=== PATIENT | female | born 1930 | race Caucasian/White ===

== ENCOUNTER → 2017-01-07 | Outpatient (CLI) | payer MEDICARE, BC | LOC: MW.CHNEURO 08:00 | PROVIDERS: ATTEND Psychiatry & Neurology Neuromuscular Medicine | DX: R25.9 Unspecified abnormal involuntary movements (principal); R42 Dizziness and giddiness | CPT/HCPCS: 99214 ==

== ENCOUNTER 2018-12-12 22:04 | Observation (INO) | payer MEDICARE, BC ==
--- NOTE | 2018-12-12 23:48 | CR ---
Pain AP pelvis left hip views. Comparison hip x-rays 03/12/2016. Findings: Right hip arthroplasty in satisfactory position. Moderate degenerative change of the left hip. No acute fracture seen. Nonspecific rounded calcifications in the pelvis. Degenerative changes SI joints. IMPRESSION: 1. No acute fracture or dislocation. Dictated by Marta Llanes MD @ Dec 12 2018 11:43PM Signed by Dr. Marta Llanes @ Dec 12 2018 11:48PM
--- NOTE | 2018-12-13 00:18 | EDM.PDOC ---
ED HPI GENERAL MEDICAL PROBLEM - General Chief Complaint: Lower Extremity Injury/Pain Stated Complaint: HIP PAIN Time Seen by Provider: 12/13/18 00:16 Source of Information: Reports: Patient - History of Present Illness INITIAL COMMENTS - FREE TEXT/NARRATIVE: HISTORY AND PHYSICAL: History of present illness: []Patient presents with left hip pain, she pivoted today at home in her kitchen and heard a pop and has been unable to ambulate since she generally lives independently and uses walker whenever is unable to ambulate at current even with assistance No other symptoms no fever nausea vomiting chills sweats no chest pain shortness breath headache dizziness palpitation no bowel or urine symptoms Review of systems: As per history of present illness and below otherwise all systems reviewed and negative. Past medical history: As per history of present illness and as reviewed below otherwise noncontributory. Surgical history: As per history of present illness and as reviewed below otherwise noncontributory. Social history: No reported history of drug or alcohol abuse. Family history: As per history of present illness and as reviewed below otherwise noncontributory. Physical exam: HEENT: Atraumatic, normocephalic, pupils reactive, negative for conjunctival pallor or scleral icterus, mucous membranes moist, throat clear, neck supple, nontender, trachea midline. Lungs: Clear to auscultation, breath sounds equal bilaterally, chest nontender. Heart: S1S2, regular, negative for clicks, rubs, or JVD. Abdomen: Soft, nondistended, nontender. Negative for masses or hepatosplenomegaly. Negative for costovertebral tenderness. Pelvis: Stable nontender. Genitourinary: Deferred. Rectal: Deferred. Extremities: Atraumatic, negative for cords or calf pain. Neurovascular unremarkable. Neuro: Awake, alert, oriented. Cranial nerves II through XII unremarkable. Cerebellum unremarkable. Motor and sensory unremarkable throughout. Exam nonfocal. Diagnostics: Left hip plain films Therapeutics Assistance with ADLs patient admitted observation Consider CT of hip Impression: [ left hip pain ] Definitive disposition and diagnosis as appropriate pending reevaluation and review of above. - Related Data Allergies Allergy/AdvReac Type Severity Reaction Status Date / Time YANY Inhibitors Allergy Airway Verified 04/19/16 15:37 Tightness erythromycin base Allergy Airway Verified 04/19/16 15:37 [From Staticin] Tightness ethyl alcohol [From Staticin] Allergy Airway Verified 04/19/16 15:37 Tightness hydrochlorothiazide Allergy Airway Verified 04/19/16 15:37 Tightness latex Allergy Rash Verified 03/12/16 13:23 perfume Allergy Airway Verified 04/19/16 15:37 Tightness acrylic Allergy Airway Uncoded 07/06/14 14:43 Tightness cleaning chemicals Allergy Difficulty Uncoded 12/12/18 22:12 Breathing metal Allergy Airway Uncoded 07/06/14 14:43 Tightness polyester Allergy Airway Uncoded 07/06/14 14:43 Tightness Home Meds: Home Meds Levothyroxine [Synthroid] 50 mcg PO DAILY 02/22/14 [History] Carbidopa/Levodopa [Carbidopa-Levodopa 25-100 Tab] 25 - 100 tab PO TID 04/19/16 [History] Mouthwash-Om 1 dose PO ASDIRECTED PRN 04/19/16 [History] Multivitamin [Daily Multiple Vitamin] 1 tab PO DAILY 04/19/16 [History] Omeprazole 20 mg PO BID 04/19/16 [History] Ubidecarenone [Co Q-10] 1 cap PO DAILY 04/19/16 [History] predniSONE [Prednisone] 5 mg PO BID 04/19/16 [History] Acetaminophen [Tylenol] 650 mg PO ASDIRECTED PRN 12/12/18 [History] Albuterol Sulfate [Proair Respiclick] 2 puff INH Q6H PRN 12/12/18 [History] Albuterol [Proventil Neb Soln] 2.5 mg INH QIDRT 12/12/18 [History] Better Woman 1 tab PO DAILY 12/12/18 [History] Brimonidine [Alphagan 0.2% Ophth Soln] 1 drop EYEBOTH BID 12/12/18 [History] Budesonide/Formoterol [Symbicort 160-4.5 MCG] 2 puff INH BID 12/12/18 [History] Carboxymethylcellulose Sodium [Refresh Tears] 1 drop EYEBOTH DAILY 12/12/18 [ History] Fish Oil/[place]-3 Fatty Acids [Fish Oil 1,000 MG] 1,000 mg PO BID 12/12/18 [ History] Mineral Oil/Petrolatum,White [Refresh P.M.] 1 applic EYEBOTH BEDTIME 12/12/18 [ History] Timolol Maleate [Timoptic 0.5% Ophth Soln] 1 drop EYEBOTH BID 12/12/18 [History] amLODIPine [Norvasc] 5 mg PO DAILY 12/12/18 [History] Past Medical History HEENT History: Reports: Allergic Rhinitis, Cataract, Hard of Hearing, Impaired Vision, Other (See Below) Other HEENT History: wears glasses Cardiovascular History: Reports: Hypertension Respiratory History: Reports: Asthma Gastrointestinal History: Reports: GERD Genitourinary History: Reports: 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: Musculoskeletal History: Reports: Arthritis, Osteoarthritis, RA, Other (See Below) Other Musculoskeletal History: bursitis Neurological History: Reports: Vertigo Other Neuro History: essential tremors Psychiatric History: Reports: Anxiety Endocrine/Metabolic History: Reports: Hypothyroidism Hematologic History: Reports: None Oncologic (Cancer) History: Reports: None Dermatologic History: Reports: Other (See Below) 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 - Past Surgical History Head Surgeries/Procedures: Reports: None HEENT Surgical History: Reports: Cataract Surgery, Tonsillectomy Cardiovascular Surgical History: Reports: None Respiratory Surgical History: Reports: None GI Surgical History: Reports: Appendectomy Female Surgical History: Reports: Kidney stone extraction Endocrine Surgical History: Reports: None Neurological Surgical History: Reports: None Musculoskeletal Surgical History: Reports: Hip Replacement, Other (See Below) Other Musculoskeletal Surgeries/Procedures:: right hip Oncologic Surgical History: Reports: None Social & Family History - Family History Family Medical History: Noncontributory - Tobacco Use Smoking Status *Q: Never Smoker Second Hand Smoke Exposure: No - Caffeine Use Caffeine Use: Reports: Coffee - Recreational Drug Use Recreational Drug Use: No Review of Systems - Review of Systems Review Of Systems: See Below ED EXAM, GENERAL - Physical Exam Exam: See Below Course - Vital Signs Last Recorded V/S: Last Vital Signs Temp 97 F 12/12/18 22:07 Pulse 74 12/12/18 22:46 Resp 18 12/12/18 22:46 BP 183/84 H 12/12/18 22:46 Pulse Ox 95 12/12/18 22:46 Departure - Departure Time of Disposition: 00:17 Disposition: Refer to Observation Condition: Good Clinical Impression: Injury of left hip - Discharge Information Referrals: PCP,None [Primary Care Provider] -
[2018-12-13] MEDS ORDERED: Sodium Chloride 0.9% 10 ML Syringe FLUSH PRN (01:26)
[2018-12-13] MEDS ORDERED: Sodium Chloride 0.9% 2.5 ML Syringe FLUSH PRN (01:26)
[2018-12-13] MEDS ORDERED: Acetaminophen 325 MG Tab PO PRN (01:27)
[2018-12-13] MEDS ORDERED: oxyCODONE 5 MG Tab PO PRN (01:28)
[2018-12-13] MEDS: Albuterol/Ipratropium 3.0-0.5 MG/3 ML Neb Soln NEB SCH ×5 (02:36→20:13)
[2018-12-13] MEDS: Budesonide/Formoterol 160-4.5 MCG/Puff 6 GM Inhaler INH SCH ×3 (02:38→20:43)
--- NOTE | 2018-12-13 06:43 | PCM.HP ---
H&P History of Present Illness - General Date of Service: 12/13/18 Admit Problem/Dx: Admission Diagnosis/Problem Admission Diagnosis/Problem Injury Source of Information: Patient, Old Records History Limitations: Reports: No Limitations - History of Present Illness Initial Comments - Free Text/Narative: The patient is an 88-year-old lady who presented to the emergency department out of concern for left hip pain. She was standing, turned felt and heard a loud pop in her left hip and had been unable to ambulate. The patient normally uses a walker and in the emergency department she was unable to ambulate. The patient was then admitted to observation, pain control and physical therapy evaluation. The patient lives by herself. The patient also has a history of hypertension, Parkinson's disorder and hypothyroidism for which she takes medication. The patient has said that her pain is somewhat improved. Onset of Symptoms: Reports: Sudden Duration of Symptoms: Reports: Hour(s):, Improving Location: Reports: Lower Extremity, Left. Denies: Radiates to Quality: Reports: Sharp, Stabbing Severity: Moderate Improves with: Reports: Rest Worsens with: Reports: Movement Context: Reports: Trauma Associated Symptoms: Reports: No Other Symptoms - Related Data Allergies/Adverse Reactions: Allergies Allergy/AdvReac Type Severity Reaction Status Date / Time YANY Inhibitors Allergy Airway Verified 12/13/18 04:32 Tightness erythromycin base Allergy Airway Verified 12/13/18 04:32 [From Staticin] Tightness ethyl alcohol [From Staticin] Allergy Airway Verified 12/13/18 04:32 Tightness hydrochlorothiazide Allergy Airway Verified 12/13/18 04:32 Tightness latex Allergy Rash Verified 12/13/18 04:32 perfume Allergy Airway Verified 12/13/18 04:32 Tightness acrylic Allergy Airway Uncoded 12/13/18 04:32 Tightness cleaning chemicals Allergy Difficulty Uncoded 12/13/18 04:32 Breathing metal Allergy Airway Uncoded 12/13/18 04:32 Tightness polyester Allergy Airway Uncoded 12/13/18 04:32 Tightness Home Medications: Home Meds Levothyroxine [Synthroid] 50 mcg PO DAILY 02/22/14 [History] Carbidopa/Levodopa [Carbidopa-Levodopa 25-100 Tab] 25 - 100 tab PO TID 04/19/16 [History] Mouthwash-Om 1 dose PO ASDIRECTED PRN 04/19/16 [History] Multivitamin [Daily Multiple Vitamin] 1 tab PO DAILY 04/19/16 [History] Omeprazole 20 mg PO BID 04/19/16 [History] Ubidecarenone [Co Q-10] 1 cap PO DAILY 04/19/16 [History] predniSONE [Prednisone] 5 mg PO BID 04/19/16 [History] Acetaminophen [Tylenol] 650 mg PO ASDIRECTED PRN 12/12/18 [History] Albuterol Sulfate [Proair Respiclick] 2 puff INH Q6H PRN 12/12/18 [History] Albuterol [Proventil Neb Soln] 2.5 mg INH QIDRT 12/12/18 [History] Better Woman 1 tab PO DAILY 12/12/18 [History] Brimonidine [Alphagan 0.2% Ophth Soln] 1 drop EYEBOTH BID 12/12/18 [History] Budesonide/Formoterol [Symbicort 160-4.5 MCG] 2 puff INH BID 12/12/18 [History] Carboxymethylcellulose Sodium [Refresh Tears] 1 drop EYEBOTH DAILY 12/12/18 [ History] Fish Oil/[place]-3 Fatty Acids [Fish Oil 1,000 MG] 1,000 mg PO BID 12/12/18 [ History] Mineral Oil/Petrolatum,White [Refresh P.M.] 1 applic EYEBOTH BEDTIME 12/12/18 [ History] Timolol Maleate [Timoptic 0.5% Ophth Soln] 1 drop EYEBOTH BID 12/12/18 [History] amLODIPine [Norvasc] 5 mg PO DAILY 12/12/18 [History] Past Medical History HEENT History: Reports: Allergic Rhinitis, Cataract, Hard of Hearing, Impaired Vision, Other (See Below) Other HEENT History: wears glasses, hearing aids and dentures-partial top and bottom Cardiovascular History: Reports: Hypertension Respiratory History: Reports: Asthma Gastrointestinal History: Reports: GERD Genitourinary History: Reports: None [employer] History: Reports: Musculoskeletal History: Reports: Arthritis, Osteoarthritis, RA, Other (See Below) Other Musculoskeletal History: bursitis Neurological History: Reports: Vertigo Other Neuro History: essential tremors Psychiatric History: Reports: Anxiety Endocrine/Metabolic History: Reports: Hypothyroidism Hematologic History: Reports: None Oncologic (Cancer) History: Reports: None Dermatologic History: Reports: Other (See Below) 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 - Past Surgical History Head Surgeries/Procedures: Reports: None HEENT Surgical History: Reports: Cataract Surgery, Tonsillectomy Cardiovascular Surgical History: Reports: None Respiratory Surgical History: Reports: None GI Surgical History: Reports: Appendectomy Female Surgical History: Reports: Kidney stone extraction Endocrine Surgical History: Reports: None Neurological Surgical History: Reports: None Musculoskeletal Surgical History: Reports: Hip Replacement, Other (See Below) Other Musculoskeletal Surgeries/Procedures:: right hip Oncologic Surgical History: Reports: None Social & Family History - Family History Family Medical History: Noncontributory - Tobacco Use Smoking Status *Q: Never Smoker Second Hand Smoke Exposure: No - Caffeine Use Caffeine Use: Reports: Coffee - Recreational Drug Use Recreational Drug Use: No - Living Situation & Occupation Living situation: Reports: Occupation: Retired H&P Review of Systems - Review of Systems: Review Of Systems: See Below General: Reports: No Symptoms HEENT: Reports: No Symptoms Pulmonary: Reports: No Symptoms Cardiovascular: Reports: No Symptoms Gastrointestinal: Reports: No Symptoms Genitourinary: Reports: No Symptoms Musculoskeletal: Reports: Leg Pain Skin: Reports: No Symptoms Psychiatric: Reports: No Symptoms Neurological: Reports: No Symptoms Hematologic/Lymphatic: Reports: No Symptoms Immunologic: Reports: No Symptoms Exam - Exam Exam: See Below - Vital Signs Vital Signs: Last Vital Signs Temp 36.3 C 12/13/18 04:00 Pulse 60 12/13/18 04:00 Resp 16 12/13/18 04:00 BP 130/67 12/13/18 04:00 Pulse Ox 95 12/13/18 04:00 Weight: 65 kg - Exam Quality Assessment: No: Supplemental Oxygen General: Alert, Oriented, 4 HEENT: Conjunctiva Clear, EACs Clear, EOMI, Hearing Intact, Mucosa Moist & [place] , Pupils Equal, PERRLA Neck: Supple, Trachea Midline, 2 Lungs: Clear to Auscultation, Normal Respiratory Effort Cardiovascular: Regular Rate, Regular Rhythm GI/Abdominal Exam: Normal Bowel Sounds, Soft, Non-Tender, No Distention (Female) Exam: Deferred Rectal (Female) Exam: Deferred Back Exam: Normal Inspection, Full Range of Motion, NT Extremities: Normal Inspection, Normal Range of Motion, Non-Tender (To palpation in inguinal area on left, no pain on internal/external rotation of hip.), No Pedal Edema. No: Joint Swelling Skin: Warm, Dry, Intact Neurological: Cranial Nerves Intact Neuro Extensive - Mental Status: Alert, Oriented x3 Psychiatric: Alert, Normal Affect, Normal Mood - Patient Data Result Diagrams: 12/13/18 10:41 12/13/18 10:41 - Problem List (1) Strain of left hip SNOMED Code(s): 117612400 ICD Code: S76.012A - STRAIN OF MUSCLE, FASCIA AND TENDON OF LEFT HIP, INIT ENCNTR Status: Acute Priority: High Current Visit: Yes Qualifiers: Encounter type: initial encounter Qualified Code(s): S76.012A - Strain of muscle, fascia and tendon of left hip, initial encounter (2) COPD (chronic obstructive pulmonary disease) SNOMED Code(s): 61553447 ICD Code: J44.9 - CHRONIC OBSTRUCTIVE PULMONARY DISEASE, UNSPECIFIED Status : Chronic Current Visit: Yes Qualifiers: COPD type: unspecified COPD Qualified Code(s): J44.9 - Chronic obstructive pulmonary disease, unspecified (3) Parkinsons disease SNOMED Code(s): 60654112 ICD Code: G20 - PARKINSON'S DISEASE Status: Chronic Priority: Medium Current Visit: Yes (4) Chronic renal insufficiency, stage III (moderate) SNOMED Code(s): 742725785 ICD Code: N18.3 - CHRONIC KIDNEY DISEASE, STAGE 3 (MODERATE) Status: Chronic Priority: Medium Current Visit: Yes Problem List Initiated/Reviewed/Updated: Yes Orders Last 24hrs: Active Orders 24 hr Category Date Time Status Admission Status [Patient Status] [ADT] Stat ADT 12/13/18 00:18 Active RT Aerosol Therapy [RC] ASDIRECTED Care 12/13/18 01:32 Active RT Post Treatment Assessment [RC] Click to Edit Care 12/13/18 01:30 Active RT Pre-Treatment Assessment [RC] Click to Edit Care 12/13/18 01:30 Active Consult to Occupational Therapy [OT Evaluation and Cons 12/13/18 01:27 Active Treatment] [CONS] Routine Consult to Physical Therapy [PT Evaluation and Cons 12/13/18 01:26 Active Treatment] [CONS] Routine Regular Diet [DIET] Diet 12/13/18 Breakfast Active Acetaminophen [Tylenol] Med 12/13/18 01:27 Active 650 mg PO Q6H PRN Albuterol/Ipratropium [DuoNeb 3.0-0.5 MG/3 ML] Med 12/13/18 01:30 Active 3 ml NEB QIDRT Budesonide/Formoterol [Symbicort 160-4.5 MCG] Med 12/13/18 01:28 Active 2 gm INH BID Sodium Chloride 0.9% [Saline Flush] Med 12/13/18 01:26 Active 10 ml FLUSH ASDIRECTED PRN Sodium Chloride 0.9% [Saline Flush] Med 12/13/18 01:26 Active 2.5 ml FLUSH ASDIRECTED PRN oxyCODONE Med 12/13/18 01:28 Active 5 mg PO Q4H PRN Saline Lock Insert [OM.PC] Routine Oth 12/13/18 01:26 Ordered Medication Orders Acetaminophen (Tylenol) 650 mg PO Q6H PRN PRN Reason: Pain (mild 1-3) Albuterol/Ipratropium (Duoneb 3.0-0.5 Mg/3 Ml) 3 ml NEB QIDRT [facility] Last Admin: 12/13/18 06:12 Dose: 3 ml Admin: 12/13/18 02:36 Dose: 3 ml Budesonide/Formoterol Fumarate (Symbicort 160-4.5 Mcg) 2 gm INH BID [facility] Last Admin: 12/13/18 02:38 Dose: 2 puff Oxycodone HCl (Oxycodone) 5 mg PO Q4H PRN PRN Reason: Pain (moderate 4-6) Sodium Chloride (Saline Flush) 10 ml FLUSH ASDIRECTED PRN PRN Reason: Keep Vein Open Sodium Chloride (Saline Flush) 2.5 ml FLUSH ASDIRECTED PRN PRN Reason: Keep Vein Open Assessment/Plan Comment:: The patient is an 88-year-old lady who had presented primarily out of concern of not being able to ambulate after feeling of a "pop" in her left hip. The patient says that her pain has improved. X-rays obtained to the emergency department had not shown any signs of fracture. The pain is also not present on internal and external rotation of her hip therefore occult fracture is less likely. The patient likely has a simple strain of her hip and physical therapy has been ordered for her. The patient will also be anticoagulated for DVT prophylaxis. The patient also has COPD which is otherwise stable at this point. She has been recommended to follow-up with her primary care physician. The patient should be appropriate for discharge tomorrow after evaluation by physical therapy.
[2018-12-13] MEDS ORDERED: Non-Formulary Medication 1 Each (Albuterol Sulfate [Proair Respiclick] 2 PUFF) INH PRN (06:49)
[2018-12-13] MEDS: Timolol Maleate 0.5% Ophth Soln 15 ML Bottle EYEBOTH SCH ×2 (08:46→20:42)
[2018-12-13] MEDS: Carboxymethylcellulose Sodium 0.5% Ophth Soln 0.4 ML UD Box of 30 EYEBOTH SCH (08:47)
[2018-12-13] MEDS ORDERED: Albuterol 8 GM Inhaler INH PRN (08:49)
[2018-12-13] MEDS: predniSONE 5 MG Tab PO SCH ×2 (08:49→20:40)
[2018-12-13] MEDS ORDERED: Levothyroxine 50 MCG Tab PO SCH (09:00)
[2018-12-13] MEDS ORDERED: Omeprazole 20 MG Cap.CR PO SCH (09:00)
[2018-12-13] MEDS ORDERED: amLODIPine 5 MG Tab PO SCH ×2 (09:00→21:00)
[2018-12-13] MEDS ORDERED: Brimonidine 0.2% Ophth Soln 5 ML Bottle EYEBOTH SCH (09:00)
[2018-12-13] MEDS ORDERED: Budesonide/Formoterol 160-4.5 MCG/Puff 6 GM Inhaler INH SCH (09:00)
[2018-12-13] MEDS: Carbidopa/Levodopa 25-100 MG Tab PO SCH ×3 (10:08→20:40)
[2018-12-13] MEDS ORDERED: Albuterol 0.083% 2.5 MG/3 ML Neb Soln INH SCH (11:00)
[2018-12-13] MEDS ORDERED: Albuterol 0.5% 2.5 MG/0.5 ML Neb Soln INH SCH (11:00)
[2018-12-13] MEDS: Heparin Sodium 5,000 Units/ML Vial SUBCUT SCH ×3 (11:05→23:36)
[2018-12-13] MEDS: Omeprazole 20 MG Cap.CR PO SCH (16:24)
[2018-12-13] MEDS: Brimonidine 0.2% Ophth Soln 5 ML Bottle EYEBOTH SCH (20:40)
[2018-12-13] MEDS ORDERED: Mineral Oil/Petrolatum Ophth Oint 3.5 GM Tube EYEBOTH SCH (21:00)
[2018-12-14] MEDS: Albuterol/Ipratropium 3.0-0.5 MG/3 ML Neb Soln NEB SCH ×2 (05:44→10:39)
[2018-12-14] MEDS: Omeprazole 20 MG Cap.CR PO SCH (06:36)
[2018-12-14] MEDS ORDERED: Levothyroxine 50 MCG Tab PO SCH (07:30)
[2018-12-14] MEDS: Heparin Sodium 5,000 Units/ML Vial SUBCUT SCH (09:33)
[2018-12-14] MEDS: Brimonidine 0.2% Ophth Soln 5 ML Bottle EYEBOTH SCH (09:34)
[2018-12-14] MEDS: Carbidopa/Levodopa 25-100 MG Tab PO SCH (09:34)
[2018-12-14] MEDS: Carboxymethylcellulose Sodium 0.5% Ophth Soln 0.4 ML UD Box of 30 EYEBOTH SCH (09:34)
[2018-12-14] MEDS: predniSONE 5 MG Tab PO SCH (09:34)
[2018-12-14] MEDS: Timolol Maleate 0.5% Ophth Soln 15 ML Bottle EYEBOTH SCH (09:35)
[2018-12-14 09:41] VITALS: BP 146/70
--- NOTE | 2018-12-14 09:58 | PCM.DCSUM1 ---
Discharge Summary - Hospital Course HPI Initial Comments: The patient was in her house, turned and felt a pop in her left hip. Brief History: Pain left hip, no trauma Diagnosis: Stroke: No - Discharge Data Discharge Date: 12/14/18 Discharge Disposition: Home, Self-Care 01 Condition: Fair - Discharge Diagnosis/Problem(s) (1) Strain of left hip SNOMED Code(s): 580812936 ICD Code: S76.012A - STRAIN OF MUSCLE, FASCIA AND TENDON OF LEFT HIP, INIT ENCNTR Status: Acute Priority: High Qualifiers: Encounter type: initial encounter Qualified Code(s): S76.012A - Strain of muscle, fascia and tendon of left hip, initial encounter (2) COPD (chronic obstructive pulmonary disease) SNOMED Code(s): 25358078 ICD Code: J44.9 - CHRONIC OBSTRUCTIVE PULMONARY DISEASE, UNSPECIFIED Status : Chronic Priority: Medium Qualifiers: COPD type: unspecified COPD Qualified Code(s): J44.9 - Chronic obstructive pulmonary disease, unspecified (3) Parkinsons disease SNOMED Code(s): 86466974 ICD Code: G20 - PARKINSON'S DISEASE Status: Chronic Priority: Medium (4) Chronic renal insufficiency, stage III (moderate) SNOMED Code(s): 669752882 ICD Code: N18.3 - CHRONIC KIDNEY DISEASE, STAGE 3 (MODERATE) Status: Chronic Priority: Medium - Patient Summary/Data Consults: Consultations 12/13/18 01:26 Consult to Physical Therapy [PT Evaluation and Treatment] [CONS] Routine 12/13/18 01:27 Consult to Occupational Therapy [OT Evaluation and Treatment] [CONS] Routine Hospital Course: The patient is an 88-year-old lady who presented to the emergency department out of concern for left hip pain. She was standing, turned felt and heard a loud pop in her left hip and had been unable to ambulate. The patient also had x -rays taken in the emergency department which did not show signs of fracture. The patient normally uses a walker and in the emergency department she was unable to ambulate. This was likely representing a strain which was causing the patient to have uncomfortable ambulation. The patient was then admitted to observation, pain control and physical therapy evaluation. Upon physical examination the pain did not return with internal or external rotation of her left hip therefore occult fracture was less likely and CT scan was not performed. The patient had continued to improve through the short course of hospitalization. The patient also had been ambulating with her walker and she had requested a collapsible frontwheel walker for her home. This is been ordered from [employer]. The patient has been tolerating her diet. She was relatively pain free. The patient has been tolerating her diet. She has been recommended to continue with her diet as tolerated. The patient is also to have activity as tolerated. She has been discharged from acute hospitalization with recommendations listed above. - Patient Instructions Diet: Heart Healthy Diet Activity: As Tolerated Notify Provider of: Fever, Increased Pain - Discharge Plan *PRESCRIPTION DRUG MONITORING PROGRAM REVIEWED*: No *COPY OF PRESCRIPTION DRUG MONITORING REPORT IN PATIENT LISBETH: No Home Medications: Home Meds Levothyroxine [Synthroid] 50 mcg PO DAILY 02/22/14 [History] Carbidopa/Levodopa [Carbidopa-Levodopa 25-100 Tab] 25 - 100 tab PO TID 04/19/16 [History] Mouthwash-Om 1 dose PO ASDIRECTED PRN 04/19/16 [History] Multivitamin [Daily Multiple Vitamin] 1 tab PO DAILY 04/19/16 [History] Omeprazole 20 mg PO BID 04/19/16 [History] Ubidecarenone [Co Q-10] 1 cap PO DAILY 04/19/16 [History] predniSONE [Prednisone] 5 mg PO BID 04/19/16 [History] Acetaminophen [Tylenol] 650 mg PO ASDIRECTED PRN 12/12/18 [History] Albuterol Sulfate [Proair Respiclick] 2 puff INH Q6H PRN 12/12/18 [History] Albuterol [Proventil] 2.5 mg INH Q4HRRT 12/12/18 [History] Better Woman 1 tab PO DAILY 12/12/18 [History] Brimonidine [Alphagan 0.2% Ophth Soln] 1 drop EYEBOTH BID 12/12/18 [History] Budesonide/Formoterol [Symbicort 160-4.5 MCG] 2 puff INH BID 12/12/18 [History] Carboxymethylcellulose Sodium [Refresh Tears] 1 drop EYEBOTH DAILY 12/12/18 [ History] Fish Oil/Webber-3 Fatty Acids [Fish Oil 1,000 MG] 1,000 mg PO BID 12/12/18 [ History] Mineral Oil/Petrolatum,White [Refresh P.M.] 1 applic EYEBOTH BEDTIME 12/12/18 [ History] Timolol Maleate [Timoptic 0.5% Ophth Soln] 1 drop EYEBOTH BID 12/12/18 [History] amLODIPine [Norvasc] 5 mg PO DAILY 12/12/18 [History] Oxygen Therapy Mode: Room Air Patient Handouts: Hip Pain Referrals: Adam Ash MD [Physician] - (Please call the clinic on Saturday for follow up appointment after 1 week.) - Discharge Summary/Plan Comment DC Time >30 min.: Yes - General Info Date of Service: 12/14/18 Admission Dx/Problem (Free Text: Admission Diagnosis/Problem Admission Diagnosis/Problem Injury, left hip with pain, no fracture Subjective Update: Better today. She feels like she can go home. Functional Status: Reports: Pain Controlled - Review of Systems General: Reports: No Symptoms HEENT: Reports: No Symptoms Pulmonary: Reports: No Symptoms Cardiovascular: Reports: No Symptoms Gastrointestinal: Reports: No Symptoms Genitourinary: Reports: No Symptoms Musculoskeletal: Reports: Leg Pain Skin: Reports: No Symptoms Neurological: Reports: No Symptoms Psychiatric: Reports: No Symptoms - Patient Data Vitals - Most Recent: Last Vital Signs Temp 36.2 C 12/14/18 08:00 Pulse 70 12/14/18 08:00 Resp 18 12/14/18 08:00 BP 146/70 H 12/14/18 08:00 Pulse Ox 94 L 12/14/18 08:00 Weight - Most Recent: 65 kg I&O - Last 24 hours: Intake & Output 12/13/18 12/14/18 12/14/18 22:59 06:59 14:59 Intake Total 1220 536 Output Total 500 350 Balance 720 186 Lab Results - Last 24 hrs: Laboratory Results - last 24 hr 12/13/18 12/13/18 Range/Units 10:41 10:41 WBC 6.88 (4.0-11.0) K/uL RBC 4.16 L (4.30-5.90) M/uL Hgb 13.7 (12.0-16.0) g/dL Hct 43.2 (36.0-46.0) % MCV 103.8 H (80.0-98.0) fL MCH 32.9 H (27.0-32.0) pg MCHC 31.7 (31.0-37.0) g/dL RDW Std Deviation 52.9 (28.0-62.0) fl RDW Coeff of Sánchez 14 (11.0-15.0) % Plt Count 149 L (150-400) K/uL MPV 9.30 (7.40-12.00) fL Neut % (Auto) 63.9 (48.0-80.0) % Lymph % (Auto) 26.3 (16.0-40.0) % Beauregard % (Auto) 8.7 (0.0-15.0) % Eos % (Auto) 1.0 (0.0-7.0) % Baso % (Auto) 0.1 (0.0-1.5) % Neut # (Auto) 4.4 (1.4-5.7) K/uL Lymph # (Auto) 1.8 (0.6-2.4) K/uL Beauregard # (Auto) 0.6 (0.0-0.8) K/uL Eos # (Auto) 0.1 (0.0-0.7) K/uL Baso # (Auto) 0.0 (0.0-0.1) K/uL Nucleated RBC % 0.0 /100WBC Nucleated RBCs # 0 K/uL Sodium 141 (136-145) mmol/L Potassium 4.1 (3.5-5.1) mmol/L Chloride 105 (98-107) mmol/L Carbon Dioxide 30.4 (21.0-32.0) mmol/L BUN 24 H (7.0-18.0) mg/dL Creatinine 1.1 H (0.6-1.0) mg/dL Est Cr Clr Drug Dosing 26.37 mL/min Estimated GFR (MDRD) 47.1 ml/min Glucose 160 H (74-106) mg/dL Calcium 9.6 (8.5-10.1) mg/dL Med Orders - Current: Current Medications Acetaminophen (Tylenol) 650 mg PO Q6H PRN PRN Reason: Pain (mild 1-3) Albuterol (Ventolin Hfa) 2 gm INH Q6H PRN PRN Reason: Wheezing Albuterol/Ipratropium (Duoneb 3.0-0.5 Mg/3 Ml) 3 ml NEB QIDRT [facility] Last Admin: 12/14/18 05:44 Dose: 3 ml Amlodipine Besylate (Norvasc) 5 mg PO BEDTIME [facility] Last Admin: 12/13/18 20:40 Dose: 5 mg Artificial Tears (Refresh Plus 0.5%) 0 each EYEBOTH DAILY [facility] Last Admin: 12/14/18 09:34 Dose: 1 drop Brimonidine Tartrate (Alphagan 0.2% Ophth Soln) 5 ml EYEBOTH BID [facility] Last Admin: 12/14/18 09:34 Dose: 1 drop Budesonide/Formoterol Fumarate (Symbicort 160-4.5 Mcg) 2 gm INH BID [facility] Last Admin: 12/13/18 20:43 Dose: 2 puff Carbidopa/Levodopa (Sinemet 25-100 Mg) 1 tab PO TID@0800,1400,2100 [facility] Last Admin: 12/14/18 09:34 Dose: 1 tab Heparin Sodium (Porcine) (Heparin Sodium) 5,000 units SUBCUT Q8H [facility] Last Admin: 12/14/18 09:33 Dose: 5,000 units Levothyroxine Sodium (Synthroid) 50 mcg PO ACBREAKFAST [facility] Last Admin: 12/14/18 06:36 Dose: 50 mcg Mineral Oil/White Petrolatum (Lacri-Lube S.O.P Oint) 1 gm EYEBOTH BEDTIME [facility] Last Admin: 12/13/18 20:40 Dose: Not Given Omeprazole (Omeprazole) 20 mg PO BIDAC [facility] Last Admin: 12/14/18 06:36 Dose: 20 mg Oxycodone HCl (Oxycodone) 5 mg PO Q4H PRN PRN Reason: Pain (moderate 4-6) Prednisone (Prednisone) 5 mg PO BID [facility] Last Admin: 12/14/18 09:34 Dose: 5 mg Sodium Chloride (Saline Flush) 10 ml FLUSH ASDIRECTED PRN PRN Reason: Keep Vein Open Sodium Chloride (Saline Flush) 2.5 ml FLUSH ASDIRECTED PRN PRN Reason: Keep Vein Open Timolol Maleate (Timoptic 0.5% Ophth Soln) 0 ml EYEBOTH BID [facility] Last Admin: 12/14/18 09:35 Dose: 1 drop Discontinued Medications Albuterol (Proventil) 2.5 mg INH QIDRT [facility] Albuterol (Proventil Neb Soln) 2.5 mg INH QIDRT [facility] Amlodipine Besylate (Norvasc) 5 mg PO DAILY [facility] Last Admin: 12/13/18 08:49 Dose: Not Given Brimonidine Tartrate (Alphagan 0.2% Ophth Soln) 0 ml EYEBOTH BID [facility] Budesonide/Formoterol Fumarate (Symbicort 160-4.5 Mcg) 0 gm INH BID [facility] Last Admin: 12/13/18 08:44 Dose: Not Given Levothyroxine Sodium (Synthroid) 50 mcg PO DAILY [facility] Last Admin: 12/13/18 08:42 Dose: 50 mcg Non-Formulary Medication (Albuterol Sulfate [Proair Respiclick]) 2 puff INH Q6H PRN PRN Reason: Wheezing Omeprazole (Omeprazole) 20 mg PO BID [facility] Last Admin: 12/13/18 08:42 Dose: 20 mg - Exam Quality Assessment: Denies: Supplemental Oxygen General: Reports: Alert, Oriented, Cooperative, No Acute Distress HEENT: Reports: Pupils Equal, Pupils Reactive Neck: Reports: Supple, Trachea Midline Lungs: Reports: Clear to Auscultation, Normal Respiratory Effort Cardiovascular: Reports: Regular Rate, Regular Rhythm GI/Abdominal Exam: Normal Bowel Sounds, Soft, Non-Tender, No Distention (Female) Exam: Deferred Rectal (Female) Exam: Deferred Back Exam: Reports: Normal Inspection (Kyphosis, age-appropriate) Extremities: Normal Inspection (Age appropriate) Skin: Reports: Warm, Dry, Intact Neurological: Reports: No New Focal Deficit Psy/Mental Status: Reports: Alert, Normal Affect, Normal Mood
[2018-12-14] MEDS: Budesonide/Formoterol 160-4.5 MCG/Puff 6 GM Inhaler INH SCH (10:54)
== END 2018-12-14 12:00 | disposition home or self-care (01) ==
LOC: MW.ED 22:04 → MW.MS 12-13 00:18
PROVIDERS: ADMIT Internal Medicine; ATTEND Internal Medicine
DX: S76.012A Strain of muscle, fascia and tendon of left hip, initial encounter (principal); G20 Parkinson's disease; I12.9 Hypertensive chronic kidney disease with stage 1 through stage 4 chronic kidney disease, or unspecified chronic kidney disease; N18.3 Chronic kidney disease, stage 3 (moderate); E03.9 Hypothyroidism, unspecified; J44.9 Chronic obstructive pulmonary disease, unspecified; Z79.51 Long term (current) use of inhaled steroids; Z88.1 Allergy status to other antibiotic agents; Z88.3 Allergy status to other anti-infective agents; Z88.8 Allergy status to other drugs, medicaments and biological substances; Z91.040 Latex allergy status; Z91.048 Other nonmedicinal substance allergy status
CPT/HCPCS: 36415; 73502; 80048; 85025; 94640; 96372; 97161; 99284; A9270; G0378; J1644; J7512; J7620-GY

== ENCOUNTER 2020-08-21 09:49 | Inpatient (IN) | payer MEDICARE, BC ==
[2020-08-21] MEDS ORDERED: cefTRIAXone 1 GM in Sodium Chloride 0.9% 100 ML IV ONE (10:06)
[2020-08-21] MEDS ORDERED: VANCOMYCIN IV ONE ×3 (10:06→10:30)
[2020-08-21] MEDS ORDERED: Sodium Chloride 0.9% 1,000 ML IV ONE (10:06)
[2020-08-21] MEDS ORDERED: DEXTROSE 5% IV ONE ×2 (10:06)
[2020-08-21] MEDS ORDERED: WATER IV ONE ×2 (10:06)
[2020-08-21] MEDS ORDERED: Sodium Chloride 0.9% 10 ML Syringe FLUSH PRN (10:06)
[2020-08-21] MEDS ORDERED: Sodium Chloride 0.9% 2.5 ML Syringe FLUSH PRN (10:06)
[2020-08-21] MEDS ORDERED: cefTRIAXone 1 GM in Premix Bag 1 BAG IV ONE (10:30)
[2020-08-21] MEDS ORDERED: WATER FOR INJ IV ONE (10:30)
[2020-08-21 10:32] LABS: CARBON DIOXIDE,CO2 29.9 mmol/L (21.0-32.0); POTASSIUM,K 4.1 mmol/L (3.5-5.1)
[2020-08-21] MEDS ORDERED: Morphine 2 MG/ML SYRINGE IVPUSH ONE ×2 (10:34→11:00)
[2020-08-21] MEDS ORDERED: Morphine 2 MG/ML SYRINGE ONE (10:35)
--- NOTE | 2020-08-21 10:48 | CR ---
Indication: Possible sepsis Technique: AP portable view of the chest. Comparison: February 23, 2014. Findings: The heart is normal in size. The lungs are clear. No infiltrate, pleural effusion, or pneumothorax is identified. Impression: No acute cardiopulmonary process Dictated by Anabel Bravo MD @ Aug 21 2020 10:45AM Signed by Dr. Anabel Bravo @ Aug 21 2020 10:46AM
[2020-08-21] MEDS ORDERED: Ketorolac 15 MG/ML SDV IVPUSH STA (11:24)
--- NOTE | 2020-08-21 12:38 | US ---
INDICATION: Right lower extremity greater than left lower extremity swelling COMPARISON: none TECHNIQUE: A compression venous ultrasound exam was performed of both lower extremities using sal[place] scale imaging, color Doppler and spectral Doppler analysis. FINDINGS: Sonographic imaging of the lower extremities demonstrates normal compressibility and color Doppler venous blood flow within the common femoral, deep femoral, and proximal greater saphenous veins. Within the thighs the femoral veins are patent and compressible. At a lower level the popliteal and posterior tibial veins also show normal compressibility and color Doppler venous blood flow. Within the posterior tibial vein on the right, probable chronic thrombus identified peripherally. IMPRESSION: Normal venous ultrasound exam. No evidence of deep vein thrombosis within either the left lower extremity. 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 Anabel Bravo @ Aug 21 2020 12:37PM
[2020-08-21] MEDS ORDERED: Ketorolac 15 MG/ML SDV IM ONE (14:16)
--- NOTE | 2020-08-21 15:28 | EDM.PDOC ---
ED HPI GENERAL MEDICAL PROBLEM - General Chief Complaint: Upper Extremity Injury/Pain Stated Complaint: EMS ARRIVAL Time Seen by Provider: 08/21/20 10:05 - History of Present Illness INITIAL COMMENTS - FREE TEXT/NARRATIVE: CHIEF COMPLAINT(S): Right hand and arm swelling HISTORY OF PRESENT ILLNESS: This is a 89-year-old woman with a past medical history of rheumatoid arthritis, hypertension and hypothyroidism who comes to the emergency department with a chief complaint of right hand arm and swelling. Per the patient and daughter who I spoke with over the phone the patient was walking from a whirlpool to her room where she hit the back of her hand and caused a cut. The patient states that since that time they did clean it and put some bandages on it however her hand and arm started to swell and get red. She denies any fevers, chills, chest pain or shortness of breath. She states there is significant amount of pain in her hand and her arm. She describes it as achy pain rated 10. She denies any numbness or tingling but states that she does have pain when she moves her fingers. She states that she has been taking Tylenol which has not relieved the pain. She denies any other medication use. She denies any other pain or symptoms. REVIEW OF SYSTEMS: Constitutional: Denies fever, chills. Eyes: Denies eye pain Ears, Nose, Mouth, & Throat: Denies earache Cardiovascular: Denies chest pain Respiratory: Denies shortness of breath Gastrointestinal: Denies Nausea, vomiting, diarrhea, hematochezia. Genitourinary: Denies hematuria MSK: Positive for right hand and arm swelling, redness, and pain Neurological: Denies blurred vision numbness, tingling, weakness Psychiatric: Denies depression PAST MEDICAL HISTORY: As per history of present illness and as reviewed below otherwise noncontributory. SURGICAL HISTORY: As per history of present illness and as reviewed below otherwise noncontributory. LMP: Menopausal SOCIAL HISTORY: As per history of present illness and as reviewed below otherwise noncontributory. FAMILY HISTORY: As per history of present illness and as reviewed below otherwise noncontributory. EXAMINATION OF ORGAN SYSTEMS/BODY AREAS: Constitutional: Blood pressure was 171/97, heart rate 115, respiratory rate 16 with an oxygen saturation of 100% on room air. Temperature 37.1 General: Elderly woman who appears to be in a moderate amount of pain. Psychiatric: Appropriate mood and affect. Eyes: No scleral icterus or conjunctival erythema ENMT: Moist mucous membranes. No pharyngeal erythema Cardiovascular: Tachycardic but regular no gallops, murmurs, or rubs. Bilateral upper extremity pulses symmetric and intact. There is nonpitting edema of the right lower extremity which is asymmetric to the left. Distal pulses are palpable. Capillary refill is less than 2 seconds in distal extremities Respiratory: Lungs clear to auscultation bilaterally. No wheezes, rales, or rhonchi. Gastrointestinal: Soft, non-tender, non-distended. Normoactive bowel sounds Genitourinary: No suprapubic tenderness Musculoskeletal: Normal range of motion. Skin: There is swelling to the patient's right hand up to her elbow with some erythema which is warm to the touch and a repaired superficial laceration on the posterior aspect of the right hand without any purulent drainage. There is serous drainage coming from it. The patient has full range of motion of her fingers and there is no crepitus felt. There is also some right lower extremity erythema however this is not warm and nontender. Neurological: Alert, GCS 15 MEDICAL DECISION MAKING AND COURSE IN THE ED WITH INTERPRETATION/REVIEW OF DIAGNOSTIC STUDIES: This is a 89-year-old woman with a past medical history of rheumatoid arthritis, hypothyroidism, and hypertension who comes to the emergency department with what appears to be right hand and arm cellulitis with possible cellulitis of the right lower extremity versus asymmetric swelling secondary to DVT. At this time given her tachycardia we did start the patient on ceftriaxone and vancomycin for skin infection. We provided the patient with a 30 cc/kg bolus and obtain a septic work-up. We also obtain bilateral lower extremity venous duplex to evaluate. We will provide the patient with 2 mg of IV morphine for pain relief. Twelve-lead EKG interpreted by myself. Sinus tachycardia at a rate of 109 beats per minute. Left axis. [place] interval is 142 ms. QRS duration is [address] segments are normal without elevations or depressions. There are Q waves in leads III and aVF. Hypertrophy not noted. No changes demonstrated from prior EKG dated 04/23/2016. 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 There is also a leukocytosis of 13.39 with neutrophilic predominance. Coags are within normal limits. Lactic acid is normal. CMP is unremarkable except for mild hypoalbuminemia at 2.9. Coronavirus is negative. Urinalysis was a clean catch and was negative for leukocyte esterase, negative for nitrites, and negative for blood. Interpretation: negative. The radiological images were viewed by myself along with reading the report from the radiologist. Chest x-ray does not reveal any acute cardiopulmonary process. Bilateral venous duplex does not reveal any evidence of acute DVT. There is suggestion of chronic posterior tibial vein thrombosis on the right. After labs and imaging I did discuss admission with the patient. She was amenable to this plan. [place] [phone]. She is also aware of the plan. I contacted Dr. Brooks who accepted the patient. The patient will be admitted to observation telemetry. DISPOSITION: Patient was admitted to observation telemetry in stable condition CONDITION: Fair PROCEDURES: None FINAL IMPRESSION(S)/DIAGNOSES: 1. Acute right upper extremity cellulitis 2. Chronic right posterior tibial vein thrombosis Marcel Hodge M.D. Right arm and leg Pain Score (Numeric/FACES): 8 - Related Data Allergies Allergy/AdvReac Type Severity Reaction Status Date / Time YANY Inhibitors Allergy Airway Verified 08/21/20 10:02 Tightness erythromycin base Allergy Airway Verified 08/21/20 10:02 [From Staticin] Tightness ethyl alcohol [From Staticin] Allergy Airway Verified 08/21/20 10:02 Tightness hydrochlorothiazide Allergy Airway Verified 08/21/20 10:02 Tightness latex Allergy Rash Verified 08/21/20 10:02 perfume Allergy Airway Verified 08/21/20 10:02 Tightness acrylic Allergy Airway Uncoded 08/21/20 10:02 Tightness cleaning chemicals Allergy Difficulty Uncoded 08/21/20 10:02 Breathing metal Allergy Airway Uncoded 08/21/20 10:02 Tightness polyester Allergy Airway Uncoded 08/21/20 10:02 Tightness Home Meds: Home Meds Levothyroxine [Synthroid] 50 mcg PO DAILY 02/22/14 [History] Carbidopa/Levodopa [Carbidopa-Levodopa 25-100 Tab] 25 - 100 tab PO TID 04/19/16 [History] Mouthwash-Om 1 dose PO ASDIRECTED PRN 04/19/16 [History] Multivitamin [Daily Multiple Vitamin] 1 tab PO DAILY 04/19/16 [History] Omeprazole 20 mg PO BID 04/19/16 [History] Ubidecarenone [Co Q-10] 1 cap PO DAILY 04/19/16 [History] predniSONE [Prednisone] 5 mg PO BID 04/19/16 [History] Acetaminophen [Tylenol] 650 mg PO ASDIRECTED PRN 12/12/18 [History] Albuterol Sulfate [Proair Respiclick] 2 puff INH Q6H PRN 12/12/18 [History] Albuterol [Proventil] 2.5 mg INH Q4HRRT 12/12/18 [History] Better Woman 1 tab PO DAILY 12/12/18 [History] Brimonidine [Alphagan 0.2% Ophth Soln] 1 drop EYEBOTH BID 12/12/18 [History] Budesonide/Formoterol [Symbicort 160-4.5 MCG] 2 puff INH BID 12/12/18 [History] Carboxymethylcellulose Sodium [Refresh Tears] 1 drop EYEBOTH DAILY 12/12/18 [History] Fish Oil/[place]-3 Fatty Acids [Fish Oil 1,000 MG] 1,000 mg PO BID 12/12/18 [History] Mineral Oil/Petrolatum,White [Refresh P.M.] 1 applic EYEBOTH BEDTIME 12/12/18 [History] amLODIPine [Norvasc] 5 mg PO DAILY 12/12/18 [History] timoloL maleate [Timoptic 0.5% Ophth Soln] 1 drop EYEBOTH BID 12/12/18 [History] Past Medical History HEENT History: Reports: Allergic Rhinitis, Cataract, Glaucoma, Hard of Hearing, Impaired Vision, Other (See Below) Other HEENT History: wears glasses, hearing aids and dentures-partial top and bottom Cardiovascular History: Reports: Hypertension Respiratory History: Reports: Asthma Gastrointestinal History: Reports: GERD Genitourinary History: Reports: None [employer]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: Musculoskeletal History: Reports: Arthritis, Osteoarthritis, RA, Other (See Below) Other Musculoskeletal History: bursitis Neurological History: Reports: Vertigo Other Neuro History: essential tremors Psychiatric History: Reports: Anxiety Endocrine/Metabolic History: Reports: Hypothyroidism Hematologic History: Reports: None Immunologic History: Reports: None Oncologic (Cancer) History: Reports: None Dermatologic History: Reports: Other (See Below) 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 - Infectious Disease History Infectious Disease History: Reports: None - Past Surgical History Head Surgeries/Procedures: Reports: None HEENT Surgical History: Reports: Cataract Surgery, Tonsillectomy Cardiovascular Surgical History: Reports: None Respiratory Surgical History: Reports: None GI Surgical History: Reports: Appendectomy Female Surgical History: Reports: Kidney stone extraction Endocrine Surgical History: Reports: None Neurological Surgical History: Reports: None Musculoskeletal Surgical History: Reports: Hip Replacement, Other (See Below) Other Musculoskeletal Surgeries/Procedures:: right hip Oncologic Surgical History: Reports: None Dermatological Surgical History: Reports: None Social & Family History - Family History Family Medical History: No Pertinent Family History - Caffeine Use Caffeine Use: Reports: Coffee - Recreational Drug Use Recreational Drug Use: No - Living Situation & Occupation Living situation: Reports: Occupation: Retired Review of Systems - Review of Systems Review Of Systems: See Below ED EXAM, GENERAL - Physical Exam Exam: See Below Course - Vital Signs Last Recorded V/S: Last Vital Signs Temp 37.1 C 08/21/20 15:10 Pulse 86 08/21/20 15:10 Resp 16 08/21/20 15:10 BP 138/84 08/21/20 15:10 Pulse Ox 97 08/21/20 15:10 - Orders/Labs/Meds Orders: Active Orders 24 hr Category Date Time Status CULTURE BLOOD [BC] Stat Lab 08/21/20 09:55 Received CULTURE BLOOD [BC] Stat Lab 08/21/20 10:24 Results Sodium Chloride 0.9% [Saline Flush] Med 08/21/20 10:06 Active 10 ml FLUSH ASDIRECTED PRN Sodium Chloride 0.9% [Saline Flush] Med 08/21/20 10:06 Active 2.5 ml FLUSH ASDIRECTED PRN Blood Culture x2 Reflex Set [OM.PC] Stat Oth 08/21/20 10:06 Ordered Saline Lock Insert [OM.PC] Stat Oth 08/21/20 10:06 Ordered Severe Sepsis Onset Time [OM.PC] Stat Oth 08/21/20 10:06 Ordered Medication Orders Sodium Chloride (Saline Flush) 10 ml FLUSH ASDIRECTED PRN PRN Reason: Keep Vein Open Last Admin: 08/21/20 10:27 Dose: 10 ml Documented by: ISELA Sodium Chloride (Saline Flush) 2.5 ml FLUSH ASDIRECTED PRN PRN Reason: Keep Vein Open Last Admin: 08/21/20 10:26 Dose: 2.5 ml Documented by: ISELA Labs: Laboratory Tests 08/21/20 08/21/20 08/21/20 Range/Units 09:55 09:55 09:55 WBC 13.39 H (4.0-11.0) K/uL RBC 4.27 L (4.30-5.90) M/uL Hgb 14.0 (12.0-16.0) g/dL Hct 44.1 (36.0-46.0) % MCV 103.3 H (80.0-98.0) fL MCH 32.8 H (27.0-32.0) pg MCHC 31.7 (31.0-37.0) g/dL RDW Std Deviation 56.7 (28.0-62.0) fl RDW Coeff of Sánchez 15 (11.0-15.0) % Plt Count 166 (150-400) K/uL MPV 9.50 (7.40-12.00) fL Neut % (Auto) 82.1 H (48.0-80.0) % Lymph % (Auto) 9.1 L (16.0-40.0) % Cook % (Auto) 8.6 (0.0-15.0) % Eos % (Auto) 0.1 (0.0-7.0) % Baso % (Auto) 0.1 (0.0-1.5) % Neut # (Auto) 11.0 H (1.4-5.7) K/uL Lymph # (Auto) 1.2 (0.6-2.4) K/uL Cook # (Auto) 1.2 H (0.0-0.8) K/uL Eos # (Auto) 0.0 (0.0-0.7) K/uL Baso # (Auto) 0.0 (0.0-0.1) K/uL Nucleated RBC % 0.0 /100WBC Nucleated RBCs # 0 K/uL INR 1.02 Lactate 1.0 (0.20-2.00) mmol/L Sodium (136-145) mmol/L Potassium (3.5-5.1) mmol/L Chloride (98-107) mmol/L Carbon Dioxide (21.0-32.0) mmol/L BUN (7.0-18.0) mg/dL Creatinine (0.6-1.0) mg/dL Est Cr Clr Drug Dosing mL/min Estimated GFR (MDRD) ml/min Glucose (74-106) mg/dL Calcium (8.5-10.1) mg/dL Total Bilirubin (0.2-1.0) mg/dL AST (15-37) IU/L ALT (14-63) IU/L Alkaline Phosphatase (46-116) U/L Total Protein (6.4-8.2) g/dL Albumin (3.4-5.0) g/dL Globulin (2.6-4.0) g/dL Albumin/Globulin Ratio (0.9-1.6) Urine Color Urine Appearance Urine pH (5.0-8.0) Ur Specific Lovell (1.001-1.035) Urine Protein (NEGATIVE) mg/dL Urine Glucose (UA) (NEGATIVE) mg/dL Urine Ketones (NEGATIVE) mg/dL Urine Occult Blood (NEGATIVE) Urine Nitrite (NEGATIVE) Urine Bilirubin (NEGATIVE) Urine Urobilinogen (<2.0) EU/dL Ur Leukocyte Esterase (NEGATIVE) Urine RBC (0-2/HPF) Urine WBC (0-5/HPF) Ur Epithelial Cells (NONE-FEW) Urine Bacteria (NEGATIVE) SARS-CoV-2 RNA (PEACE) (NEGATIVE) 08/21/20 08/21/20 08/21/20 Range/Units 09:55 10:52 11:10 WBC (4.0-11.0) K/uL RBC (4.30-5.90) M/uL Hgb (12.0-16.0) g/dL Hct (36.0-46.0) % MCV (80.0-98.0) fL MCH (27.0-32.0) pg MCHC (31.0-37.0) g/dL RDW Std Deviation (28.0-62.0) fl RDW Coeff of Sánchez (11.0-15.0) % Plt Count (150-400) K/uL MPV (7.40-12.00) fL Neut % (Auto) (48.0-80.0) % Lymph % (Auto) (16.0-40.0) % Cook % (Auto) (0.0-15.0) % Eos % (Auto) (0.0-7.0) % Baso % (Auto) (0.0-1.5) % Neut # (Auto) (1.4-5.7) K/uL Lymph # (Auto) (0.6-2.4) K/uL Cook # (Auto) (0.0-0.8) K/uL Eos # (Auto) (0.0-0.7) K/uL Baso # (Auto) (0.0-0.1) K/uL Nucleated RBC % /100WBC Nucleated RBCs # K/uL INR Lactate (0.20-2.00) mmol/L Sodium 136 (136-145) mmol/L Potassium 4.1 (3.5-5.1) mmol/L Chloride 102 (98-107) mmol/L Carbon Dioxide 29.9 (21.0-32.0) mmol/L BUN 26 H (7.0-18.0) mg/dL Creatinine 0.9 (0.6-1.0) mg/dL Est Cr Clr Drug Dosing 31.04 mL/min Estimated GFR (MDRD) 59.1 ml/min Glucose 114 H (74-106) mg/dL Calcium 10.0 (8.5-10.1) mg/dL Total Bilirubin 0.7 (0.2-1.0) mg/dL AST 17 (15-37) IU/L ALT 7 L (14-63) IU/L Alkaline Phosphatase 100 (46-116) U/L Total Protein 6.4 (6.4-8.2) g/dL Albumin 2.9 L (3.4-5.0) g/dL Globulin 3.5 (2.6-4.0) g/dL Albumin/Globulin Ratio 0.8 L (0.9-1.6) Urine Color YELLOW Urine Appearance CLEAR Urine pH 6.5 (5.0-8.0) Ur Specific [place] 1.015 (1.001-1.035) Urine Protein NEGATIVE (NEGATIVE) mg/dL Urine Glucose (UA) NEGATIVE (NEGATIVE) mg/dL Urine Ketones NEGATIVE (NEGATIVE) mg/dL Urine Occult Blood TRACE-INTACT H (NEGATIVE) Urine Nitrite NEGATIVE (NEGATIVE) Urine Bilirubin NEGATIVE (NEGATIVE) Urine Urobilinogen 0.2 (<2.0) EU/dL Ur Leukocyte Esterase NEGATIVE (NEGATIVE) Urine RBC 0-2 (0-2/HPF) Urine WBC 0-2 (0-5/HPF) Ur Epithelial Cells FEW (NONE-FEW) Urine Bacteria RARE (NEGATIVE) SARS-CoV-2 RNA (PEACE) NEGATIVE (NEGATIVE) Meds: Medications Generic Name Dose Route Start Last Admin Trade Name Freq PRN Reason Stop Dose Admin Sodium Chloride 10 ml 08/21/20 10:06 08/21/20 10:27 Saline Flush FLUSH 10 ml ASDIRECTED PRN Administration Keep Vein Open Sodium Chloride 2.5 ml 08/21/20 10:06 08/21/20 10:26 Saline Flush FLUSH 2.5 ml ASDIRECTED PRN Administration Keep Vein Open Discontinued Medications Generic Name Dose Route Start Last Admin Trade Name Freq PRN Reason Stop Dose Admin Vancomycin HCl 1.1 gm/ 250 mls @ 167 mls/hr 08/21/20 10:06 08/21/20 10:38 Dextrose/Water IV 08/21/20 11:35 Not Given ONETIME ONE Ceftriaxone Sodium 1 gm/ 100 mls @ 200 mls/hr 08/21/20 10:06 08/21/20 10:27 Sodium Chloride IV 08/21/20 10:35 Not Given STAT ONE Sodium Chloride 1,000 mls @ 999 mls/hr 08/21/20 10:06 08/21/20 10:24 Normal Saline IV 08/21/20 11:06 999 mls/hr BOLUS ONE Administration Protocol Ceftriaxone Sodium/Dextrose 1 50 mls @ 100 mls/hr 08/21/20 10:30 08/21/20 10:25 gm/ Premix IV 08/21/20 10:59 100 mls/hr STAT ONE Administration Vancomycin HCl 1.25 gm/ Premix 250 mls @ 167.007 mls/hr 08/21/20 10:30 08/21/20 10:37 IV 08/21/20 11:59 167.007 mls/hr ONETIME ONE Administration Ketorolac Tromethamine 15 mg 08/21/20 11:24 08/21/20 11:32 Toradol IVPUSH 08/21/20 11:25 15 mg ONETIME STA Administration Ketorolac Tromethamine 15 mg 08/21/20 14:16 08/21/20 14:37 Toradol IM 08/21/20 14:17 15 mg ONETIME ONE Administration Morphine Sulfate 2 mg 08/21/20 10:34 08/21/20 10:37 Morphine IVPUSH 08/21/20 10:35 2 mg ONETIME ONE Administration Morphine Sulfate Confirm 08/21/20 10:35 08/21/20 10:38 Morphine Administered 08/21/20 10:36 Not Given Dose 2 mg .ROUTE .STK-MED ONE Morphine Sulfate 2 mg 08/21/20 11:00 08/21/20 11:06 Morphine IVPUSH 08/21/20 11:01 2 mg ONETIME ONE Administration Departure - Departure Time of Disposition: 13:31 Disposition: Admitted As Inpatient 68 Clinical Impression: Cellulitis Qualifiers: Site of cellulitis: extremity Site of cellulitis of extremity: upper extremity Laterality: right Qualified Code(s): L03.113 - Cellulitis of right upper limb - Discharge Information Sepsis Event Note (ED) - Evaluation Sepsis Screening Result: No Definite Risk - Focused Exam Vital Signs: Vital Signs Temp Pulse Resp BP Pulse Ox 08/21/20 13:27 112 H 16 130/69 97 08/21/20 13:12 112 H 16 126/71 97 08/21/20 13:00 81 16 129/64 96 08/21/20 12:42 110 H 16 133/79 93 L 08/21/20 12:27 111 H 16 155/88 H 96 08/21/20 12:14 37.1 C 98 16 157/87 H 100 08/21/20 12:12 112 H 16 157/87 H 100 08/21/20 11:57 117 H 16 154/86 H 100 08/21/20 11:42 125 H 16 197/116 H 100 08/21/20 11:25 95 16 164/108 H 98 08/21/20 11:23 184/113 H 08/21/20 11:13 111 H 16 167/90 H 98 08/21/20 10:58 118 H 16 162/98 H 100 08/21/20 10:56 115 H 16 180/88 H 100 08/21/20 10:26 89 16 161/84 H 100 08/21/20 10:15 37.1 C 89 16 157/86 H 100 08/21/20 10:06 167/90 H 08/21/20 10:03 36.6 C 121 H 16 157/95 H 98 08/21/20 09:56 37.1 C 115 H 16 171/97 H 100 - My Orders Last 24 Hours: My Active Orders 08/21/20 09:55 CULTURE BLOOD [BC] Stat 08/21/20 10:06 Sodium Chloride 0.9% [Saline Flush] 10 ml FLUSH ASDIRECTED PRN Sodium Chloride 0.9% [Saline Flush] 2.5 ml FLUSH ASDIRECTED PRN Blood Culture x2 Reflex Set [OM.PC] Stat Saline Lock Insert [OM.PC] Stat Severe Sepsis Onset Time [OM.PC] Stat 08/21/20 10:24 CULTURE BLOOD [BC] Stat - Assessment/Plan Last 24 Hours: My Active Orders 08/21/20 09:55 CULTURE BLOOD [BC] Stat 08/21/20 10:06 Sodium Chloride 0.9% [Saline Flush] 10 ml FLUSH ASDIRECTED PRN Sodium Chloride 0.9% [Saline Flush] 2.5 ml FLUSH ASDIRECTED PRN Blood Culture x2 Reflex Set [OM.PC] Stat Saline Lock Insert [OM.PC] Stat Severe Sepsis Onset Time [OM.PC] Stat 08/21/20 10:24 CULTURE BLOOD [BC] Stat
[2020-08-21] MEDS ORDERED: Ondansetron 4 MG/2 ML SDV IVPUSH PRN (15:37)
[2020-08-21] MEDS ORDERED: [UNRECOGNIZED DRUG - OTHER] PO PRN (15:55)
[2020-08-21] MEDS ORDERED: Morphine 2 MG/ML SYRINGE IVPUSH PRN (15:58)
[2020-08-21] MEDS: Lactated Ringers 1,000 ML IV SCH (16:11)
[2020-08-21] MEDS: Enoxaparin 40 MG/0.4 ML Syringe SUBCUT SCH (16:14)
[2020-08-21] MEDS: Albuterol/Ipratropium 3.0-0.5 MG/3 ML Neb Soln NEB PRN (16:28)
--- NOTE | 2020-08-21 16:56 | PCM.HP.2 ---
<Grace Peters - Last Filed: 08/21/20 17:18> H&P History of Present Illness - General Date of Service: 08/21/20 Admit Problem/Dx: Admission Diagnosis/Problem Admission Diagnosis/Problem Cellulitis and abscess of arm Source of Information: Patient History Limitations: Reports: No Limitations - History of Present Illness Initial Comments - Free Text/Narative: Patient is a janene 89-year-old female with a past medical history of hypertension, asthma, Parkinson's and glaucoma. Patient came into ER with right arm pain and swelling since 2 days. States she had a bad fall for 5 days ago hurting her right arm and leg. States that she caught her dorsal aspect of the right hand. Over the last 2 days it appears to have become infected. She denies any fever, chills. States that pain medication and antibiotics given in the ED has helped with the pain initially a 10 out of 10 now a 4-5 on the pain scale described as a throb. There is significant erythema and swelling with pustular exudate draining from the cut. States that pain is worse with movement and better with rest. Patient denies any fever, chills, cough, GI, symptoms, leg pain, shortness of breath. ER course: Patient was given Vanco and Rocephin, Toradol/morphine, bolus of no rmal saline. 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 Right arm and leg Pain Score (Numeric/FACES): 8 - Related Data Allergies/Adverse Reactions: Allergies Allergy/AdvReac Type Severity Reaction Status Date / Time YANY Inhibitors Allergy Airway Verified 08/21/20 18:23 Tightness erythromycin base Allergy Airway Verified 08/21/20 18:23 [From Staticin] Tightness ethyl alcohol [From Staticin] Allergy Airway Verified 08/21/20 18:23 Tightness hydrochlorothiazide Allergy Airway Verified 08/21/20 18:23 Tightness latex Allergy Rash Verified 08/21/20 18:23 perfume Allergy Airway Verified 08/21/20 18:23 Tightness acrylic Allergy Airway Uncoded 08/21/20 18:23 Tightness cleaning chemicals Allergy Difficulty Uncoded 08/21/20 18:23 Breathing metal Allergy Airway Uncoded 12/27/20 18:23 Tightness polyester Allergy Airway Uncoded 08/21/20 18:23 Tightness Home Medications: Home Meds Levothyroxine [Synthroid] 50 mcg PO DAILY 02/22/14 [History] Carbidopa/Levodopa [Carbidopa-Levodopa 25-100 Tab] 25 - 100 tab PO TID 04/19/16 [History] Mouthwash-Om 1 dose PO ASDIRECTED PRN 04/19/16 [History] Multivitamin [Daily Multiple Vitamin] 1 tab PO DAILY 04/19/16 [History] Omeprazole 20 mg PO DAILY 04/19/16 [History] Ubidecarenone [Co Q-10] 1 cap PO DAILY 04/19/16 [History] predniSONE [Prednisone] 5 mg PO BID 04/19/16 [History] Acetaminophen [Tylenol] 650 mg PO ASDIRECTED PRN 12/12/18 [History] Albuterol Sulfate [Proair Respiclick] 2 puff INH Q6H PRN 12/12/18 [History] Albuterol [Proventil] 2.5 mg INH Q4HRRT 12/12/18 [History] Better Woman 1 tab PO DAILY 12/12/18 [History] Brimonidine [Alphagan 0.2% Ophth Soln] 1 drop EYEBOTH BID 12/12/18 [History] Budesonide/Formoterol [Symbicort 160-4.5 MCG] 2 puff INH BID 12/12/18 [History] Carboxymethylcellulose Sodium [Refresh Tears] 1 drop EYEBOTH DAILY 12/12/18 [History] Fish Oil/Desmet-3 Fatty Acids [Fish Oil 1,000 MG] 1,000 mg PO BID 12/12/18 [H istory] Mineral Oil/Petrolatum,White [Refresh P.M.] 1 applic EYEBOTH BEDTIME 12/12/18 [History] amLODIPine [Norvasc] 5 mg PO DAILY 12/12/18 [History] timoloL maleate [Timoptic 0.5% Ophth Soln] 1 drop EYEBOTH BID 12/12/18 [History] Codeine Phosphate/Guaifenesin [Guaifen-Codeine 100-10 mg/5 ml] 1 tsp PO Q4HR PRN 08/21/20 [History] Magnesium Hydroxide [Milk of Magnesia] 2 tsp PO DAILY PRN 08/21/20 [History] Melatonin/Pyridoxine HCl (B6) [Melatonin 5 mg Tablet] 1 each PO Q4HR PRN 08/21/20 [History] Past Medical History HEENT History: Reports: Allergic Rhinitis, Cataract, Glaucoma, Hard of Hearing, Impaired Vision, Other (See Below) Other HEENT History: wears glasses, hearing aids and dentures-partial top and bottom Cardiovascular History: Reports: Hypertension Respiratory History: Reports: Asthma Gastrointestinal History: Reports: GERD Genitourinary History: Reports: None [employer] History: Reports: Musculoskeletal History: Reports: Arthritis, Osteoarthritis, RA, Other (See Below) Other Musculoskeletal History: bursitis Neurological History: Reports: Vertigo Other Neuro History: essential tremors Psychiatric History: Reports: Anxiety Endocrine/Metabolic History: Reports: Hypothyroidism Hematologic History: Reports: None Immunologic History: Reports: None Oncologic (Cancer) History: Reports: None Dermatologic History: Reports: Other (See Below) 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 - Infectious Disease History Infectious Disease History: Reports: None - Past Surgical History Head Surgeries/Procedures: Reports: None HEENT Surgical History: Reports: Cataract Surgery, Tonsillectomy Cardiovascular Surgical History: Reports: None Respiratory Surgical History: Reports: None GI Surgical History: Reports: Appendectomy Female Surgical History: Reports: Kidney stone extraction Endocrine Surgical History: Reports: None Neurological Surgical History: Reports: None Musculoskeletal Surgical History: Reports: Hip Replacement, Other (See Below) Other Musculoskeletal Surgeries/Procedures:: right hip Oncologic Surgical History: Reports: None Dermatological Surgical History: Reports: None Social & Family History - Family History Family Medical History: No Pertinent Family History - Caffeine Use Caffeine Use: Reports: Coffee, Soda - Recreational Drug Use Recreational Drug Use: No - Living Situation & Occupation Living situation: Reports: Occupation: Retired H&P Review of Systems - Review of Systems: Review Of Systems: See Below General: Reports: No Symptoms HEENT: Reports: No Symptoms Pulmonary: Reports: No Symptoms Cardiovascular: Reports: No Symptoms Gastrointestinal: Reports: No Symptoms Genitourinary: Reports: No Symptoms Musculoskeletal: Reports: No Symptoms Skin: Reports: No Symptoms Psychiatric: Reports: No Symptoms Neurological: Reports: No Symptoms Hematologic/Lymphatic: Reports: No Symptoms Immunologic: Reports: No Symptoms Exam - Exam Exam: See Below - Vital Signs Vital Signs: Last Vital Signs Temp 98.7 F 08/21/20 15:10 Pulse 86 08/21/20 15:10 Resp 16 08/21/20 15:10 BP 138/84 08/21/20 15:10 Pulse Ox 97 08/21/20 15:10 Weight: 66.224 kg - Exam Quality Assessment: DVT Prophylaxis General: Alert, Oriented, Cooperative HEENT: Conjunctiva Clear, EACs Clear, EOMI, Hearing Intact, Mucosa Moist & [place], Nares Patent, Normal Nasal Septum, Posterior Pharynx Clear, Pupils Equal, Pupils Reactive, TMs Clear, PERRLA Neck: Supple, Trachea Midline. No: JVD Lungs: Clear to Auscultation, Normal Respiratory Effort Cardiovascular: Regular Rhythm, Tachycardia GI/Abdominal Exam: Normal Bowel Sounds, Soft, Non-Tender, No Distention, No Abnormal Bruit, No Mass Back Exam: Normal Inspection, Full Range of Motion Extremities: Normal Inspection, Arm Pain, Limited Range of Motion, Increased Warmth, Redness (Redness and swelling of right hand and forearm as well as right calf). No: Non-Tender, No Pedal Edema Peripheral Pulses: 2+: Radial (L), Radial (R), Dorsalis Pedis (L), Dorsalis Pedis (R) - Patient Data Lab Results Last 24 hrs: Laboratory Results - last 24 hr 08/21/20 08/21/20 08/21/20 Range/Units 09:55 09:55 09:55 WBC 13.39 H (4.0-11.0) K/uL RBC 4.27 L (4.30-5.90) M/uL Hgb 14.0 (12.0-16.0) g/dL Hct 44.1 (36.0-46.0) % MCV 103.3 H (80.0-98.0) fL MCH 32.8 H (27.0-32.0) pg MCHC 31.7 (31.0-37.0) g/dL RDW Std Deviation 56.7 (28.0-62.0) fl RDW Coeff of Sánchez 15 (11.0-15.0) % Plt Count 166 (150-400) K/uL MPV 9.50 (7.40-12.00) fL Neut % (Auto) 82.1 H (48.0-80.0) % Lymph % (Auto) 9.1 L (16.0-40.0) % [place] % (Auto) 8.6 (0.0-15.0) % Eos % (Auto) 0.1 (0.0-7.0) % Baso % (Auto) 0.1 (0.0-1.5) % Neut # (Auto) 11.0 H (1.4-5.7) K/uL Lymph # (Auto) 1.2 (0.6-2.4) K/uL [place] # (Auto) 1.2 H (0.0-0.8) K/uL Eos # (Auto) 0.0 (0.0-0.7) K/uL Baso # (Auto) 0.0 (0.0-0.1) K/uL Nucleated RBC % 0.0 /100WBC Nucleated RBCs # 0 K/uL INR 1.02 Lactate 1.0 (0.20-2.00) mmol/L Sodium (136-145) mmol/L Potassium (3.5-5.1) mmol/L Chloride (98-107) mmol/L Carbon Dioxide (21.0-32.0) mmol/L BUN (7.0-18.0) mg/dL Creatinine (0.6-1.0) mg/dL Est Cr Clr Drug Dosing mL/min Estimated GFR (MDRD) ml/min Glucose (74-106) mg/dL Calcium (8.5-10.1) mg/dL Total Bilirubin (0.2-1.0) mg/dL AST (15-37) IU/L ALT (14-63) IU/L Alkaline Phosphatase (46-116) U/L Total Protein (6.4-8.2) g/dL Albumin (3.4-5.0) g/dL Globulin (2.6-4.0) g/dL Albumin/Globulin Ratio (0.9-1.6) Urine Color Urine Appearance Urine pH (5.0-8.0) Ur Specific [place] (1.001-1.035) Urine Protein (NEGATIVE) mg/dL Urine Glucose (UA) (NEGATIVE) mg/dL Urine Ketones (NEGATIVE) mg/dL Urine Occult Blood (NEGATIVE) Urine Nitrite (NEGATIVE) Urine Bilirubin (NEGATIVE) Urine Urobilinogen (<2.0) EU/dL Ur Leukocyte Esterase (NEGATIVE) Urine RBC (0-2/HPF) Urine WBC (0-5/HPF) Ur Epithelial Cells (NONE-FEW) Urine Bacteria (NEGATIVE) SARS-CoV-2 RNA (PEACE) (NEGATIVE) 08/21/20 08/21/20 08/21/20 Range/Units 09:55 10:52 11:10 WBC (4.0-11.0) K/uL RBC (4.30-5.90) M/uL Hgb (12.0-16.0) g/dL Hct (36.0-46.0) % MCV (80.0-98.0) fL MCH (27.0-32.0) pg MCHC (31.0-37.0) g/dL RDW Std Deviation (28.0-62.0) fl RDW Coeff of Sánchez (11.0-15.0) % Plt Count (150-400) K/uL MPV (7.40-12.00) fL Neut % (Auto) (48.0-80.0) % Lymph % (Auto) (16.0-40.0) % [place] % (Auto) (0.0-15.0) % Eos % (Auto) (0.0-7.0) % Baso % (Auto) (0.0-1.5) % Neut # (Auto) (1.4-5.7) K/uL Lymph # (Auto) (0.6-2.4) K/uL [place] # (Auto) (0.0-0.8) K/uL Eos # (Auto) (0.0-0.7) K/uL Baso # (Auto) (0.0-0.1) K/uL Nucleated RBC % /100WBC Nucleated RBCs # K/uL INR Lactate (0.20-2.00) mmol/L Sodium 136 (136-145) mmol/L Potassium 4.1 (3.5-5.1) mmol/L Chloride 102 (98-107) mmol/L Carbon Dioxide 29.9 (21.0-32.0) mmol/L BUN 26 H (7.0-18.0) mg/dL Creatinine 0.9 (0.6-1.0) mg/dL Est Cr Clr Drug Dosing 31.04 mL/min Estimated GFR (MDRD) 59.1 ml/min Glucose 114 H (74-106) mg/dL Calcium 10.0 (8.5-10.1) mg/dL Total Bilirubin 0.7 (0.2-1.0) mg/dL AST 17 (15-37) IU/L ALT 7 L (14-63) IU/L Alkaline Phosphatase 100 (46-116) U/L Total Protein 6.4 (6.4-8.2) g/dL Albumin 2.9 L (3.4-5.0) g/dL Globulin 3.5 (2.6-4.0) g/dL Albumin/Globulin Ratio 0.8 L (0.9-1.6) Urine Color YELLOW Urine Appearance CLEAR Urine pH 6.5 (5.0-8.0) Ur Specific [place] 1.015 (1.001-1.035) Urine Protein NEGATIVE (NEGATIVE) mg/dL Urine Glucose (UA) NEGATIVE (NEGATIVE) mg/dL Urine Ketones NEGATIVE (NEGATIVE) mg/dL Urine Occult Blood TRACE-INTACT H (NEGATIVE) Urine Nitrite NEGATIVE (NEGATIVE) Urine Bilirubin NEGATIVE (NEGATIVE) Urine Urobilinogen 0.2 (<2.0) EU/dL Ur Leukocyte Esterase NEGATIVE (NEGATIVE) Urine RBC 0-2 (0-2/HPF) Urine WBC 0-2 (0-5/HPF) Ur Epithelial Cells FEW (NONE-FEW) Urine Bacteria RARE (NEGATIVE) SARS-CoV-2 RNA (PEACE) NEGATIVE (NEGATIVE) Result Diagrams: 08/21/20 09:55 08/21/20 09:55 Nikolai Results Last 24 hrs: Microbiology 08/21/20 10:24 Anaerobic Blood Culture - Final Blood - Venous - Lab Draw Sepsis Event Note - Evaluation Sepsis Screening Result: No Definite Risk - Focused Exam Vital Signs: Vital Signs Temp Pulse Resp BP Pulse Ox 08/21/20 15:10 98.7 F 86 16 138/84 97 08/21/20 14:47 122 H 16 147/68 H 97 08/21/20 14:27 115 H 16 149/78 H 98 08/21/20 14:12 84 16 135/64 98 08/21/20 13:50 98.7 F 116 H 16 145/79 H 92 L 08/21/20 13:42 122 H 16 145/79 H 98 08/21/20 13:27 112 H 16 130/69 97 08/21/20 13:12 112 H 16 126/71 97 08/21/20 13:00 81 16 129/64 96 08/21/20 12:42 110 H 16 133/79 93 L 08/21/20 12:27 111 H 16 155/88 H 96 08/21/20 12:14 98.7 F 98 16 157/87 H 100 08/21/20 12:12 112 H 16 157/87 H 100 08/21/20 11:57 117 H 16 154/86 H 100 08/21/20 11:42 125 H 16 197/116 H 100 08/21/20 11:25 95 16 164/108 H 98 08/21/20 11:23 184/113 H 08/21/20 11:13 111 H 16 167/90 H 98 08/21/20 10:58 118 H 16 162/98 H 100 08/21/20 10:56 115 H 16 180/88 H 100 08/21/20 10:26 89 16 161/84 H 100 08/21/20 10:15 98.7 F 89 16 157/86 H 100 08/21/20 10:06 167/90 H 08/21/20 10:03 97.8 F 121 H 16 157/95 H 98 08/21/20 09:56 98.7 F 115 H 16 171/97 H 100 Problem List Initiated/Reviewed/Updated: Yes Orders Last 24hrs: Active Orders 24 hr Category Date Time Status Admission Status [Patient Status] [ADT] Stat ADT 08/21/20 13:31 Active Cardiac Monitoring [RC] . DIRECTED Care 08/21/20 13:31 Active Oxygen Therapy [RC] PRN Care 08/21/20 15:37 Active RT Aerosol Therapy [RC] ASDIRECTED Care 08/21/20 15:46 Active RT Post Treatment Assessment [RC] Click to Edit Care 08/21/20 15:58 Active RT Pre-Treatment Assessment [RC] Click to Edit Care 08/21/20 15:58 Active Telemetry Monitoring [Cardiac Monitoring] [RC] Q8H Care 08/21/20 14:05 Active VTE/DVT Education [RC] PER UNIT ROUTINE Care 08/21/20 15:37 Active Vital Signs [RC] Q4H Care 08/21/20 15:37 Active Heart Healthy Diet [DIET] Diet 08/21/20 Dinner Active CULTURE BLOOD [BC] Stat Lab 08/21/20 09:55 Received CULTURE BLOOD [BC] Stat Lab 08/21/20 10:24 Results CULTURE WOUND [RM] Routine Lab 08/21/20 16:44 Ordered Acetaminophen [TylenoL] Med 08/21/20 15:37 Active 650 mg PO Q4H PRN Albuterol/Ipratropium [DuoNeb 3.0-0.5 MG/3 ML] Med 08/21/20 15:37 Active 3 ml NEB Q4HRRT PRN Brimonidine [Alphagan 0.2% Ophth Soln] Med 08/21/20 21:00 Active 0 ml EYEBOTH BID Budesonide/Formoterol [Symbicort 160-4.5 MCG] Med 08/21/20 21:00 Active 0 gm INH BID Carbidopa/Levodopa [Sinemet 25-100 mg] Med 08/21/20 22:00 Active 1 tab PO TID Carboxymethylcellulose Sodium [Refresh Plus 0.5%] Med 08/22/20 09:00 Active 0 each EYEBOTH DAILY Enoxaparin [Lovenox] Med 08/21/20 16:00 Active 40 mg SUBCUT Q12H Fish Oil/Desmet-3 Fatty Acids [Fish Oil] Med 08/21/20 21:00 Active 1 gm PO BID Lactated Ringers [Ringers, Lactated] 1,000 ml Med 08/21/20 15:45 Active IV ASDIRECTED Levothyroxine [Synthroid] Med 08/22/20 07:30 Active 50 mcg PO ACBREAKFAST Mineral Oil/Petrolatum,White [Refresh P.M.] Med 08/21/20 21:00 Ordered 1 applic EYEBOTH BEDTIME Morphine Med 08/21/20 15:58 Active 1 mg IVPUSH Q3H PRN Mouthwash-Om Med 08/21/20 15:55 Ordered 1 dose PO ASDIRECTED PRN Multivitamins [Tab-A-Harjeet] Med 08/22/20 09:00 Active 1 tab PO DAILY Omeprazole Med 08/21/20 17:00 Active 20 mg PO BIDAC Ondansetron [Zofran] Med 08/21/20 15:37 Active 4 mg IVPUSH Q4H PRN Pharmacy to Dose - Vancomycin Med 08/21/20 16:00 Pending 1 dose .XX ASDIRECTED Sodium Chloride 0.9% [Saline Flush] Med 08/21/20 10:06 Active 10 ml FLUSH ASDIRECTED PRN Sodium Chloride 0.9% [Saline Flush] Med 08/21/20 10:06 Active 2.5 ml FLUSH ASDIRECTED PRN amLODIPine [Norvasc] Med 08/22/20 09:00 Active 5 mg PO DAILY timoloL maleate [Timoptic 0.5% Oph Soln] Med 08/21/20 21:00 Active 0 ml EYEBOTH BID Blood Culture x2 Reflex Set [OM.PC] Stat Oth 08/21/20 10:06 Ordered Saline Lock Insert [OM.PC] Stat Oth 08/21/20 10:06 Ordered Severe Sepsis Onset Time [OM.PC] Stat Oth 08/21/20 10:06 Ordered Resuscitation Status Routine Resus Stat 08/21/20 15:51 Ordered Medication Orders Acetaminophen (Tylenol) 650 mg PO Q4H PRN PRN Reason: Pain (Mild 1-3)/fever Albuterol/Ipratropium (Duoneb 3.0-0.5 Mg/3 Ml) 3 ml NEB Q4HRRT PRN PRN Reason: Shortness Of Breath/wheezing Last Admin: 08/21/20 16:28 Dose: 3 ml Documented by: IVANIA Amlodipine Besylate (Norvasc) 5 mg PO DAILY [facility] Artificial Tears (Refresh Plus 0.5%) 0 each EYEBOTH DAILY [facility] Brimonidine Tartrate (Alphagan 0.2% [facility] Sol) 0 ml EYEBOTH BID [facility] Budesonide/Formoterol Fumarate (Symbicort 160-4.5 Mcg) 0 gm INH BID [facility] Carbidopa/Levodopa (Sinemet 25-100 Mg) 1 tab PO TID [facility] Enoxaparin Sodium (Lovenox) 40 mg SUBCUT Q12H [facility] Last Admin: 08/21/20 16:14 Dose: 40 mg Documented by: NICOLE Fish Oil (Fish Oil) 1 gm PO BID [facility] Lactated Ringer's (Ringers, Lactated) 1,000 mls @ 125 mls/hr IV ASDIRECTED [facility] Last Admin: 08/21/20 16:11 Dose: 125 mls/hr Documented by: NICOLE Levothyroxine Sodium (Synthroid) 50 mcg PO ACBREAKFAST [facility] Morphine Sulfate (Morphine) 1 mg IVPUSH Q3H PRN PRN Reason: Pain (severe 7-10) Multivitamins/Minerals/Vitamin C (Tab-A-Harjeet) 1 tab PO DAILY [facility] Non-Formulary Medication (Mineral Oil/Petrolatum,White [Refresh P.M.]) 1 applic EYEBOTH BEDTIME [facility] Non-Formulary Medication (Mouthwash-Om) 1 dose PO ASDIRECTED PRN PRN Reason: Other Omeprazole (Omeprazole) 20 mg PO BIDAC [facility] Ondansetron HCl (Zofran) 4 mg IVPUSH Q4H PRN PRN Reason: Nausea/Vomiting Sodium Chloride (Saline Flush) 10 ml FLUSH ASDIRECTED PRN PRN Reason: Keep Vein Open Last Admin: 08/21/20 10:27 Dose: 10 ml Documented by: ISELA Sodium Chloride (Saline Flush) 2.5 ml FLUSH ASDIRECTED PRN PRN Reason: Keep Vein Open Last Admin: 08/21/20 10:26 Dose: 2.5 ml Documented by: ISELA Timolol Maleate (Timoptic 0.5% [facility]) 0 ml EYEBOTH BID [facility] Vancomycin HCl (Pharmacy To Dose - Vancomycin) 1 dose .XX ASDIRECTED [facility] Assessment/Plan Comment:: Patient is a 89-year-old female admitted for right arm cellulitis and 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 1. Cellulitis: Leukocytosis secondary to above, 13.4, no fever, no chills. Patient is tachycardic with heart rate of 116 and hypertensive with blood pressure 145/76, normal lactate 1.0. Started patient on empiric antibiotics vancomycin, blood cultures and wound culture pending, will narrow coverage based on cultures. 1 mg morphine every 3 hours as needed for pain Tylenol for fever as needed Zofran for nausea Telemetry 2. Constipation: MiraLAX daily Docusate twice daily DVT prophylaxis 40 mg Lovenox twice daily, GI prophylaxis 40 pantoprazole daily, up with assistance. <Kacy Rivers - Last Filed: 08/22/20 14:08> H&P History of Present Illness - General Admit Problem/Dx: Admission Diagnosis/Problem Admission Diagnosis/Problem Cellulitis and abscess of arm Exam - Vital Signs Vital Signs: Last Vital Signs Temp 36.4 C 08/22/20 12:32 Pulse 76 08/22/20 12:32 Resp 16 08/22/20 12:32 BP 118/71 08/22/20 12:32 Pulse Ox 95 08/22/20 12:32 - Patient Data Lab Results Last 24 hrs: Laboratory Results - last 24 hr 08/21/20 08/22/20 08/22/20 Range/Units 09:55 05:30 05:30 WBC 11.88 H (4.0-11.0) K/uL RBC 3.61 L (4.30-5.90) M/uL Hgb 11.8 L (12.0-16.0) g/dL Hct 37.6 (36.0-46.0) % MCV 104.2 H (80.0-98.0) fL MCH 32.7 H (27.0-32.0) pg MCHC 31.4 (31.0-37.0) g/dL RDW Std Deviation 57.5 (28.0-62.0) fl RDW Coeff of Sánchez 15 (11.0-15.0) % Plt Count 174 (150-400) K/uL MPV 9.50 (7.40-12.00) fL Neut % (Auto) 75.3 (48.0-80.0) % Lymph % (Auto) 15.7 L (16.0-40.0) % [place] % (Auto) 8.3 (0.0-15.0) % Eos % (Auto) 0.6 (0.0-7.0) % Baso % (Auto) 0.1 (0.0-1.5) % Neut # (Auto) 8.9 H (1.4-5.7) K/uL Lymph # (Auto) 1.9 (0.6-2.4) K/uL [place] # (Auto) 1.0 H (0.0-0.8) K/uL Eos # (Auto) 0.1 (0.0-0.7) K/uL Baso # (Auto) 0.0 (0.0-0.1) K/uL Nucleated RBC % 0.0 /100WBC Nucleated RBCs # 0 K/uL Sodium 135 L (136-145) mmol/L Potassium 4.1 (3.5-5.1) mmol/L Chloride 102 (98-107) mmol/L Carbon Dioxide 25.9 (21.0-32.0) mmol/L BUN 27 H (7.0-18.0) mg/dL Creatinine 1.0 (0.6-1.0) mg/dL Est Cr Clr Drug Dosing 27.93 mL/min Estimated GFR (MDRD) 52.3 ml/min Glucose 88 (74-106) mg/dL Calcium 9.6 (8.5-10.1) mg/dL Phosphorus 2.7 2.8 (2.6-4.7) mg/dL Magnesium 2.0 1.6 L (1.8-2.4) mg/dL Result Diagrams: 08/22/20 05:30 08/22/20 05:30 Nikolai Results Last 24 hrs: Microbiology 08/21/20 10:24 Aerobic Blood Culture - Preliminary Blood - Venous - Lab Draw NO GROWTH AFTER 1 DAY Anaerobic Blood Culture - Final 08/21/20 09:55 Aerobic Blood Culture - Preliminary Blood - Venous NO GROWTH AFTER 1 DAY Anaerobic Blood Culture - Preliminary NO GROWTH AFTER 1 DAY Sepsis Event Note - Focused Exam Vital Signs: Vital Signs Temp Pulse Resp BP BP Pulse Ox 08/22/20 12:32 36.4 C 76 16 118/71 95 08/22/20 08:15 112/64 08/22/20 07:34 36.4 C 109 H 20 112/64 93 L 08/22/20 04:00 36.8 C 110 H 18 137/73 92 L Orders Last 24hrs: Active Orders 24 hr Category Date Time Status Admission Status [Patient Status] [ADT] Stat ADT 08/21/20 13:31 Active Cardiac Monitoring [RC] . DIRECTED Care 08/21/20 13:31 Active Oxygen Therapy [RC] PRN Care 08/21/20 15:37 Active RT Aerosol Therapy [RC] ASDIRECTED Care 08/21/20 15:46 Active RT Post Treatment Assessment [RC] Click to Edit Care 08/21/20 15:58 Active RT Pre-Treatment Assessment [RC] Click to Edit Care 08/21/20 15:58 Active Telemetry Monitoring [Cardiac Monitoring] [RC] Q8H Care 08/21/20 14:05 Active VTE/DVT Education [RC] PER UNIT ROUTINE Care 08/21/20 15:37 Active Vital Signs [RC] Q4H Care 08/21/20 15:37 Active Heart Healthy Diet [DIET] Diet 08/21/20 Dinner Active CULTURE WOUND [RM] Routine Lab 08/21/20 16:50 Received VANCOMYCIN TROUGH [CHEM] Timed Lab 08/25/20 10:00 Ordered Acetaminophen [TylenoL] Med 08/21/20 15:37 Active 650 mg PO Q4H PRN Albuterol/Ipratropium [DuoNeb 3.0-0.5 MG/3 ML] Med 08/22/20 14:00 Active 3 ml NEB Q4HRRT Brimonidine [Alphagan 0.2% Ophth Soln] Med 08/21/20 21:00 Active 0 ml EYEBOTH BID Budesonide/Formoterol [Symbicort 160-4.5 MCG] Med 08/21/20 21:00 Active 0 gm INH BID Carbidopa/Levodopa [Sinemet 25-100 mg] Med 08/21/20 22:00 Active 1 tab PO TID Carboxymethylcellulose Sodium [Refresh Plus 0.5%] Med 08/21/20 21:00 Active 0 each EYEBOTH BID Enoxaparin [Lovenox] Med 08/22/20 18:30 Active 70 mg SUBCUT Q24H Fish Oil/Desmet-3 Fatty Acids [Fish Oil] Med 08/21/20 21:00 Active 1 gm PO BID Lactated Ringers [Ringers, Lactated] 1,000 ml Med 08/21/20 15:45 Active IV ASDIRECTED Levothyroxine [Synthroid] Med 08/22/20 07:30 Active 50 mcg PO ACBREAKFAST Morphine Med 08/21/20 15:58 Active 1 mg IVPUSH Q3H PRN Multivitamins [Tab-A-Harjeet] Med 08/22/20 09:00 Active 1 tab PO DAILY Omeprazole Med 08/21/20 17:00 Active 20 mg PO BIDAC Ondansetron [Zofran] Med 08/21/20 15:37 Active 4 mg IVPUSH Q4H PRN Pharmacy to Dose - Vancomycin Med 08/21/20 16:00 Active 1 dose .XX ASDIRECTED Piperacillin/Tazobactam [Piperacil-Tazobact] 3.375 gm Med 08/22/20 13:30 Active Sodium Chloride 0.9% [Normal Saline] 50 ml IV Q6H Vancomycin [Vancocin] 1 gm Med 08/22/20 11:30 Active Sodium Chloride 0.9% [Normal Saline (AdvBag)] 250 ml IV Q24H amLODIPine [Norvasc] Med 08/22/20 09:00 Active 5 mg PO DAILY predniSONE Med 08/22/20 12:30 Active 5 mg PO BID timoloL maleate [Timoptic 0.5% Ophth Soln] Med 08/21/20 21:00 Active 0 ml EYEBOTH BID Resuscitation Status Routine Resus Stat 08/21/20 15:51 Ordered Medication Orders Acetaminophen (Tylenol) 650 mg PO Q4H PRN PRN Reason: Pain (Mild 1-3)/fever Last Admin: 08/22/20 12:55 Dose: 650 mg Documented by: Admin: 08/22/20 05:59 Dose: 650 mg Documented by: Admin: 08/21/20 21:14 Dose: 650 mg Documented by: GEORGI Albuterol/Ipratropium (Duoneb 3.0-0.5 Mg/3 Ml) 3 ml NEB Q4HRRT [facility] Last Admin: 08/22/20 13:13 Dose: 3 ml Documented by: SARAH Amlodipine Besylate (Norvasc) 5 mg PO DAILY [facility] Last Admin: 08/22/20 08:15 Dose: 5 mg Documented by: NICOLE Artificial Tears (Refresh Plus 0.5%) 0 each EYEBOTH BID [facility] Last Admin: 08/22/20 08:17 Dose: 1 drop Documented by: Admin: 08/21/20 21:08 Dose: 1 drop Documented by: GEORGI Brimonidine Tartrate (Alphagan 0.2% Oph Soln) 0 ml EYEBOTH BID [facility] Last Admin: 08/22/20 08:21 Dose: 1 drop Documented by: Admin: 08/21/20 22:13 Dose: 1 drop Documented by: CANDACE Budesonide/Formoterol Fumarate (Symbicort 160-4.5 Mcg) 0 gm INH BID [facility] Last Admin: 08/22/20 08:31 Dose: 2 puff Documented by: Admin: 08/21/20 21:00 Dose: Not Given Documented by: CANDACE Carbidopa/Levodopa (Sinemet 25-100 Mg) 1 tab PO TID [facility] Last Admin: 08/22/20 05:59 Dose: 1 tab Documented by: Admin: 08/21/20 21:08 Dose: 1 tab Documented by: GEORGI Enoxaparin Sodium (Lovenox) 70 mg SUBCUT Q24H [facility] Fish Oil (Fish Oil) 1 gm PO BID [facility] Last Admin: 08/22/20 08:15 Dose: 1 gm Documented by: Admin: 08/21/20 21:08 Dose: 1 gm Documented by: GEORGI Lactated Ringer's (Ringers, Lactated) 1,000 mls @ 125 mls/hr IV ASDIRECTED [facility] Last Admin: 08/22/20 08:14 Dose: 125 mls/hr Documented by: Infusion: 08/22/20 08:14 Dose: 125 mls/hr Documented by: Admin: 08/22/20 00:17 Dose: 125 mls/hr Documented by: Infusion: 08/22/20 00:11 Dose: 125 mls/hr Documented by: Admin: 08/21/20 16:11 Dose: 125 mls/hr Documented by: NICOLE Vancomycin HCl 1 gm/ Sodium (Chloride) 250 mls @ 166.667 mls/hr IV Q24H [facility] Last Admin: 08/22/20 11:41 Dose: 166.667 mls/hr Documented by: NICOLE Piperacillin Sod/Tazobactam (Sod 3.375 gm/ Sodium Chloride) 50 mls @ 100 mls/hr IV Q6H [facility] Levothyroxine Sodium (Synthroid) 50 mcg PO ACBREAKFAST [facility] Last Admin: 08/22/20 06:34 Dose: 50 mcg Documented by: CANDACE Morphine Sulfate (Morphine) 1 mg IVPUSH Q3H PRN PRN Reason: Pain (severe 7-10) Multivitamins/Minerals/Vitamin C (Tab-A-Harjeet) 1 tab PO DAILY [facility] Last Admin: 08/22/20 08:15 Dose: 1 tab Documented by: NICOLE Omeprazole (Omeprazole) 20 mg PO BIDAC [facility] Last Admin: 08/22/20 06:34 Dose: 20 mg Documented by: Admin: 08/21/20 18:27 Dose: 20 mg Documented by: NICOLE Ondansetron HCl (Zofran) 4 mg IVPUSH Q4H PRN PRN Reason: Nausea/Vomiting Prednisone (Prednisone) 5 mg PO BID [facility] Last Admin: 08/22/20 12:54 Dose: 5 mg Documented by: NICOLE Sodium Chloride (Saline Flush) 10 ml FLUSH ASDIRECTED PRN PRN Reason: Keep Vein Open Last Admin: 08/21/20 10:27 Dose: 10 ml Documented by: ISELA Sodium Chloride (Saline Flush) 2.5 ml FLUSH ASDIRECTED PRN PRN Reason: Keep Vein Open Last Admin: 08/21/20 10:26 Dose: 2.5 ml Documented by: ISELA Timolol Maleate (Timoptic 0.5% Ophth Soln) 0 ml EYEBOTH BID [facility] Last Admin: 08/22/20 08:22 Dose: 1 drop Documented by: Admin: 08/21/20 22:14 Dose: 1 drop Documented by: CANDACE Vancomycin HCl (Pharmacy To Dose - Vancomycin) 1 dose .XX ASDIRECTED [facility] Assessment/Plan Comment:: sepsis from cellulitis: see note above I performed a history and physical exam of the patient and discussed management with resident. I have reviewed the residents note and agree with documented findings and plan unless otherwise specified in my note.
[2020-08-21] MEDS: Omeprazole 20 MG Cap.CR PO SCH (18:27)
[2020-08-21] MEDS ORDERED: PETROLATUM WHITE EYEBOTH SCH (21:00)
[2020-08-21] MEDS: Budesonide/Formoterol 160-4.5 MCG/Puff 6 GM Inhaler INH SCH (21:00)
[2020-08-21] MEDS ORDERED: MINERAL OIL EYEBOTH SCH (21:00)
[2020-08-21] MEDS: Carbidopa/Levodopa 25-100 MG Tab PO SCH (21:08)
[2020-08-21] MEDS: Carboxymethylcellulose Sodium 0.5% Ophth Soln 0.4 ML UD Box of 30 EYEBOTH SCH (21:08)
[2020-08-21] MEDS: Fish Oil/Omega-3 Fatty Acids 1 Gm Cap PO SCH (21:08)
[2020-08-21] MEDS: Acetaminophen 325 MG Tab PO PRN (21:14)
[2020-08-21] MEDS: Brimonidine 0.2% Ophth Soln 5 ML Bottle EYEBOTH SCH (22:13)
[2020-08-21] MEDS: Timolol Maleate 0.5% Ophth Soln 15 ML Bottle EYEBOTH SCH (22:14)
[2020-08-22] MEDS: Lactated Ringers 1,000 ML IV SCH ×2 (00:17→08:14)
[2020-08-22] MEDS: Enoxaparin 40 MG/0.4 ML Syringe SUBCUT SCH (03:22)
[2020-08-22] MEDS: Albuterol/Ipratropium 3.0-0.5 MG/3 ML Neb Soln NEB PRN (03:27)
[2020-08-22] MEDS: Carbidopa/Levodopa 25-100 MG Tab PO SCH ×3 (05:59→21:38)
[2020-08-22] MEDS: Acetaminophen 325 MG Tab PO PRN ×2 (05:59→12:55)
[2020-08-22 06:12] LABS: CARBON DIOXIDE,CO2 25.9 mmol/L (21.0-32.0); POTASSIUM,K 4.1 mmol/L (3.5-5.1)
[2020-08-22] MEDS: Levothyroxine 50 MCG Tab PO SCH (06:34)
[2020-08-22] MEDS: Omeprazole 20 MG Cap.CR PO SCH ×2 (06:34→17:37)
[2020-08-22] MEDS: Fish Oil/Omega-3 Fatty Acids 1 Gm Cap PO SCH ×2 (08:15→21:38)
[2020-08-22] MEDS: Multivitamin Tab PO SCH (08:15)
[2020-08-22] MEDS: amLODIPine 5 MG Tab PO SCH (08:15)
[2020-08-22] MEDS: Carboxymethylcellulose Sodium 0.5% Ophth Soln 0.4 ML UD Box of 30 EYEBOTH SCH ×2 (08:17→21:38)
[2020-08-22] MEDS: Brimonidine 0.2% Ophth Soln 5 ML Bottle EYEBOTH SCH ×2 (08:21→21:38)
[2020-08-22] MEDS: Timolol Maleate 0.5% Ophth Soln 15 ML Bottle EYEBOTH SCH ×2 (08:22→21:38)
[2020-08-22] MEDS: Budesonide/Formoterol 160-4.5 MCG/Puff 6 GM Inhaler INH SCH ×2 (08:31→20:58)
[2020-08-22] MEDS ORDERED: Magnesium Sulfate/Water 2 GM/50 ML BAG IV ONE (08:36)
[2020-08-22] MEDS ORDERED: Polyethylene Glycol 3350 Powder 17 GM Packet PO ONE (10:34)
[2020-08-22] MEDS ORDERED: Lactated Ringers 1,000 ML IV SCH (12:00)
--- NOTE | 2020-08-22 12:14 | CT ---
HISTORY: Right hand swelling. Evaluate for abscess. TECHNIQUE: CT right hand and wrist with IV contrast. 75 mL Isovue 370 IV. COMPARISON: None. FINDINGS: Sensitivity for fluid collections is decreased by high image noise related to positioning limitations. Confluent infiltration of subcutaneous fat in the dorsum of the hand extending into the proximal aspects of the fingers and thumb. No definite fluid collection. 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 Periarticular soft tissue calcifications at several IP joints most prominent at the 3rd and 4th PIP joints. MCP joint space narrowing without erosions. Arthrosis throughout the wrist with joint space narrowing, subarticular sclerosis, and osteophytes. For example advanced arthritis of the 1st CMC and triscaphe joints with joint space narrowing, subarticular sclerosis, and marginal osteophytes. 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 Prominent cyst-like changes in capitate and distal pole of the scaphoid. Scapholunate interval appears widened proximally. No fracture. Small fat containing ventral hernia. IMPRESSION: 1. Severe fat infiltration in the dorsal hand and proximal digits from cellulitis or edema. No definite fluid collection. 2. 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 Differential includes erosive osteoarthritis with chondrocalcinosis, calcium pyrophosphate deposition arthropathy, and psoriatic arthritis. Gout is less likely. Please note that all CT scans at this facility use dose modulation, iterative reconstruction, and/or weight-based dosing when appropriate to reduce radiation dose to as low as reasonably achievable. Dictated by Avel Vaughan MD @ Aug 22 2020 12:13PM Signed by Dr. Avel Vaughan @ Aug 22 2020 12:13PM
[2020-08-22] MEDS: predniSONE 5 MG Tab PO SCH ×2 (12:54→21:38)
[2020-08-22] MEDS: Albuterol/Ipratropium 3.0-0.5 MG/3 ML Neb Soln NEB SCH ×3 (13:13→21:00)
--- NOTE | 2020-08-22 13:28 | PCM.HP.2 ---
H&P History of Present Illness - General Date of Service: 08/22/20 Admit Problem/Dx: Admission Diagnosis/Problem Admission Diagnosis/Problem Cellulitis and abscess of arm Right arm and leg Pain Score (Numeric/FACES): 8 - Related Data Allergies/Adverse Reactions: Allergies Allergy/AdvReac Type Severity Reaction Status Date / Time YANY Inhibitors Allergy Airway Verified 08/21/20 18:23 Tightness erythromycin base Allergy Airway Verified 08/21/20 18:23 [From Staticin] Tightness ethyl alcohol [From Staticin] Allergy Airway Verified 08/21/20 18:23 Tightness hydrochlorothiazide Allergy Airway Verified 08/21/20 18:23 Tightness latex Allergy Rash Verified 08/21/20 18:23 perfume Allergy Airway Verified 08/21/20 18:23 Tightness acrylic Allergy Airway Uncoded 08/21/20 18:23 Tightness cleaning chemicals Allergy Difficulty Uncoded 08/21/20 18:23 Breathing metal Allergy Airway Uncoded 08/21/20 18:23 Tightness polyester Allergy Airway Uncoded 08/21/20 18:23 Tightness Home Medications: Home Meds Levothyroxine [Synthroid] 50 mcg PO DAILY 02/22/14 [History] Carbidopa/Levodopa [Carbidopa-Levodopa 25-100 Tab] 25 - 100 tab PO TID 04/19/16 [History] Mouthwash-Om 1 dose PO ASDIRECTED PRN 04/19/16 [History] Multivitamin [Daily Multiple Vitamin] 1 tab PO DAILY 04/19/16 [History] Omeprazole 20 mg PO DAILY 04/19/16 [History] Ubidecarenone [Co Q-10] 1 cap PO DAILY 04/19/16 [History] predniSONE [Prednisone] 5 mg PO BID 04/19/16 [History] Acetaminophen [Tylenol] 650 mg PO ASDIRECTED PRN 12/12/18 [History] Albuterol Sulfate [Proair Respiclick] 2 puff INH Q6H PRN 12/12/18 [History] Albuterol [Proventil] 2.5 mg INH Q4HRRT 12/12/18 [History] Better Woman 1 tab PO DAILY 12/12/18 [History] Brimonidine [Alphagan 0.2% Ophth Soln] 1 drop EYEBOTH BID 12/12/18 [History] Budesonide/Formoterol [Symbicort 160-4.5 MCG] 2 puff INH BID 12/12/18 [History] Carboxymethylcellulose Sodium [Refresh Tears] 1 drop EYEBOTH DAILY 12/12/18 [History] Fish Oil/[place]-3 Fatty Acids [Fish Oil 1,000 MG] 1,000 mg PO BID 12/12/18 [History] Mineral Oil/Petrolatum,White [Refresh P.M.] 1 applic EYEBOTH BEDTIME 12/12/18 [History] amLODIPine [Norvasc] 5 mg PO DAILY 12/12/18 [History] timoloL maleate [Timoptic 0.5% Ophth Soln] 1 drop EYEBOTH BID 12/12/18 [History] Codeine Phosphate/Guaifenesin [Guaifen-Codeine 100-10 mg/5 ml] 1 tsp PO Q4HR PRN 08/21/20 [History] Magnesium Hydroxide [Milk of Magnesia] 2 tsp PO DAILY PRN 08/21/20 [History] Melatonin/Pyridoxine HCl (B6) [Melatonin 5 mg Tablet] 1 each PO Q4HR PRN 08/21/20 [History] Past Medical History HEENT History: Reports: Allergic Rhinitis, Cataract, Glaucoma, Hard of Hearing, Impaired Vision, Other (See Below) Other HEENT History: wears glasses, hearing aids and dentures-partial top and bottom Cardiovascular History: Reports: Hypertension Respiratory History: Reports: Asthma Gastrointestinal History: Reports: GERD Genitourinary History: Reports: None 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: Musculoskeletal History: Reports: Arthritis, Osteoarthritis, RA, Other (See Below) Other Musculoskeletal History: bursitis Neurological History: Reports: Vertigo Other Neuro History: essential tremors Psychiatric History: Reports: Anxiety Endocrine/Metabolic History: Reports: Hypothyroidism Hematologic History: Reports: None Immunologic History: Reports: None Oncologic (Cancer) History: Reports: None Dermatologic History: Reports: Other (See Below) 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 - Infectious Disease History Infectious Disease History: Reports: None - Past Surgical History Head Surgeries/Procedures: Reports: None HEENT Surgical History: Reports: Cataract Surgery, Tonsillectomy Cardiovascular Surgical History: Reports: None Respiratory Surgical History: Reports: None GI Surgical History: Reports: Appendectomy Female Surgical History: Reports: Kidney stone extraction Endocrine Surgical History: Reports: None Neurological Surgical History: Reports: None Musculoskeletal Surgical History: Reports: Hip Replacement, Other (See Below) Other Musculoskeletal Surgeries/Procedures:: right hip Oncologic Surgical History: Reports: None Dermatological Surgical History: Reports: None Social & Family History - Family History Family Medical History: No Pertinent Family History - Caffeine Use Caffeine Use: Reports: Coffee, Soda - Recreational Drug Use Recreational Drug Use: No - Living Situation & Occupation Living situation: Reports: Occupation: Retired Exam - Vital Signs Vital Signs: Last Vital Signs Temp 36.4 C 08/22/20 12:32 Pulse 76 08/22/20 12:32 Resp 16 08/22/20 12:32 BP 118/71 08/22/20 12:32 Pulse Ox 95 08/22/20 12:32 Weight: 66.224 kg - Patient Data Lab Results Last 24 hrs: Laboratory Results - last 24 hr 08/21/20 08/22/20 08/22/20 Range/Units 09:55 05:30 05:30 WBC 11.88 H (4.0-11.0) K/uL RBC 3.61 L (4.30-5.90) M/uL Hgb 11.8 L (12.0-16.0) g/dL Hct 37.6 (36.0-46.0) % MCV 104.2 H (80.0-98.0) fL MCH 32.7 H (27.0-32.0) pg MCHC 31.4 (31.0-37.0) g/dL RDW Std Deviation 57.5 (28.0-62.0) fl RDW Coeff of Sánchez 15 (11.0-15.0) % Plt Count 174 (150-400) K/uL MPV 9.50 (7.40-12.00) fL Neut % (Auto) 75.3 (48.0-80.0) % Lymph % (Auto) 15.7 L (16.0-40.0) % [place] % (Auto) 8.3 (0.0-15.0) % Eos % (Auto) 0.6 (0.0-7.0) % Baso % (Auto) 0.1 (0.0-1.5) % Neut # (Auto) 8.9 H (1.4-5.7) K/uL Lymph # (Auto) 1.9 (0.6-2.4) K/uL [place] # (Auto) 1.0 H (0.0-0.8) K/uL Eos # (Auto) 0.1 (0.0-0.7) K/uL Baso # (Auto) 0.0 (0.0-0.1) K/uL Nucleated RBC % 0.0 /100WBC Nucleated RBCs # 0 K/uL Sodium 135 L (136-145) mmol/L Potassium 4.1 (3.5-5.1) mmol/L Chloride 102 (98-107) mmol/L Carbon Dioxide 25.9 (21.0-32.0) mmol/L BUN 27 H (7.0-18.0) mg/dL Creatinine 1.0 (0.6-1.0) mg/dL Est Cr Clr Drug Dosing 27.93 mL/min Estimated GFR (MDRD) 52.3 ml/min Glucose 88 (74-106) mg/dL Calcium 9.6 (8.5-10.1) mg/dL Phosphorus 2.7 2.8 (2.6-4.7) mg/dL Magnesium 2.0 1.6 L (1.8-2.4) mg/dL Result Diagrams: 08/22/20 05:30 08/22/20 05:30 Nikolai Results Last 24 hrs: Microbiology 08/21/20 10:24 Aerobic Blood Culture - Preliminary Blood - Venous - Lab Draw NO GROWTH AFTER 1 DAY Anaerobic Blood Culture - Final 08/21/20 09:55 Aerobic Blood Culture - Preliminary Blood - Venous NO GROWTH AFTER 1 DAY Anaerobic Blood Culture - Preliminary NO GROWTH AFTER 1 DAY Sepsis Event Note - Evaluation Sepsis Screening Result: No Definite Risk - Focused Exam Vital Signs: Vital Signs Temp Pulse Resp BP BP Pulse Ox 08/22/20 12:32 36.4 C 76 16 118/71 95 08/22/20 08:15 112/64 08/22/20 07:34 36.4 C 109 H 20 112/64 93 L 08/22/20 04:00 36.8 C 110 H 18 137/73 92 L Orders Last 24hrs: Active Orders 24 hr Category Date Time Status Admission Status [Patient Status] [ADT] Stat ADT 08/21/20 13:31 Active Cardiac Monitoring [RC] . DIRECTED Care 08/21/20 13:31 Active Oxygen Therapy [RC] PRN Care 08/21/20 15:37 Active RT Aerosol Therapy [RC] ASDIRECTED Care 08/21/20 15:46 Active RT Post Treatment Assessment [RC] Click to Edit Care 08/21/20 15:58 Active RT Pre-Treatment Assessment [RC] Click to Edit Care 08/21/20 15:58 Active Telemetry Monitoring [Cardiac Monitoring] [RC] Q8H Care 08/21/20 14:05 Active VTE/DVT Education [RC] PER UNIT ROUTINE Care 08/21/20 15:37 Active Vital Signs [RC] Q4H Care 08/21/20 15:37 Active Heart Healthy Diet [DIET] Diet 08/21/20 Dinner Active CULTURE WOUND [RM] Routine Lab 08/21/20 16:50 Received VANCOMYCIN TROUGH [CHEM] Timed Lab 08/25/20 10:00 Ordered Acetaminophen [TylenoL] Med 08/21/20 15:37 Active 650 mg PO Q4H PRN Albuterol/Ipratropium [DuoNeb 3.0-0.5 MG/3 ML] Med 08/22/20 14:00 Active 3 ml NEB Q4HRRT Brimonidine [Alphagan 0.2% Ophth Soln] Med 08/21/20 21:00 Active 0 ml EYEBOTH BID Budesonide/Formoterol [Symbicort 160-4.5 MCG] Med 08/21/20 21:00 Active 0 gm INH BID Carbidopa/Levodopa [Sinemet 25-100 mg] Med 08/21/20 22:00 Active 1 tab PO TID Carboxymethylcellulose Sodium [Refresh Plus 0.5%] Med 08/21/20 21:00 Active 0 each EYEBOTH BID Enoxaparin [Lovenox] Med 08/22/20 18:30 Active 70 mg SUBCUT Q24H Fish Oil/[place]-3 Fatty Acids [Fish Oil] Med 08/21/20 21:00 Active 1 gm PO BID Lactated Ringers [Ringers, Lactated] 1,000 ml Med 08/21/20 15:45 Active IV ASDIRECTED Levothyroxine [Synthroid] Med 08/22/20 07:30 Active 50 mcg PO ACBREAKFAST Morphine Med 08/21/20 15:58 Active 1 mg IVPUSH Q3H PRN Multivitamins [Tab-A-Harjeet] Med 08/22/20 09:00 Active 1 tab PO DAILY Omeprazole Med 08/21/20 17:00 Active 20 mg PO BIDAC Ondansetron [Zofran] Med 08/21/20 15:37 Active 4 mg IVPUSH Q4H PRN Pharmacy to Dose - Vancomycin Med 08/21/20 16:00 Active 1 dose .XX ASDIRECTED Piperacillin/Tazobactam [Piperacil-Tazobact] 3.375 gm Med 08/22/20 13:30 Ordered Sodium Chloride 0.9% [Normal Saline] 50 ml IV Q6H Vancomycin [Vancocin] 1 gm Med 08/22/20 11:30 Active Sodium Chloride 0.9% [Normal Saline (AdvBag)] 250 ml IV Q24H amLODIPine [Norvasc] Med 08/22/20 09:00 Active 5 mg PO DAILY predniSONE Med 08/22/20 12:30 Active 5 mg PO BID timoloL maleate [Timoptic 0.5% [facility] Soln] Med 08/21/20 21:00 Active 0 ml EYEBOTH BID Resuscitation Status Routine Resus Stat 08/21/20 15:51 Ordered Medication Orders Acetaminophen (Tylenol) 650 mg PO Q4H PRN PRN Reason: Pain (Mild 1-3)/fever Last Admin: 08/22/20 12:55 Dose: 650 mg Documented by: Admin: 08/22/20 05:59 Dose: 650 mg Documented by: Admin: 08/21/20 21:14 Dose: 650 mg Documented by: GEORGI Albuterol/Ipratropium (Duoneb 3.0-0.5 Mg/3 Ml) 3 ml NEB Q4HRRT [facility] Last Admin: 08/22/20 13:13 Dose: 3 ml Documented by: SARAH Amlodipine Besylate (Norvasc) 5 mg PO DAILY [facility] Last Admin: 08/22/20 08:15 Dose: 5 mg Documented by: NICOLE Artificial Tears (Refresh Plus 0.5%) 0 each EYEBOTH BID [facility] Last Admin: 08/22/20 08:17 Dose: 1 drop Documented by: Admin: 08/21/20 21:08 Dose: 1 drop Documented by: GEORGI Brimonidine Tartrate (Alphagan 0.2% Ophth Soln) 0 ml EYEBOTH BID [facility] Last Admin: 08/22/20 08:21 Dose: 1 drop Documented by: Admin: 08/21/20 22:13 Dose: 1 drop Documented by: CANDACE Budesonide/Formoterol Fumarate (Symbicort 160-4.5 Mcg) 0 gm INH BID [facility] Last Admin: 08/22/20 08:31 Dose: 2 puff Documented by: Admin: 08/21/20 21:00 Dose: Not Given Documented by: CANDACE Carbidopa/Levodopa (Sinemet 25-100 Mg) 1 tab PO TID [facility] Last Admin: 08/22/20 05:59 Dose: 1 tab Documented by: Admin: 08/21/20 21:08 Dose: 1 tab Documented by: GEORGI Enoxaparin Sodium (Lovenox) 70 mg SUBCUT Q24H [facility] Fish Oil (Fish Oil) 1 gm PO BID [facility] Last Admin: 08/22/20 08:15 Dose: 1 gm Documented by: Admin: 08/21/20 21:08 Dose: 1 gm Documented by: GEORGI Lactated Ringer's (Ringers, Lactated) 1,000 mls @ 125 mls/hr IV ASDIRECTED [facility] Last Admin: 08/22/20 08:14 Dose: 125 mls/hr Documented by: Infusion: 08/22/20 08:14 Dose: 125 mls/hr Documented by: Admin: 08/22/20 00:17 Dose: 125 mls/hr Documented by: Infusion: 08/22/20 00:11 Dose: 125 mls/hr Documented by: Admin: 08/21/20 16:11 Dose: 125 mls/hr Documented by: NICOLE Vancomycin HCl 1 gm/ Sodium (Chloride) 250 mls @ 166.667 mls/hr IV Q24H [facility] Last Admin: 08/22/20 11:41 Dose: 166.667 mls/hr Documented by: NICOLE Piperacillin Sod/Tazobactam (Sod 3.375 gm/ Sodium Chloride) 50 mls @ 100 mls/hr IV Q6H [facility] Levothyroxine Sodium (Synthroid) 50 mcg PO ACBREAKFAST [facility] Last Admin: 08/22/20 06:34 Dose: 50 mcg Documented by: CANDACE Morphine Sulfate (Morphine) 1 mg IVPUSH Q3H PRN PRN Reason: Pain (severe 7-10) Multivitamins/Minerals/Vitamin C (Tab-A-Harjeet) 1 tab PO DAILY [facility] Last Admin: 08/22/20 08:15 Dose: 1 tab Documented by: NICOLE Omeprazole (Omeprazole) 20 mg PO BIDAC [facility] Last Admin: 08/22/20 06:34 Dose: 20 mg Documented by: Admin: 08/21/20 18:27 Dose: 20 mg Documented by: NICOLE Ondansetron HCl (Zofran) 4 mg IVPUSH Q4H PRN PRN Reason: Nausea/Vomiting Prednisone (Prednisone) 5 mg PO BID [facility] Last Admin: 08/22/20 12:54 Dose: 5 mg Documented by: NICOLE Sodium Chloride (Saline Flush) 10 ml FLUSH ASDIRECTED PRN PRN Reason: Keep Vein Open Last Admin: 08/21/20 10:27 Dose: 10 ml Documented by: ISELA Sodium Chloride (Saline Flush) 2.5 ml FLUSH ASDIRECTED PRN PRN Reason: Keep Vein Open Last Admin: 08/21/20 10:26 Dose: 2.5 ml Documented by: ISELA Timolol Maleate (Timoptic 0.5% Oph Soln) 0 ml EYEBOTH BID [facility] Last Admin: 08/22/20 08:22 Dose: 1 drop Documented by: Admin: 08/21/20 22:14 Dose: 1 drop Documented by: CANDACE Vancomycin HCl (Pharmacy To Dose - Vancomycin) 1 dose .XX ASDIRECTED [facility] Assessment/Plan Comment:: Patient is a 89-year-old female admitted for right arm cellulitis and 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 1. Cellulitis: Leukocytosis secondary to above, 13.4, no fever, no chills. Patient is ta chycardic with heart rate of 116 and hypertensive with blood pressure 145/76, normal lactate 1.0. Started patient on empiric antibiotics vancomycin, blood cultures and wound culture pending, will narrow coverage based on cultures. 1 mg morphine every 3 hours as needed for pain Tylenol for fever as needed Zofran for nausea Telemetry 2. Constipation: MiraLAX daily Docusate twice daily DVT prophylaxis 40 mg Lovenox twice daily, GI prophylaxis 40 pantoprazole daily, up with assistance.
--- NOTE | 2020-08-22 14:02 | PCM.PN ---
- General Info Date of Service: 08/22/20 Subjective Update: feels better, arm redness is better, but hand is still swollen and tender Functional Status: Reports: Pain Controlled, Tolerating Diet, Ambulating - Review of Systems General: Reports: Weakness. Denies: Fever, Fatigue, Malaise Pulmonary: Denies: Shortness of Breath Cardiovascular: Denies: Chest Pain, Palpitations, Dyspnea on Exertion Gastrointestinal: Denies: Abdominal Pain, Constipation, Decreased Appetite Genitourinary: Denies: Dysuria, Frequency, Burning Musculoskeletal: Denies: Neck Pain, Shoulder Pain, Arm Pain Skin: Denies: Cyanosis, Jaundice, Mottled Neurological: Denies: Confusion, Dizziness, Headache - Patient Data Vitals - Most Recent: Last Vital Signs Temp 36.4 C 08/22/20 12:32 Pulse 76 08/22/20 12:32 Resp 16 08/22/20 12:32 BP 118/71 08/22/20 12:32 Pulse Ox 95 08/22/20 12:32 Weight - Most Recent: 66.224 kg I&O - Last 24 Hours: Intake & Output 08/21/20 08/22/20 08/22/20 22:59 06:59 14:59 Intake Total 1584 Output Total 130 Balance 1454 Lab Results Last 24 Hours: Laboratory Results - last 24 hr 08/21/20 08/22/20 08/22/20 Range/Units 09:55 05:30 05:30 WBC 11.88 H (4.0-11.0) K/uL RBC 3.61 L (4.30-5.90) M/uL Hgb 11.8 L (12.0-16.0) g/dL Hct 37.6 (36.0-46.0) % MCV 104.2 H (80.0-98.0) fL MCH 32.7 H (27.0-32.0) pg MCHC 31.4 (31.0-37.0) g/dL RDW Std Deviation 57.5 (28.0-62.0) fl RDW Coeff of Sánchez 15 (11.0-15.0) % Plt Count 174 (150-400) K/uL MPV 9.50 (7.40-12.00) fL Neut % (Auto) 75.3 (48.0-80.0) % Lymph % (Auto) 15.7 L (16.0-40.0) % Maury % (Auto) 8.3 (0.0-15.0) % Eos % (Auto) 0.6 (0.0-7.0) % Baso % (Auto) 0.1 (0.0-1.5) % Neut # (Auto) 8.9 H (1.4-5.7) K/uL Lymph # (Auto) 1.9 (0.6-2.4) K/uL Maury # (Auto) 1.0 H (0.0-0.8) K/uL Eos # (Auto) 0.1 (0.0-0.7) K/uL Baso # (Auto) 0.0 (0.0-0.1) K/uL Nucleated RBC % 0.0 /100WBC Nucleated RBCs # 0 K/uL Sodium 135 L (136-145) mmol/L Potassium 4.1 (3.5-5.1) mmol/L Chloride 102 (98-107) mmol/L Carbon Dioxide 25.9 (21.0-32.0) mmol/L BUN 27 H (7.0-18.0) mg/dL Creatinine 1.0 (0.6-1.0) mg/dL Est Cr Clr Drug Dosing 27.93 mL/min Estimated GFR (MDRD) 52.3 ml/min Glucose 88 (74-106) mg/dL Calcium 9.6 (8.5-10.1) mg/dL Phosphorus 2.7 2.8 (2.6-4.7) mg/dL Magnesium 2.0 1.6 L (1.8-2.4) mg/dL Nikolai Results Last 24 Hours: Microbiology 08/21/20 10:24 Aerobic Blood Culture - Preliminary Blood - Venous - Lab Draw NO GROWTH AFTER 1 DAY Anaerobic Blood Culture - Final 08/21/20 09:55 Aerobic Blood Culture - Preliminary Blood - Venous NO GROWTH AFTER 1 DAY Anaerobic Blood Culture - Preliminary NO GROWTH AFTER 1 DAY Med Orders - Current: Current Medications Acetaminophen (Tylenol) 650 mg PO Q4H PRN PRN Reason: Pain (Mild 1-3)/fever Last Admin: 08/22/20 12:55 Dose: 650 mg Documented by: Albuterol/Ipratropium (Duoneb 3.0-0.5 Mg/3 Ml) 3 ml NEB Q4HRRT [facility] Last Admin: 08/22/20 13:13 Dose: 3 ml Documented by: Amlodipine Besylate (Norvasc) 5 mg PO DAILY [facility] Last Admin: 08/22/20 08:15 Dose: 5 mg Documented by: Artificial Tears (Refresh Plus 0.5%) 0 each EYEBOTH BID [facility] Last Admin: 08/22/20 08:17 Dose: 1 drop Documented by: Brimonidine Tartrate (Alphagan 0.2% Ophth Soln) 0 ml EYEBOTH BID [facility] Last Admin: 08/22/20 08:21 Dose: 1 drop Documented by: Budesonide/Formoterol Fumarate (Symbicort 160-4.5 Mcg) 0 gm INH BID [facility] Last Admin: 08/22/20 08:31 Dose: 2 puff Documented by: Carbidopa/Levodopa (Sinemet 25-100 Mg) 1 tab PO TID [facility] Last Admin: 08/22/20 05:59 Dose: 1 tab Documented by: Enoxaparin Sodium (Lovenox) 70 mg SUBCUT Q24H [facility] Fish Oil (Fish Oil) 1 gm PO BID [facility] Last Admin: 08/22/20 08:15 Dose: 1 gm Documented by: Lactated Ringer's (Ringers, Lactated) 1,000 mls @ 125 mls/hr IV ASDIRECTED [facility] Last Admin: 08/22/20 08:14 Dose: 125 mls/hr Documented by: Vancomycin HCl 1 gm/ Sodium (Chloride) 250 mls @ 166.667 mls/hr IV Q24H [facility] Last Admin: 08/22/20 11:41 Dose: 166.667 mls/hr Documented by: Piperacillin Sod/Tazobactam (Sod 3.375 gm/ Sodium Chloride) 50 mls @ 100 mls/hr IV Q6H [facility] Levothyroxine Sodium (Synthroid) 50 mcg PO ACBREAKFAST [facility] Last Admin: 08/22/20 06:34 Dose: 50 mcg Documented by: Morphine Sulfate (Morphine) 1 mg IVPUSH Q3H PRN PRN Reason: Pain (severe 7-10) Multivitamins/Minerals/Vitamin C (Tab-A-Harjeet) 1 tab PO DAILY [facility] Last Admin: 08/22/20 08:15 Dose: 1 tab Documented by: Omeprazole (Omeprazole) 20 mg PO BIDAC [facility] Last Admin: 08/22/20 06:34 Dose: 20 mg Documented by: Ondansetron HCl (Zofran) 4 mg IVPUSH Q4H PRN PRN Reason: Nausea/Vomiting Prednisone (Prednisone) 5 mg PO BID [facility] Last Admin: 08/22/20 12:54 Dose: 5 mg Documented by: Sodium Chloride (Saline Flush) 10 ml FLUSH ASDIRECTED PRN PRN Reason: Keep Vein Open Last Admin: 08/21/20 10:27 Dose: 10 ml Documented by: Sodium Chloride (Saline Flush) 2.5 ml FLUSH ASDIRECTED PRN PRN Reason: Keep Vein Open Last Admin: 08/21/20 10:26 Dose: 2.5 ml Documented by: Timolol Maleate (Timoptic 0.5% Oph Soln) 0 ml EYEBOTH BID [facility] Last Admin: 08/22/20 08:22 Dose: 1 drop Documented by: Vancomycin HCl (Pharmacy To Dose - Vancomycin) 1 dose .XX ASDIRECTED [facility] Discontinued Medications Albuterol/Ipratropium (Duoneb 3.0-0.5 Mg/3 Ml) 3 ml NEB Q4HRRT PRN PRN Reason: Shortness Of Breath/wheezing Last Admin: 08/22/20 03:27 Dose: 3 ml Documented by: Enoxaparin Sodium (Lovenox) 40 mg SUBCUT Q12H [facility] Last Admin: 08/22/20 03:22 Dose: 40 mg Documented by: Vancomycin HCl 1.1 gm/ (Dextrose/Water) 250 mls @ 167 mls/hr IV ONETIME ONE Stop: 08/21/20 11:35 Last Admin: 08/21/20 10:38 Dose: Not Given Documented by: Ceftriaxone Sodium 1 gm/ (Sodium Chloride) 100 mls @ 200 mls/hr IV STAT ONE Stop: 08/21/20 10:35 Last Admin: 08/21/20 10:27 Dose: Not Given Documented by: Sodium Chloride (Normal Saline) 1,000 mls @ 999 mls/hr IV BOLUS ONE; Protocol Stop: 08/21/20 11:06 Last Admin: 08/21/20 10:24 Dose: 999 mls/hr Documented by: Ceftriaxone Sodium/Dextrose 1 (gm/ Premix) 50 mls @ 100 mls/hr IV STAT ONE Stop: 08/21/20 10:59 Last Admin: 08/21/20 10:25 Dose: 100 mls/hr Documented by: Vancomycin HCl 1.25 gm/ Premix 250 mls @ 167.007 mls/hr IV ONETIME ONE Stop: 08/21/20 11:59 Last Admin: 08/21/20 10:37 Dose: 167.007 mls/hr Documented by: Vancomycin HCl 1 gm/ Sodium (Chloride) 250 mls @ 166.667 mls/hr IV Q24H [facility] Last Admin: 08/22/20 11:46 Dose: Not Given Documented by: Magnesium Sulfate (Magnesium Sulfate In Water Premix) 2 gm in 50 mls @ 50 ml s/hr IV ONETIME ONE Stop: 08/22/20 09:35 Last Admin: 08/22/20 08:43 Dose: 50 mls/hr Documented by: Lactated Ringer's (Ringers, Lactated) 1,000 mls @ 999 mls/hr IV BOLUS [facility] Stop: 08/22/20 13:01 Last Admin: 08/22/20 12:55 Dose: 999 mls/hr Documented by: Ketorolac Tromethamine (Toradol) 15 mg IVPUSH ONETIME STA Stop: 08/21/20 11:25 Last Admin: 08/21/20 11:32 Dose: 15 mg Documented by: Ketorolac Tromethamine (Toradol) 15 mg IM ONETIME ONE Stop: 08/21/20 14:17 Last Admin: 08/21/20 14:37 Dose: 15 mg Documented by: Morphine Sulfate (Morphine) 2 mg IVPUSH ONETIME ONE Stop: 08/21/20 10:35 Last Admin: 08/21/20 10:37 Dose: 2 mg Documented by: Morphine Sulfate (Morphine) Confirm Administered Dose 2 mg .ROUTE .STK-MED ONE Stop: 08/21/20 10:36 Last Admin: 08/21/20 10:38 Dose: Not Given Documented by: Morphine Sulfate (Morphine) 2 mg IVPUSH ONETIME ONE Stop: 08/21/20 11:01 Last Admin: 08/21/20 11:06 Dose: 2 mg Documented by: Non-Formulary Medication (Mineral Oil/Petrolatum,White [Refresh P.M.]) 1 applic EYEBOTH BEDTIME [facility] Non-Formulary Medication (Mouthwash-Om) 1 dose PO ASDIRECTED PRN PRN Reason: Other Polyethylene Glycol (Miralax) 17 gm PO ONETIME ONE Stop: 08/22/20 10:35 Last Admin: 08/22/20 11:41 Dose: 17 gm Documented by: - Exam General: Alert, Oriented, Cooperative Lungs: Clear to Auscultation, Normal Respiratory Effort Cardiovascular: Regular Rate, Regular Rhythm GI/Abdominal Exam: Normal Bowel Sounds, Non-Tender Extremities: Increased Warmth (right hand), Redness (right hand). No: Non- Tender Sepsis Event Note - Evaluation Sepsis Screening Result: No Definite Risk - Focused Exam Vital Signs: Vital Signs Temp Pulse Resp BP BP Pulse Ox 08/22/20 12:32 36.4 C 76 16 118/71 95 08/22/20 08:15 112/64 08/22/20 07:34 36.4 C 109 H 20 112/64 93 L 08/22/20 04:00 36.8 C 110 H 18 137/73 92 L - Problem List Review Problem List Initiated/Reviewed/Updated: Yes - My Orders Last 24 Hours: My Active Orders 08/21/20 14:05 Telemetry Monitoring [Cardiac Monitoring] [RC] Q8H 08/21/20 15:37 Oxygen Therapy [RC] PRN VTE/DVT Education [RC] PER UNIT ROUTINE Vital Signs [RC] Q4H Acetaminophen [TylenoL] 650 mg PO Q4H PRN Ondansetron [Zofran] 4 mg IVPUSH Q4H PRN 08/21/20 15:45 Lactated Ringers [Ringers, Lactated] 1,000 ml IV ASDIRECTED 08/21/20 15:46 RT Aerosol Therapy [RC] ASDIRECTED 08/21/20 15:51 Resuscitation Status Routine 08/21/20 15:58 RT Post Treatment Assessment [RC] Click to Edit RT Pre-Treatment Assessment [RC] Click to Edit Morphine 1 mg IVPUSH Q3H PRN 08/21/20 Dinner Heart Healthy Diet [DIET] Pharmacy to Dose - Vancomycin 1 dose .XX ASDIRECTED 08/21/20 17:00 Omeprazole 20 mg PO BIDAC 08/21/20 21:00 Brimonidine [Alphagan 0.2% Ophth Soln] 0 ml EYEBOTH BID Budesonide/Formoterol [Symbicort 160-4.5 MCG] 0 gm INH BID Carboxymethylcellulose Sodium [Refresh Plus 0.5%] 0 each EYEBOTH BID Fish Oil/Rumney-3 Fatty Acids [Fish Oil] 1 gm PO BID timoloL maleate [Timoptic 0.5% Ophth Soln] 0 ml EYEBOTH BID 08/21/20 22:00 Carbidopa/Levodopa [Sinemet 25-100 mg] 1 tab PO TID 08/22/20 07:30 Levothyroxine [Synthroid] 50 mcg PO ACBREAKFAST 08/22/20 09:00 Multivitamins [Tab-A-Harjeet] 1 tab PO DAILY amLODIPine [Norvasc] 5 mg PO DAILY 08/22/20 11:30 Vancomycin [Vancocin] 1 gm Sodium Chloride 0.9% [Normal Saline (AdvBag)] 250 ml IV Q24H 08/22/20 13:30 Piperacillin/Tazobactam [Piperacil-Tazobact] 3.375 gm Sodium Chloride 0.9% [Normal Saline] 50 ml IV Q6H - Plan Plan:: Patient is a 89-year-old female admitted for right arm cellulitis and 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 1. Cellulitis: Leukocytosis trending down Started patient on empiric antibiotics vancomycin, add zosyn due to concern of gram negative/pseudomonas , blood cultures and wound culture pending, will narrow coverage based on cultures. 1 mg morphine every 3 hours as needed for pain Tylenol for fever as needed Zofran for nausea Telemetry 2. Constipation: MiraLAX daily Docusate twice daily DVT prophylaxis 40 mg Lovenox twice daily, GI prophylaxis 40 pantoprazole daily, up with assistance.
[2020-08-22] MEDS: Piperacillin/Tazobactam 3.375 GM in Sodium Chloride 0.9% 50 ML IV SCH ×2 (14:41→18:37)
[2020-08-22] MEDS: Enoxaparin 100 MG/1 ML Syringe SUBCUT SCH (17:37)
[2020-08-23] MEDS: Acetaminophen 325 MG Tab PO PRN ×4 (00:08→23:37)
[2020-08-23] MEDS: Piperacillin/Tazobactam 3.375 GM in Sodium Chloride 0.9% 50 ML IV SCH ×4 (01:13→18:39)
[2020-08-23] MEDS: Albuterol/Ipratropium 3.0-0.5 MG/3 ML Neb Soln NEB SCH ×6 (02:36→21:09)
[2020-08-23 06:42] LABS: CARBON DIOXIDE,CO2 24.3 mmol/L (21.0-32.0); POTASSIUM,K 4.1 mmol/L (3.5-5.1)
[2020-08-23] MEDS: Omeprazole 20 MG Cap.CR PO SCH ×2 (06:56→16:29)
[2020-08-23] MEDS: Carbidopa/Levodopa 25-100 MG Tab PO SCH ×3 (06:56→23:37)
[2020-08-23] MEDS: Levothyroxine 50 MCG Tab PO SCH (06:56)
[2020-08-23] MEDS: Multivitamin Tab PO SCH (09:23)
[2020-08-23] MEDS: predniSONE 5 MG Tab PO SCH ×2 (09:23→20:20)
[2020-08-23] MEDS: Fish Oil/Omega-3 Fatty Acids 1 Gm Cap PO SCH ×2 (09:23→20:20)
[2020-08-23] MEDS: Carboxymethylcellulose Sodium 0.5% Ophth Soln 0.4 ML UD Box of 30 EYEBOTH SCH ×2 (09:24→20:21)
[2020-08-23] MEDS: Timolol Maleate 0.5% Ophth Soln 15 ML Bottle EYEBOTH SCH ×2 (09:24→20:21)
[2020-08-23] MEDS: amLODIPine 5 MG Tab PO SCH (09:25)
[2020-08-23] MEDS: Brimonidine 0.2% Ophth Soln 5 ML Bottle EYEBOTH SCH ×2 (09:25→20:21)
[2020-08-23] MEDS: Docusate Sodium 100 MG Cap PO PRN (09:39)
[2020-08-23] MEDS: Budesonide/Formoterol 160-4.5 MCG/Puff 6 GM Inhaler INH SCH ×2 (09:41→20:22)
[2020-08-23] MEDS: Lactated Ringers 1,000 ML IV SCH (15:22)
--- NOTE | 2020-08-23 17:36 | PCM.PN ---
- General Info Date of Service: 08/23/20 Subjective Update: Patient is an 82-year-old female admitted for right hand cellulitis and right lower extremity swelling with chronic tibial vein clot. There were no overnight events, this morning feels better, erythema has improved, but still remains swollen and red. Pain is well controlled, patient is tolerating p.o. diet. Denies any fever, chills, shortness of breath. Functional Status: Reports: Pain Controlled, Tolerating Diet - Review of Systems General: Reports: No Symptoms HEENT: Reports: No Symptoms Pulmonary: Reports: No Symptoms Cardiovascular: Reports: No Symptoms Gastrointestinal: Reports: No Symptoms Genitourinary: Reports: No Symptoms Musculoskeletal: Reports: No Symptoms Skin: Reports: No Symptoms Neurological: Reports: No Symptoms Psychiatric: Reports: No Symptoms - Patient Data Vitals - Most Recent: Last Vital Signs Temp 96.8 F L 08/23/20 16:00 Pulse 107 H 08/23/20 16:00 Resp 20 08/23/20 16:00 BP 140/69 08/23/20 16:00 Pulse Ox 95 08/23/20 16:00 Weight - Most Recent: 146 lb I&O - Last 24 Hours: Intake & Output 08/23/20 08/23/20 08/23/20 06:59 14:59 22:59 Intake Total 500 1377 Output Total 550 350 Balance -50 1027 Lab Results Last 24 Hours: Laboratory Results - last 24 hr 08/23/20 08/23/20 Range/Units 05:25 05:25 WBC 9.60 (4.0-11.0) K/uL RBC 3.44 L (4.30-5.90) M/uL Hgb 11.1 L (12.0-16.0) g/dL Hct 35.3 L (36.0-46.0) % MCV 102.6 H (80.0-98.0) fL MCH 32.3 H (27.0-32.0) pg MCHC 31.4 (31.0-37.0) g/dL RDW Std Deviation 55.5 (28.0-62.0) fl RDW Coeff of Sánchez 15 (11.0-15.0) % Plt Count 184 (150-400) K/uL MPV 9.60 (7.40-12.00) fL Neut % (Auto) 83.6 H (48.0-80.0) % Lymph % (Auto) 10.5 L (16.0-40.0) % Morrow % (Auto) 5.8 (0.0-15.0) % Eos % (Auto) 0.1 (0.0-7.0) % Baso % (Auto) 0.0 (0.0-1.5) % Neut # (Auto) 8.0 H (1.4-5.7) K/uL Lymph # (Auto) 1.0 (0.6-2.4) K/uL Morrow # (Auto) 0.6 (0.0-0.8) K/uL Eos # (Auto) 0.0 (0.0-0.7) K/uL Baso # (Auto) 0.0 (0.0-0.1) K/uL Nucleated RBC % 0.0 /100WBC Nucleated RBCs # 0 K/uL Sodium 136 (136-145) mmol/L Potassium 4.1 (3.5-5.1) mmol/L Chloride 105 (98-107) mmol/L Carbon Dioxide 24.3 (21.0-32.0) mmol/L BUN 28 H (7.0-18.0) mg/dL Creatinine 1.0 (0.6-1.0) mg/dL Est Cr Clr Drug Dosing 27.93 mL/min Estimated GFR (MDRD) 52.3 ml/min Glucose 124 H (74-106) mg/dL Calcium 9.1 (8.5-10.1) mg/dL Phosphorus 2.9 (2.6-4.7) mg/dL Magnesium 2.2 (1.8-2.4) mg/dL Nikolai Results Last 24 Hours: Microbiology 08/21/20 10:24 Aerobic Blood Culture - Preliminary Blood - Venous - Lab Draw NO GROWTH AFTER 2 DAYS Anaerobic Blood Culture - Final 08/21/20 09:55 Aerobic Blood Culture - Preliminary Blood - Venous NO GROWTH AFTER 2 DAYS Anaerobic Blood Culture - Preliminary NO GROWTH AFTER 2 DAYS 08/21/20 16:50 Wound Culture - Final Hand, Right Staphylococcus Aureus Med Orders - Current: Current Medications Acetaminophen (Tylenol) 650 mg PO Q4H PRN PRN Reason: Pain (Mild 1-3)/fever Last Admin: 08/23/20 09:40 Dose: 650 mg Documented by: Albuterol/Ipratropium (Duoneb 3.0-0.5 Mg/3 Ml) 3 ml NEB Q4HRRT [facility] Last Admin: 08/23/20 17:15 Dose: 3 ml Documented by: Amlodipine Besylate (Norvasc) 5 mg PO DAILY [facility] Last Admin: 08/23/20 09:25 Dose: 5 mg Documented by: Artificial Tears (Refresh Plus 0.5%) 0 each EYEBOTH BID [facility] Last Admin: 08/23/20 09:24 Dose: 1 drop Documented by: Brimonidine Tartrate (Alphagan 0.2% Oph Soln) 0 ml EYEBOTH BID [facility] Last Admin: 08/23/20 09:25 Dose: 1 drop Documented by: Budesonide/Formoterol Fumarate (Symbicort 160-4.5 Mcg) 0 gm INH BID [facility] Last Admin: 08/23/20 09:41 Dose: 1 puff Documented by: Carbidopa/Levodopa (Sinemet 25-100 Mg) 1 tab PO TID [facility] Last Admin: 08/23/20 13:20 Dose: 1 tab Documented by: Docusate Sodium (Colace) 100 mg PO DAILY PRN PRN Reason: Constipation Last Admin: 08/23/20 09:39 Dose: 100 mg Documented by: Enoxaparin Sodium (Lovenox) 70 mg SUBCUT Q24H [facility] Last Admin: 08/22/20 17:37 Dose: 70 mg Documented by: Fish Oil (Fish Oil) 1 gm PO BID [facility] Last Admin: 08/23/20 09:23 Dose: 1 gm Documented by: Lactated Ringer's (Ringers, Lactated) 1,000 mls @ 125 mls/hr IV ASDIRECTED [facility] Last Admin: 08/23/20 15:22 Dose: 125 mls/hr Documented by: Vancomycin HCl 1 gm/ Sodium (Chloride) 250 mls @ 166.667 mls/hr IV Q24H [facility] Last Admin: 08/23/20 11:30 Dose: 166.667 mls/hr Documented by: Piperacillin Sod/Tazobactam (Sod 3.375 gm/ Sodium Chloride) 50 mls @ 100 mls/hr IV Q6H [facility] Last Admin: 08/23/20 13:22 Dose: 100 mls/hr Documented by: Levothyroxine Sodium (Synthroid) 50 mcg PO ACBREAKFAST [facility] Last Admin: 08/23/20 06:56 Dose: 50 mcg Documented by: Morphine Sulfate (Morphine) 1 mg IVPUSH Q3H PRN PRN Reason: Pain (severe 7-10) Multivitamins/Minerals/Vitamin C (Tab-A-Harjeet) 1 tab PO DAILY [facility] Last Admin: 08/23/20 09:23 Dose: 1 tab Documented by: Omeprazole (Omeprazole) 20 mg PO BIDAC [facility] Last Admin: 08/23/20 16:29 Dose: 20 mg Documented by: Ondansetron HCl (Zofran) 4 mg IVPUSH Q4H PRN PRN Reason: Nausea/Vomiting Prednisone (Prednisone) 5 mg PO BID [facility] Last Admin: 08/23/20 09:23 Dose: 5 mg Documented by: Sodium Chloride (Saline Flush) 10 ml FLUSH ASDIRECTED PRN PRN Reason: Keep Vein Open Last Admin: 08/21/20 10:27 Dose: 10 ml Documented by: Sodium Chloride (Saline Flush) 2.5 ml FLUSH ASDIRECTED PRN PRN Reason: Keep Vein Open Last Admin: 08/21/20 10:26 Dose: 2.5 ml Documented by: Timolol Maleate (Timoptic 0.5% [facility] Sol) 0 ml EYEBOTH BID [facility] Last Admin: 08/23/20 09:24 Dose: 1 drop Documented by: Vancomycin HCl (Pharmacy To Dose - Vancomycin) 1 dose .XX ASDIRECTED [facility] Discontinued Medications Albuterol/Ipratropium (Duoneb 3.0-0.5 Mg/3 Ml) 3 ml NEB Q4HRRT PRN PRN Reason: Shortness Of Breath/wheezing Last Admin: 08/22/20 03:27 Dose: 3 ml Documented by: Enoxaparin Sodium (Lovenox) 40 mg SUBCUT Q12H [facility] Last Admin: 08/22/20 03:22 Dose: 40 mg Documented by: Vancomycin HCl 1.1 gm/ (Dextrose/Water) 250 mls @ 167 mls/hr IV ONETIME ONE Stop: 08/21/20 11:35 Last Admin: 08/21/20 10:38 Dose: Not Given Documented by: Ceftriaxone Sodium 1 gm/ (Sodium Chloride) 100 mls @ 200 mls/hr IV STAT ONE Stop: 08/21/20 10:35 Last Admin: 08/21/20 10:27 Dose: Not Given Documented by: Sodium Chloride (Normal Saline) 1,000 mls @ 999 mls/hr IV BOLUS ONE; Protocol Stop: 08/21/20 11:06 Last Admin: 08/21/20 10:24 Dose: 999 mls/hr Documented by: Ceftriaxone Sodium/Dextrose 1 (gm/ Premix) 50 mls @ 100 mls/hr IV STAT ONE Stop: 08/21/20 10:59 Last Admin: 08/21/20 10:25 Dose: 100 mls/hr Documented by: Vancomycin HCl 1.25 gm/ Premix 250 mls @ 167.007 mls/hr IV ONETIME ONE Stop: 08/21/20 11:59 Last Admin: 08/21/20 10:37 Dose: 167.007 mls/hr Documented by: Vancomycin HCl 1 gm/ Sodium (Chloride) 250 mls @ 166.667 mls/hr IV Q24H [facility] Last Admin: 08/22/20 11:46 Dose: Not Given Documented by: Magnesium Sulfate (Magnesium Sulfate In Water Premix) 2 gm in 50 mls @ 50 mls/hr IV ONETIME ONE Stop: 08/22/20 09:35 Last Admin: 08/22/20 08:43 Dose: 50 mls/hr Documented by: Lactated Ringer's (Ringers, Lactated) 1,000 mls @ 999 mls/hr IV BOLUS [facility] Stop: 08/22/20 13:01 Last Admin: 08/22/20 12:55 Dose: 999 mls/hr Documented by: Ketorolac Tromethamine (Toradol) 15 mg IVPUSH ONETIME [facility] Stop: 08/21/20 11:25 Last Admin: 08/21/20 11:32 Dose: 15 mg Documented by: Ketorolac Tromethamine (Toradol) 15 mg IM ONETIME ONE Stop: 08/21/20 14:17 Last Admin: 08/21/20 14:37 Dose: 15 mg Documented by: Morphine Sulfate (Morphine) 2 mg IVPUSH ONETIME ONE Stop: 08/21/20 10:35 Last Admin: 08/21/20 10:37 Dose: 2 mg Documented by: Morphine Sulfate (Morphine) Confirm Administered Dose 2 mg .ROUTE .STK-MED ONE Stop: 08/21/20 10:36 Last Admin: 08/21/20 10:38 Dose: Not Given Documented by: Morphine Sulfate (Morphine) 2 mg IVPUSH ONETIME ONE Stop: 08/21/20 11:01 Last Admin: 08/21/20 11:06 Dose: 2 mg Documented by: Non-Formulary Medication (Mineral Oil/Petrolatum,White [Refresh P.M.]) 1 applic EYEBOTH BEDTIME [facility] Non-Formulary Medication (Mouthwash-Om) 1 dose PO ASDIRECTED PRN PRN Reason: Other Polyethylene Glycol (Miralax) 17 gm PO ONETIME ONE Stop: 08/22/20 10:35 Last Admin: 08/22/20 11:41 Dose: 17 gm Documented by: - Exam Quality Assessment: DVT Prophylaxis (On full dose Lovenox weight-based) General: Alert, Oriented, Cooperative, No Acute Distress HEENT: Pupils Equal, Pupils Reactive, EOMI, Mucous Membr. Moist/Eclectic Neck: Supple Lungs: Clear to Auscultation, Normal Respiratory Effort Cardiovascular: Regular Rate, Regular Rhythm GI/Abdominal Exam: Normal Bowel Sounds, Soft, Non-Tender, No Distention Extremities: Normal Inspection, Normal Range of Motion, No Pedal Edema, Normal Capillary Refill Peripheral Pulses: 2+: Radial (L), Radial (R), Dorsalis Pedis (L), Dorsalis Pedis (R) Skin: Warm, Dry, Intact Wound/Incisions: Healing Well Neurological: No New Focal Deficit Psy/Mental Status: Alert, Normal Affect, Normal Mood Sepsis Event Note - Evaluation Sepsis Screening Result: No Definite Risk - Focused Exam Vital Signs: Vital Signs Temp Pulse Resp BP BP Pulse Ox 08/23/20 16:00 96.8 F L 107 H 20 140/69 95 08/23/20 11:32 96 F L 94 22 H 102/64 95 08/23/20 09:25 124/63 08/23/20 07:29 96.4 F L 99 20 124/63 95 - Problem List Review Problem List Initiated/Reviewed/Updated: Yes - Plan Plan:: Patient is a 89-year-old female admitted for right arm cellulitis and 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 1. Cellulitis: Leukocytosis trending down Started patient on empiric antibiotics vancomycin, add zosyn due to concern of gram negative/pseudomonas as her injury was noted coming out of a pool, blood cultures indicated no growth and wound culture indicated staph aureus. 1 mg morphine every 3 hours as needed for pain, currently pain is well controlled we will continue as needed Tylenol for fever as needed Zofran for nausea 2. Constipation: -No bowel movement, abdomen is soft, nontender with normal bowel sounds throughout. Patient is still tolerating p.o. diet appropriately MiraLAX daily Docusate twice daily Encouraged to ambulate and hydrate to encourage bowel motility to allow for bowel movement. DVT prophylaxis full dose Lovenox weight-based due to lower extremity chronic clot causing swelling and redness and calf which has improved, GI prophylaxis 40 pantoprazole daily, up with assistance. sepsis from cellulitis: see note above I performed a history and physical exam of the patient and discussed management with resident. I have reviewed the residents note and agree with documented findings and plan unless otherwise specified in my note.
[2020-08-23] MEDS: Enoxaparin 100 MG/1 ML Syringe SUBCUT SCH (18:36)
[2020-08-24] MEDS: Piperacillin/Tazobactam 3.375 GM in Sodium Chloride 0.9% 50 ML IV SCH ×4 (00:34→19:05)
[2020-08-24] MEDS: Lactated Ringers 1,000 ML IV SCH ×2 (01:41→10:53)
[2020-08-24] MEDS: Albuterol/Ipratropium 3.0-0.5 MG/3 ML Neb Soln NEB SCH ×6 (01:44→21:21)
[2020-08-24] MEDS: Carbidopa/Levodopa 25-100 MG Tab PO SCH ×3 (05:12→21:38)
[2020-08-24 05:58] LABS: CARBON DIOXIDE,CO2 21.5 mmol/L (21.0-32.0); POTASSIUM,K 4.3 mmol/L (3.5-5.1)
[2020-08-24] MEDS: Omeprazole 20 MG Cap.CR PO SCH ×2 (07:14→17:57)
[2020-08-24] MEDS: Levothyroxine 50 MCG Tab PO SCH (07:14)
[2020-08-24] MEDS: Fish Oil/Omega-3 Fatty Acids 1 Gm Cap PO SCH ×2 (08:00→21:38)
[2020-08-24] MEDS: Multivitamin Tab PO SCH (08:11)
[2020-08-24] MEDS: predniSONE 5 MG Tab PO SCH ×2 (08:13→21:38)
[2020-08-24] MEDS: Acetaminophen 325 MG Tab PO PRN ×3 (08:13→21:53)
[2020-08-24] MEDS: amLODIPine 5 MG Tab PO SCH (08:13)
[2020-08-24] MEDS: Brimonidine 0.2% Ophth Soln 5 ML Bottle EYEBOTH SCH ×2 (08:16→21:38)
[2020-08-24] MEDS: Timolol Maleate 0.5% Ophth Soln 15 ML Bottle EYEBOTH SCH ×2 (08:28→21:38)
[2020-08-24] MEDS: Carboxymethylcellulose Sodium 0.5% Ophth Soln 0.4 ML UD Box of 30 EYEBOTH SCH ×2 (08:29→21:39)
[2020-08-24] MEDS: Budesonide/Formoterol 160-4.5 MCG/Puff 6 GM Inhaler INH SCH ×2 (09:55→21:21)
--- NOTE | 2020-08-24 16:53 | PCM.PN ---
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 There were no overnight events, this morning feels better, erythema has improved, but still remains swollen and red. Pain is well controlled, patient is tolerating p.o. diet. Denies any fever, chills, shortness of breath. Functional Status: Reports: Pain Controlled, Tolerating Diet, Ambulating - Review of Systems HEENT: Reports: No Symptoms Pulmonary: Reports: No Symptoms Cardiovascular: Reports: No Symptoms Gastrointestinal: Reports: No Symptoms Genitourinary: Reports: No Symptoms Musculoskeletal: Reports: Hand Pain Skin: Reports: Other (Treating cellulitis) Neurological: Reports: No Symptoms Psychiatric: Reports: No Symptoms - Patient Data Vitals - Most Recent: Last Vital Signs Temp 98 F 08/24/20 13:46 Pulse 81 08/24/20 13:46 Resp 18 08/24/20 13:46 BP 142/75 H 08/24/20 13:46 Pulse Ox 95 08/24/20 13:46 Weight - Most Recent: 146 lb I&O - Last 24 Hours: Intake & Output 08/24/20 08/24/20 08/24/20 06:59 14:59 22:59 Intake Total 8121 349 6043 Output Total 500 1300 Balance 1446 350 -54 Lab Results Last 24 Hours: Laboratory Results - last 24 hr 08/24/20 08/24/20 Range/Units 04:32 04:32 WBC 8.62 (4.0-11.0) K/uL RBC 3.45 L (4.30-5.90) M/uL Hgb 11.2 L (12.0-16.0) g/dL Hct 35.1 L (36.0-46.0) % MCV 101.7 H (80.0-98.0) fL MCH 32.5 H (27.0-32.0) pg MCHC 31.9 (31.0-37.0) g/dL RDW Std Deviation 55.0 (28.0-62.0) fl RDW Coeff of Sánchez 15 (11.0-15.0) % Plt Count 201 (150-400) K/uL MPV 9.60 (7.40-12.00) fL Neut % (Auto) 84.0 H (48.0-80.0) % Lymph % (Auto) 11.3 L (16.0-40.0) % Bledsoe % (Auto) 4.6 (0.0-15.0) % Eos % (Auto) 0.1 (0.0-7.0) % Baso % (Auto) 0.0 (0.0-1.5) % Neut # (Auto) 7.2 H (1.4-5.7) K/uL Lymph # (Auto) 1.0 (0.6-2.4) K/uL Bledsoe # (Auto) 0.4 (0.0-0.8) K/uL Eos # (Auto) 0.0 (0.0-0.7) K/uL Baso # (Auto) 0.0 (0.0-0.1) K/uL Nucleated RBC % 0.0 /100WBC Nucleated RBCs # 0 K/uL Sodium 137 (136-145) mmol/L Potassium 4.3 (3.5-5.1) mmol/L Chloride 105 (98-107) mmol/L Carbon Dioxide 21.5 (21.0-32.0) mmol/L BUN 25 H (7.0-18.0) mg/dL Creatinine 0.9 (0.6-1.0) mg/dL Est Cr Clr Drug Dosing 31.04 mL/min Estimated GFR (MDRD) 59.1 ml/min Glucose 130 H (74-106) mg/dL Calcium 9.5 (8.5-10.1) mg/dL Total Bilirubin 0.4 (0.2-1.0) mg/dL AST 15 (15-37) IU/L ALT 7 L (14-63) IU/L Alkaline Phosphatase 75 (46-116) U/L Total Protein 5.8 L (6.4-8.2) g/dL Albumin 2.0 L (3.4-5.0) g/dL Globulin 3.8 (2.6-4.0) g/dL Albumin/Globulin Ratio 0.5 L (0.9-1.6) Nikolai Results Last 24 Hours: Microbiology 08/21/20 10:24 Aerobic Blood Culture - Preliminary Blood - Venous - Lab Draw NO GROWTH AFTER 3 DAYS Anaerobic Blood Culture - Final 08/21/20 09:55 Aerobic Blood Culture - Preliminary Blood - Venous NO GROWTH AFTER 3 DAYS Anaerobic Blood Culture - Preliminary NO GROWTH AFTER 3 DAYS Med Orders - Current: Current Medications Acetaminophen (Tylenol) 650 mg PO Q4H PRN PRN Reason: Pain (Mild 1-3)/fever Last Admin: 08/24/20 13:37 Dose: 650 mg Documented by: Albuterol/Ipratropium (Duoneb 3.0-0.5 Mg/3 Ml) 3 ml NEB Q4HRRT [facility] Last Admin: 08/24/20 13:41 Dose: 3 ml Documented by: Amlodipine Besylate (Norvasc) 5 mg PO DAILY [facility] Last Admin: 08/24/20 08:13 Dose: 5 mg Documented by: Artificial Tears (Refresh Plus 0.5%) 0 each EYEBOTH BID [facility] Last Admin: 08/24/20 08:29 Dose: 1 drop Documented by: Brimonidine Tartrate (Alphagan 0.2% Oph Soln) 0 ml EYEBOTH BID [facility] Last Admin: 08/24/20 08:16 Dose: 1 drop Documented by: Budesonide/Formoterol Fumarate (Symbicort 160-4.5 Mcg) 0 gm INH BID [facility] Last Admin: 08/24/20 09:55 Dose: 2 puff Documented by: Carbidopa/Levodopa (Sinemet 25-100 Mg) 1 tab PO TID [facility] Last Admin: 08/24/20 13:37 Dose: 1 tab Documented by: Docusate Sodium (Colace) 100 mg PO DAILY PRN PRN Reason: Constipation Last Admin: 08/23/20 09:39 Dose: 100 mg Documented by: Enoxaparin Sodium (Lovenox) 70 mg SUBCUT Q24H [facility] Last Admin: 08/23/20 18:36 Dose: 70 mg Documented by: Fish Oil (Fish Oil) 1 gm PO BID [facility] Last Admin: 08/24/20 08:00 Dose: 1 gm Documented by: Lactated Ringer's (Ringers, Lactated) 1,000 mls @ 125 mls/hr IV ASDIRECTED [facility] Last Admin: 08/24/20 10:53 Dose: 125 mls/hr Documented by: Vancomycin HCl 1 gm/ Sodium (Chloride) 250 mls @ 166.667 mls/hr IV Q24H [facility] Last Admin: 08/24/20 11:56 Dose: 166.667 mls/hr Documented by: Piperacillin Sod/Tazobactam (Sod 3.375 gm/ Sodium Chloride) 50 mls @ 100 mls/hr IV Q6H [facility] Last Admin: 08/24/20 13:36 Dose: 100 mls/hr Documented by: Levothyroxine Sodium (Synthroid) 50 mcg PO ACBREAKFAST [facility] Last Admin: 08/24/20 07:14 Dose: 50 mcg Documented by: Morphine Sulfate (Morphine) 1 mg IVPUSH Q3H PRN PRN Reason: Pain (severe 7-10) Multivitamins/Minerals/Vitamin C (Tab-A-Harjeet) 1 tab PO DAILY [facility] Last Admin: 08/24/20 08:11 Dose: 1 tab Documented by: Omeprazole (Omeprazole) 20 mg PO BIDAC [facility] Last Admin: 08/24/20 07:14 Dose: 20 mg Documented by: Ondansetron HCl (Zofran) 4 mg IVPUSH Q4H PRN PRN Reason: Nausea/Vomiting Prednisone (Prednisone) 5 mg PO BID [facility] Last Admin: 08/24/20 08:13 Dose: 5 mg Documented by: Sodium Chloride (Saline Flush) 10 ml FLUSH ASDIRECTED PRN PRN Reason: Keep Vein Open Last Admin: 08/21/20 10:27 Dose: 10 ml Documented by: Sodium Chloride (Saline Flush) 2.5 ml FLUSH ASDIRECTED PRN PRN Reason: Keep Vein Open Last Admin: 08/21/20 10:26 Dose: 2.5 ml Documented by: Timolol Maleate (Timoptic 0.5% [facility]) 0 ml EYEBOTH BID [facility] Last Admin: 08/24/20 08:28 Dose: 1 drop Documented by: Vancomycin HCl (Pharmacy To Dose - Vancomycin) 1 dose .XX ASDIRECTED [facility] Discontinued Medications Albuterol/Ipratropium (Duoneb 3.0-0.5 Mg/3 Ml) 3 ml NEB Q4HRRT PRN PRN Reason: Shortness Of Breath/wheezing Last Admin: 08/22/20 03:27 Dose: 3 ml Documented by: Enoxaparin Sodium (Lovenox) 40 mg SUBCUT Q12H [facility] Last Admin: 08/22/20 03:22 Dose: 40 mg Documented by: Vancomycin HCl 1.1 gm/ (Dextrose/Water) 250 mls @ 167 mls/hr IV ONETIME ONE Stop: 08/21/20 11:35 Last Admin: 08/21/20 10:38 Dose: Not Given Documented by: Ceftriaxone Sodium 1 gm/ (Sodium Chloride) 100 mls @ 200 mls/hr IV STAT ONE Stop: 08/21/20 10:35 Last Admin: 08/21/20 10:27 Dose: Not Given Documented by: Sodium Chloride (Normal Saline) 1,000 mls @ 999 mls/hr IV BOLUS ONE; Protocol Stop: 08/21/20 11:06 Last Admin: 08/21/20 10:24 Dose: 999 mls/hr Documented by: Ceftriaxone Sodium/Dextrose 1 (gm/ Premix) 50 mls @ 100 mls/hr IV STAT ONE Stop: 08/21/20 10:59 Last Admin: 08/21/20 10:25 Dose: 100 mls/hr Documented by: Vancomycin HCl 1.25 gm/ Premix 250 mls @ 167.007 mls/hr IV ONETIME ONE Stop: 08/21/20 11:59 Last Admin: 08/21/20 10:37 Dose: 167.007 mls/hr Documented by: Vancomycin HCl 1 gm/ Sodium (Chloride) 250 mls @ 166.667 mls/hr IV Q24H [facility] Last Admin: 08/22/20 11:46 Dose: Not Given Documented by: Magnesium Sulfate (Magnesium Sulfate In Water Premix) 2 gm in 50 mls @ 50 mls/hr IV ONETIME ONE Stop: 08/22/20 09:35 Last Admin: 08/22/20 08:43 Dose: 50 mls/hr Documented by: Lactated Ringer's (Ringers, Lactated) 1,000 mls @ 999 mls/hr IV BOLUS ANAMARIA Stop: 08/22/20 13:01 Last Admin: 08/22/20 12:55 Dose: 999 mls/hr Documented by: Ketorolac Tromethamine (Toradol) 15 mg IVPUSH ONETIME STA Stop: 08/21/20 11:25 Last Admin: 08/21/20 11:32 Dose: 15 mg Documented by: Ketorolac Tromethamine (Toradol) 15 mg IM ONETIME ONE Stop: 08/21/20 14:17 Last Admin: 08/21/20 14:37 Dose: 15 mg Documented by: Morphine Sulfate (Morphine) 2 mg IVPUSH ONETIME ONE Stop: 08/21/20 10:35 Last Admin: 08/21/20 10:37 Dose: 2 mg Documented by: Morphine Sulfate (Morphine) Confirm Administered Dose 2 mg .ROUTE .STK-MED ONE Stop: 08/21/20 10:36 Last Admin: 08/21/20 10:38 Dose: Not Given Documented by: Morphine Sulfate (Morphine) 2 mg IVPUSH ONETIME ONE Stop: 08/21/20 11:01 Last Admin: 08/21/20 11:06 Dose: 2 mg Documented by: Non-Formulary Medication (Mineral Oil/Petrolatum,White [Refresh P.M.]) 1 applic EYEBOTH BEDTIME [facility] Non-Formulary Medication (Mouthwash-Om) 1 dose PO ASDIRECTED PRN PRN Reason: Other Polyethylene Glycol (Miralax) 17 gm PO ONETIME ONE Stop: 08/22/20 10:35 Last Admin: 08/22/20 11:41 Dose: 17 gm Documented by: - Exam Quality Assessment: DVT Prophylaxis General: Alert, Oriented, Cooperative, No Acute Distress HEENT: Pupils Equal, Pupils Reactive, EOMI, Mucous Membr. Moist/[place]: Supple. No: No JVD, Lymphadenopathy Lungs: Clear to Auscultation, Normal Respiratory Effort Cardiovascular: Regular Rate, Regular Rhythm GI/Abdominal Exam: Normal Bowel Sounds, Soft, Non-Tender, No Organomegaly, No Distention, No Abnormal Bruit, No Mass, Pelvis Stable Back Exam: Normal Inspection, Full Range of Motion Extremities: Normal Inspection, Normal Range of Motion, Non-Tender, Normal Capillary Refill, Pedal Edema (Improved). No: Redness Peripheral Pulses: 2+: Radial (L), Radial (R), Posterior Tibial (L), Posterior Tibial (R) Skin: Warm, Dry, Intact Wound/Incisions: Healing Well Neurological: No New Focal Deficit Psy/Mental Status: Alert, Normal Affect, Normal Mood Sepsis Event Note - Evaluation Sepsis Screening Result: No Definite Risk - Focused Exam Vital Signs: Vital Signs Temp Pulse Resp BP BP Pulse Ox 08/24/20 13:46 98 F 81 18 142/75 H 95 08/24/20 08:13 161/92 H 08/24/20 07:42 97.9 F 88 18 161/92 H 95 - Problem List Review Problem List Initiated/Reviewed/Updated: Yes - My Orders Last 24 Hours: My Active Orders 08/24/20 15:55 Consult to Physician [CONS] Routine 08/24/20 15:56 Notify Provider Consults [RC] ASDIRECTED 08/24/20 15:57 Extremity Non Vascular LTD [US] Stat 08/25/20 05:11 CBC WITH AUTO DIFF [HEME] AM CMP [COMPREHENSIVE METABOLIC PN,CMP] [CHEM] AM 08/26/20 05:11 CBC WITH AUTO DIFF [HEME] AM CMP [COMPREHENSIVE METABOLIC PN,CMP] [CHEM] AM 08/27/20 05:11 CBC WITH AUTO DIFF [HEME] AM CMP [COMPREHENSIVE METABOLIC PN,CMP] [CHEM] AM 08/28/20 05:11 CBC WITH AUTO DIFF [HEME] AM CMP [COMPREHENSIVE METABOLIC PN,CMP] [CHEM] AM - Plan Plan:: Patient is a 89-year-old female admitted for right arm cellulitis and 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 1. Cellulitis: Improved, decreased erythema and swelling, significant improvement over the digits today, however has noted possible small abscess on the dorsal aspect of right hand. Will consult surgery for possible I&D, as well as get hand ultrasound to help identify if there is an abscess developing. Leukocytosis continues to trend down, 8.6 today empiric antibiotics vancomycin, add zosyn due to concern of gram negative/pseudomonas as her injury was noted coming out of a pool, blood cultures indicated no growth and wound culture indicated staph aureus. 1 mg morphine every 3 hours as needed for pain, currently pain is well controlled we will continue as needed Tylenol for fever as needed Zofran for nausea 2. Constipation: -Resolved, patient has had 2 bowel movements last 24 hours, abdomen is soft, nontender with normal bowel sounds throughout. Patient is still tolerating p.o. diet appropriately MiraLAX daily Docusate twice daily Encouraged to ambulate and hydrate to encourage bowel motility to allow for bowel movement. DVT prophylaxis full dose Lovenox weight-based due to lower extremity chronic clot causing swelling and redness and calf which has improved, GI prophylaxis 40 pantoprazole daily, up with assistance. sepsis from cellulitis: see note above I performed a history and physical exam of the patient and discussed management with resident. I have reviewed the residents note and agree with documented findings and plan unless otherwise specified in my note.
--- NOTE | 2020-08-24 17:43 | US ---
Indication: Possible abscess on the dorsal aspect of the hand. Technique: Soft tissue ultrasound of the dorsal aspect of the right hand. Comparison: 08/22/2020 CT. Findings: There is soft tissue swelling along the dorsal aspect of the hand, with a focal hypoechoic collection measuring 4.6 x 1.6 x 5.3 cm. There is also mild extensor tendon tenosynovitis noted. Impression: Hypoechoic collection along the dorsal aspect of the hand suspicious for abscess, better assessed on subsequent CT. Dictated by Regino Lima MD @ Aug 29 2020 9:01AM Signed by Dr. Regino Lima @ Aug 29 2020 9:08AM
[2020-08-24] MEDS: Enoxaparin 100 MG/1 ML Syringe SUBCUT SCH (18:00)
[2020-08-24] MEDS ORDERED: Iopamidol 755 MG/ML 500 ML Multipack Bottle IVPUSH STA (23:39)
--- NOTE | 2020-08-25 00:21 | CT ---
Indication: Right hand swelling, evaluate for abscess. Technique: Spiral CT examination of the hand is performed before and after the uneventful intravenous administration of 100 cc of Isovue 370. The patient is unable to move her hand away from her abdomen, resulting in decreased sensitivity for fine detail. 0.8 and 3.0 millimeter thick axial and 2 millimeter thick sagittal and coronal sections are obtained. Comparison: Ultrasound of the hand from earlier today and CT of the hand without contrast from 08/22/2020. Findings: There is increased soft tissue swelling dorsal to the 4th and 5th metacarpal heads and distal shafts, with subtle decreased density suspicious for an abscess. This would correlate with the appearance on today`s ultrasound. There is no peripheral enhancement. The area of possible abscess measures 3.5 x 1.3 by 1.1 centimeters. No sign of any associated osseous destruction to suggest osteomyelitis. Again seen is the pencil in cup deformity of the 2nd DIP, 3rd PIP, and 4th PIP joints suggesting psoriatic arthritis or another inflammatory arthritis. There is mild primary osteoarthritis of the 3rd DIP and 1st interphalangeal joints. Mild primary osteoarthritis is seen involving the 1st CMC joint and the triscaphe region at the base of the thumb. There is mild primary osteoarthritis of the radiocarpal articulation. There is moderate widening of the scapholunate articulation suggesting ligamentous disruption or laxity. The bones of the carpus are otherwise in anatomic alignment. Again seen is cystic degeneration of the distal scaphoid and lunate of uncertain etiology. Impression: New abscess without peripheral enhancement seen dorsal to the heads and distal shafts of the 4th and 5th metacarpals, with no sign of any associated osteomyelitis. 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 Scapholunate ligament degeneration/disruption. Please note that all CT scans at this facility use dose modulation, iterative reconstruction, and/or weight-based dosing when appropriate to reduce radiation dose to as low as reasonably achievable. Dictated by Yassine Bueno MD @ Aug 25 2020 12:05AM Signed by Dr. Yassine Bueno @ Aug 25 2020 12:19AM
[2020-08-25] MEDS: Piperacillin/Tazobactam 3.375 GM in Sodium Chloride 0.9% 50 ML IV SCH ×4 (01:45→18:51)
[2020-08-25] MEDS: Albuterol/Ipratropium 3.0-0.5 MG/3 ML Neb Soln NEB SCH ×6 (01:45→21:17)
[2020-08-25] MEDS: Acetaminophen 325 MG Tab PO PRN ×4 (02:09→21:49)
[2020-08-25] MEDS: Lactated Ringers 1,000 ML IV SCH (02:35)
[2020-08-25 06:08] LABS: CARBON DIOXIDE,CO2 25.7 mmol/L (21.0-32.0); POTASSIUM,K 4.2 mmol/L (3.5-5.1)
[2020-08-25] MEDS: Omeprazole 20 MG Cap.CR PO SCH ×2 (07:11→17:14)
[2020-08-25] MEDS: Levothyroxine 50 MCG Tab PO SCH (07:11)
[2020-08-25] MEDS: Carbidopa/Levodopa 25-100 MG Tab PO SCH ×3 (07:11→21:47)
[2020-08-25] MEDS: Timolol Maleate 0.5% Ophth Soln 15 ML Bottle EYEBOTH SCH ×2 (08:05→21:48)
[2020-08-25] MEDS: Brimonidine 0.2% Ophth Soln 5 ML Bottle EYEBOTH SCH ×2 (08:05→21:47)
[2020-08-25] MEDS: Carboxymethylcellulose Sodium 0.5% Ophth Soln 0.4 ML UD Box of 30 EYEBOTH SCH ×2 (08:05→21:48)
[2020-08-25] MEDS: Fish Oil/Omega-3 Fatty Acids 1 Gm Cap PO SCH ×2 (08:06→21:47)
[2020-08-25] MEDS: amLODIPine 5 MG Tab PO SCH (08:06)
[2020-08-25] MEDS: predniSONE 5 MG Tab PO SCH ×2 (08:06→21:47)
[2020-08-25] MEDS: Multivitamin Tab PO SCH (08:06)
[2020-08-25] MEDS: Docusate Sodium 100 MG Cap PO PRN (08:10)
--- NOTE | 2020-08-25 09:08 | CONS ---
DATE OF CONSULTATION: 08/24/2020 DATE OF : 1930 PRIMARY CARE PHYSICIAN: None PCP REASON FOR CONSULT: Cellulitis with possible fluid collection. HISTORY OF PRESENT ILLNESS: The patient is a pleasant 89-year-old female who was admitted 3 days ago for cellulitis of her right arm. She says she had a fall about 7 days ago when her hand hit a railing. She got a cut on the dorsum of her hand. Several days later, she noticed swelling. It started swelling and became very painful. It became so painful she could not withstand it anymore so she came in to the hospital. She was admitted to the medicine service. She was started on antibiotics. Per the hospital service, the swelling and erythema have actually greatly reduced, but as the swelling in hand gone down, they noticed 1 area of the hand where the swelling stays about the same, on the dorsum. They are questioning a possible abscess. She did have a CT scan done on admission that showed cellulitis and edema of the hand, but no actual definitive fluid collection. Currently, patient states things are going well. She still has pain in her right hand. She is unable to close it, but feels it is getting little bit better. She did have an ultrasound done today that just showed potential fluid collection that could be hematoma or abscess. The patient is on therapeutic Lovenox because of a chronic blood clot in the leg. PAST MEDICAL HISTORY: 1. Arthritis. 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 3. Hypothyroidism. 4. Bronchial asthma. CURRENT HOME MEDICATIONS: 1. Milk of mag p.r.n. 2. Melatonin. 3. Prednisone 5 mg p.o. b.i.d. 4. Norvasc 5 mg p.o. daily. 5. Omeprazole 20 mg p.o. daily. 6. Synthroid 50 mcg p.o. daily. 7. Carbidopa/levodopa 25/100 tablets t.i.d. 8. Symbicort 2 puffs inhaler b.i.d. 9. Albuterol inhaler. 10.Tylenol p.r.n. ALLERGIES: The patient said she has a statin allergy, but also listed on her MAR is 1. YANY inhibitor. 2. Erythromycin. 3. Ethyl alcohol. 4. Hydrochlorothiazide. 5. Latex. 6. Perfume. 7. Kerlix. 8. Polyester. 9. Metal. 10.Cleaning supplies. PAST SURGICAL HISTORY: 1. The patient says she had kidney stones removed. 2. Tonsillectomy. The patient's medical record also lists appendectomy and hip replacement. FAMILY HISTORY: Patient really denies any. REVIEW OF SYSTEMS: Complete 12+ review of systems was done, was negative except for what is in the HPI. PULMONARY: The patient states she does have asthma. GASTROINTESTINAL: The patient states she often has constipation. GENITOURINARY: The patient states she has urinary incontinence. NEUROLOGIC: The patient states she does have numbness and tingling and has vascular neuritis. MUSCULOSKELETAL: The patient says she does walk, but needs a roller walker to ambulate; however, she says she does fall. She has had 2 to 3 falls this year. LABORATORY DATA: White cell count 8.6, hemoglobin is 11.2, platelet count is 201. Sodium 137, potassium 4.3, chloride 105, BUN 25, creatinine 0.9, glucose is 130. Cultures from the wound is Staph aureus. IMAGING: As per HPI. PHYSICAL EXAMINATION: GENERAL: The patient is sitting comfortably in her hospital room. She is alert and oriented, in no acute distress. EXTREMITIES: On her right forearm, she does have quite a bit of bruising. On the dorsum of the hand, she does have a laceration in a V-shape fashion just above her wrist. Above that she does have quite a bit of edema and swelling in her hand and fingers. Then, in the upper part of dorsum of her hand closest to her pinky and ring finger, she does have area of some slight fluctuance and even bruising. This area is tender to touch. Left hand also has arthritis, but she is able to close it. She does have quite a bit of bruising down her arms. ASSESSMENT AND PLAN: This is a pleasant 89-year-old female who fell about a week ago and developed cellulitis from a cut to her right hand. She has been in the hospital 3 days on antibiotics. Per report, this has been getting a lot better, but potentially she might be having convalescence of abscess or maybe even a hematoma. She is on Lovenox. I did go over with the patient that we are waiting another CT to see the extent or if there is actual fluid collection that could come out since there was not one seen earlier. I did go over with the patient that her skin is fairly fragile and that if we do the incision, it might take some time to heal. We went over that if there is some fluid that come out, we will do a small incision. If she needs any further debridement, she should see an orthopedic hand specialist. I did talk to the Medicine team, went over that we will wait for the CT scan that probably would not be done until later this evening. As she is on therapeutic Lovenox, I did recommend that we hold Lovenox if the Medicine team agreed it could be done safely. We could do that for potential I and D of the right hand. We will come back and reevaluate the patient tomorrow morning. Plan was discussed with the Medicine team. TERESA GIBSON /[id number] MTDD
[2020-08-25] MEDS ORDERED: Lidocaine 1% 20 ML MDV INJECT ONE (09:28)
[2020-08-25] MEDS: Budesonide/Formoterol 160-4.5 MCG/Puff 6 GM Inhaler INH SCH ×2 (09:37→21:26)
--- NOTE | 2020-08-25 12:38 | PN ---
SUBJECTIVE: The patient is sitting comfortably in her chair. She is alert and oriented, and in no acute distress. She reports that her hand is starting to feel better today, but the patient says the hand still hurts. OBJECTIVE: Right hand again is swollen, although again less edematous than yesterday with some bruising and an area of fluctuance along the 4th and 5th metatarsal on the of dorsum of the hand right below her ring finger. Not quite sure again if this is an abscess or potentially a hematoma. IMAGING: CT scan that was done last night did show that there is fluid collection around the dorsum at 4th and 5th metatarsal. ASSESSMENT AND PLAN: This is a pleasant 89-year-old female who got a cut on her hand from a fall that became infected and had a fairly severe cellulitis. Antibiotics have been started and there has been decreasing in the swelling, but she now has an area of fluctuance on her dorsum on her 4th and 5th metatarsal. Skin is bruise. I did go over with the patient that this could be an abscess or potentially a hematoma since she is on therapeutic Lovenox. I did go over with the patient that whether it is an abscess or hematoma is should be drain. It is starting to cause some stretch and this might help with some of the pain and discomfort she is having in her hand. I did go over the risks, goals, and alternatives again with the patient. Risks include but not limited to bleeding, infection, injury to underlying structures. Her skin is very fragile and poor healing. The patient understands, wishes to proceed. Informed consent was obtained for incision and drainage of right dorsal of her hand. The area was prepped and cleaned in a sterile fashion. She had received some of her already scheduled morphine. The area was then injected with 1% lidocaine local. In the area of most fluctuance, a small superficial incision was made, then some darker blood came out. The area did appear to completely drain. I did flush the wound. At the end, there was good hemostasis. The hematoma had completely drained. Now, a 4x4 was placed on the dorsal of her hand and wrapped gently with a gauze. Did go over with nursing staff that this could be changed twice a day or p.r.n. She did have some pain relief with releasing of the pressure. I did talk to the Medicine team. All her questions were answered. TERESA / ARTHUR /[id number] PADMAJA
--- NOTE | 2020-08-25 16:00 | PCM.PN ---
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 There were no overnight events, this morning feels better, erythema has improved, but still remains swollen and red. Pain is well controlled, patient is tolerating p.o. diet. Denies any fever, chills, shortness of breath. Functional Status: Reports: Tolerating Diet Pain Score: 6 - Review of Systems General: Reports: No Symptoms HEENT: Reports: No Symptoms Pulmonary: Reports: No Symptoms Cardiovascular: Reports: No Symptoms Gastrointestinal: Reports: No Symptoms Genitourinary: Reports: No Symptoms Musculoskeletal: Reports: No Symptoms Skin: Reports: No Symptoms Neurological: Reports: No Symptoms Psychiatric: Reports: No Symptoms - Patient Data Vitals - Most Recent: Last Vital Signs Temp 98 F 08/25/20 15:21 Pulse 77 08/25/20 15:21 Resp 17 08/25/20 15:21 BP 142/65 H 08/25/20 15:21 Pulse Ox 94 L 08/25/20 15:21 Weight - Most Recent: 146 lb I&O - Last 24 Hours: Intake & Output 08/25/20 08/25/20 08/25/20 06:59 14:59 22:59 Intake Total 400 820 Output Total 1000 1300 Balance -600 -480 Lab Results Last 24 Hours: Laboratory Results - last 24 hr 08/25/20 08/25/20 08/25/20 Range/Units 05:00 05:00 09:57 WBC 6.77 (4.0-11.0) K/uL RBC 3.43 L (4.30-5.90) M/uL Hgb 11.1 L (12.0-16.0) g/dL Hct 35.0 L (36.0-46.0) % MCV 102.0 H (80.0-98.0) fL MCH 32.4 H (27.0-32.0) pg MCHC 31.7 (31.0-37.0) g/dL RDW Std Deviation 55.4 (28.0-62.0) fl RDW Coeff of Sánchez 15 (11.0-15.0) % Plt Count 199 (150-400) K/uL MPV 9.40 (7.40-12.00) fL Neut % (Auto) 75.0 (48.0-80.0) % Lymph % (Auto) 17.6 (16.0-40.0) % [place] % (Auto) 7.2 (0.0-15.0) % Eos % (Auto) 0.1 (0.0-7.0) % Baso % (Auto) 0.1 (0.0-1.5) % Neut # (Auto) 5.1 (1.4-5.7) K/uL Lymph # (Auto) 1.2 (0.6-2.4) K/uL [place] # (Auto) 0.5 (0.0-0.8) K/uL Eos # (Auto) 0.0 (0.0-0.7) K/uL Baso # (Auto) 0.0 (0.0-0.1) K/uL Nucleated RBC % 0.0 /100WBC Nucleated RBCs # 0 K/uL Sodium 137 (136-145) mmol/L Potassium 4.2 (3.5-5.1) mmol/L Chloride 105 (98-107) mmol/L Carbon Dioxide 25.7 (21.0-32.0) mmol/L BUN 21 H (7.0-18.0) mg/dL Creatinine 1.0 (0.6-1.0) mg/dL Est Cr Clr Drug Dosing 27.93 mL/min Estimated GFR (MDRD) 52.3 ml/min Glucose 118 H (74-106) mg/dL Calcium 9.6 (8.5-10.1) mg/dL Total Bilirubin 0.4 (0.2-1.0) mg/dL AST 22 (15-37) IU/L ALT 6 L (14-63) IU/L Alkaline Phosphatase 75 (46-116) U/L Total Protein 5.5 L (6.4-8.2) g/dL Albumin 2.0 L (3.4-5.0) g/dL Globulin 3.5 (2.6-4.0) g/dL Albumin/Globulin Ratio 0.6 L (0.9-1.6) Vancomycin Trough 11.4 H (5.0-10.0) ug/mL Nikolai Results Last 24 Hours: Microbiology 08/21/20 10:24 Aerobic Blood Culture - Preliminary Blood - Venous - Lab Draw NO GROWTH AFTER 4 DAYS Anaerobic Blood Culture - Final 08/21/20 09:55 Aerobic Blood Culture - Preliminary Blood - Venous NO GROWTH AFTER 4 DAYS Anaerobic Blood Culture - Preliminary NO GROWTH AFTER 4 DAYS Med Orders - Current: Current Medications Acetaminophen (Tylenol) 650 mg PO Q4H PRN PRN Reason: Pain (Mild 1-3)/fever Last Admin: 08/25/20 14:58 Dose: 650 mg Documented by: Albuterol/Ipratropium (Duoneb 3.0-0.5 Mg/3 Ml) 3 ml NEB Q4HRRT [facility] Last Admin: 08/25/20 13:38 Dose: 3 ml Documented by: Amlodipine Besylate (Norvasc) 5 mg PO DAILY [facility] Last Admin: 08/25/20 08:06 Dose: 5 mg Documented by: Artificial Tears (Refresh Plus 0.5%) 0 each EYEBOTH BID [facility] Last Admin: 08/25/20 08:05 Dose: 1 drop Documented by: Brimonidine Tartrate (Alphagan 0.2% Ophth Soln) 0 ml EYEBOTH BID [facility] Last Admin: 08/25/20 08:05 Dose: 1 drop Documented by: Budesonide/Formoterol Fumarate (Symbicort 160-4.5 Mcg) 0 gm INH BID [facility] Last Admin: 08/25/20 09:37 Dose: 2 puff Documented by: Carbidopa/Levodopa (Sinemet 25-100 Mg) 1 tab PO TID [facility] Last Admin: 08/25/20 13:48 Dose: 1 tab Documented by: Docusate Sodium (Colace) 100 mg PO DAILY PRN PRN Reason: Constipation Last Admin: 08/25/20 08:10 Dose: 100 mg Documented by: Fish Oil (Fish Oil) 1 gm PO BID [facility] Last Admin: 08/25/20 08:06 Dose: 1 gm Documented by: Vancomycin HCl 1 gm/ Sodium (Chloride) 250 mls @ 166.667 mls/hr IV Q24H [facility] Last Admin: 08/25/20 11:37 Dose: 166.667 mls/hr Documented by: Piperacillin Sod/Tazobactam (Sod 3.375 gm/ Sodium Chloride) 50 mls @ 100 mls/hr IV Q6H [facility] Last Admin: 08/25/20 13:43 Dose: 100 mls/hr Documented by: Levothyroxine Sodium (Synthroid) 50 mcg PO ACBREAKFAST [facility] Last Admin: 08/25/20 07:11 Dose: 50 mcg Documented by: Morphine Sulfate (Morphine) 1 mg IVPUSH Q3H PRN PRN Reason: Pain (severe 7-10) Last Admin: 08/25/20 10:18 Dose: 1 mg Documented by: Multivitamins/Minerals/Vitamin C (Tab-A-Harjeet) 1 tab PO DAILY [facility] Last Admin: 08/25/20 08:06 Dose: 1 tab Documented by: Omeprazole (Omeprazole) 20 mg PO BIDAC [facility] Last Admin: 08/25/20 07:11 Dose: 20 mg Documented by: Ondansetron HCl (Zofran) 4 mg IVPUSH Q4H PRN PRN Reason: Nausea/Vomiting Prednisone (Prednisone) 5 mg PO BID [facility] Last Admin: 08/25/20 08:06 Dose: 5 mg Documented by: Sodium Chloride (Saline Flush) 10 ml FLUSH ASDIRECTED PRN PRN Reason: Keep Vein Open Last Admin: 08/21/20 10:27 Dose: 10 ml Documented by: Sodium Chloride (Saline Flush) 2.5 ml FLUSH ASDIRECTED PRN PRN Reason: Keep Vein Open Last Admin: 08/21/20 10:26 Dose: 2.5 ml Documented by: Timolol Maleate (Timoptic 0.5% [facility] Sol) 0 ml EYEBOTH BID [facility] Last Admin: 08/25/20 08:05 Dose: 1 drop Documented by: Vancomycin HCl (Pharmacy To Dose - Vancomycin) 1 dose .XX ASDIRECTED [facility] Discontinued Medications Albuterol/Ipratropium (Duoneb 3.0-0.5 Mg/3 Ml) 3 ml NEB Q4HRRT PRN PRN Reason: Shortness Of Breath/wheezing Last Admin: 08/22/20 03:27 Dose: 3 ml Documented by: Enoxaparin Sodium (Lovenox) 40 mg SUBCUT Q12H [facility] Last Admin: 08/22/20 03:22 Dose: 40 mg Documented by: Enoxaparin Sodium (Lovenox) 70 mg SUBCUT Q24H [facility] Last Admin: 08/24/20 18:00 Dose: 70 mg Documented by: Vancomycin HCl 1.1 gm/ (Dextrose/Water) 250 mls @ 167 mls/hr IV ONETIME ONE Stop: 08/21/20 11:35 Last Admin: 08/21/20 10:38 Dose: Not Given Documented by: Ceftriaxone Sodium 1 gm/ (Sodium Chloride) 100 mls @ 200 mls/hr IV STAT ONE Stop: 08/21/20 10:35 Last Admin: 08/21/20 10:27 Dose: Not Given Documented by: Sodium Chloride (Normal Saline) 1,000 mls @ 999 mls/hr IV BOLUS ONE; Protocol Stop: 08/21/20 11:06 Last Admin: 08/21/20 10:24 Dose: 999 mls/hr Documented by: Ceftriaxone Sodium/Dextrose 1 (gm/ Premix) 50 mls @ 100 mls/hr IV STAT ONE Stop: 08/21/20 10:59 Last Admin: 08/21/20 10:25 Dose: 100 mls/hr Documented by: Vancomycin HCl 1.25 gm/ Premix 250 mls @ 167.007 mls/hr IV ONETIME ONE Stop: 08/21/20 11:59 Last Admin: 08/21/20 10:37 Dose: 167.007 mls/hr Documented by: Lactated Ringer's (Ringers, Lactated) 1,000 mls @ 125 mls/hr IV ASDIRECTED [facility] Last Admin: 08/25/20 02:35 Dose: 125 mls/hr Documented by: Vancomycin HCl 1 gm/ Sodium (Chloride) 250 mls @ 166.667 mls/hr IV Q24H [facility] Last Admin: 08/22/20 11:46 Dose: Not Given Documented by: Magnesium Sulfate (Magnesium Sulfate In Water Premix) 2 gm in 50 mls @ 50 mls/hr IV ONETIME ONE Stop: 08/22/20 09:35 Last Admin: 08/22/20 08:43 Dose: 50 mls/hr Documented by: Lactated Ringer's (Ringers, Lactated) 1,000 mls @ 999 mls/hr IV BOLUS [facility] Stop: 08/22/20 13:01 Last Admin: 08/22/20 12:55 Dose: 999 mls/hr Documented by: Iopamidol (Isovue Multipack-370 (76%)) 100 ml IVPUSH ONETIME STA Stop: 08/24/20 23:40 Last Admin: 08/24/20 23:40 Dose: 100 ml Documented by: Ketorolac Tromethamine (Toradol) 15 mg IVPUSH ONETIME STA Stop: 08/21/20 11:25 Last Admin: 08/21/20 11:32 Dose: 15 mg Documented by: Ketorolac Tromethamine (Toradol) 15 mg IM ONETIME ONE Stop: 08/21/20 14:17 Last Admin: 08/21/20 14:37 Dose: 15 mg Documented by: Lidocaine HCl (Xylocaine 1%) 10 ml INJECT ONETIME ONE Stop: 08/25/20 09:29 Last Admin: 08/25/20 10:17 Dose: 10 ml Documented by: Morphine Sulfate (Morphine) 2 mg IVPUSH ONETIME ONE Stop: 08/21/20 10:35 Last Admin: 08/21/20 10:37 Dose: 2 mg Documented by: Morphine Sulfate (Morphine) Confirm Administered Dose 2 mg .ROUTE .STK-MED ONE Stop: 08/21/20 10:36 Last Admin: 08/21/20 10:38 Dose: Not Given Documented by: Morphine Sulfate (Morphine) 2 mg IVPUSH ONETIME ONE Stop: 08/21/20 11:01 Last Admin: 08/21/20 11:06 Dose: 2 mg Documented by: Non-Formulary Medication (Mineral Oil/Petrolatum,White [Refresh P.M.]) 1 applic EYEBOTH BEDTIME [facility] Non-Formulary Medication (Mouthwash-Om) 1 dose PO ASDIRECTED PRN PRN Reason: Other Polyethylene Glycol (Miralax) 17 gm PO ONETIME ONE Stop: 08/22/20 10:35 Last Admin: 08/22/20 11:41 Dose: 17 gm Documented by: - Exam Quality Assessment: DVT Prophylaxis (Was on full dose Lovenox weight-based, will hold today's dose due to procedure) General: Alert, Oriented, Cooperative, No Acute Distress HEENT: Pupils Equal, Pupils Reactive, EOMI, Mucous Membr. Moist/Progress Neck: Supple. No: Lymphadenopathy Lungs: Clear to Auscultation, Normal Respiratory Effort Cardiovascular: Regular Rate, Regular Rhythm GI/Abdominal Exam: Normal Bowel Sounds Extremities: Normal Inspection, Normal Range of Motion, Normal Capillary Refill, Pedal Edema (1+, chronic). No: Shahid's Sign, Leg Pain, Limited Range of Motion, Increased Warmth, Redness Peripheral Pulses: 2+: Radial (L), Radial (R), Dorsalis Pedis (L), Dorsalis Pedis (R) Wound/Incisions: Dressing Dry and Intact Neurological: No New Focal Deficit Psy/Mental Status: Alert, Normal Affect, Normal Mood Sepsis Event Note - Evaluation Sepsis Screening Result: No Definite Risk - Focused Exam Vital Signs: Vital Signs Temp Pulse Resp BP BP Pulse Ox 08/25/20 15:21 98 F 77 17 142/65 H 94 L 08/25/20 11:34 96.9 F 58 L 18 108/58 L 91 L 08/25/20 08:06 164/88 H 08/25/20 07:50 98.2 F 102 H 18 164/88 H 92 L 08/25/20 04:41 96.8 F L 102 H 18 169/84 H 95 - Problem List Review Problem List Initiated/Reviewed/Updated: Yes - My Orders Last 24 Hours: My Active Orders 08/24/20 15:55 Consult to Physician [CONS] Routine 08/24/20 15:56 Notify Provider Consults [RC] ASDIRECTED 08/26/20 05:11 CBC WITH AUTO DIFF [HEME] AM CMP [COMPREHENSIVE METABOLIC PN,CMP] [CHEM] AM 08/27/20 05:11 CBC WITH AUTO DIFF [HEME] AM CMP [COMPREHENSIVE METABOLIC PN,CMP] [CHEM] AM 08/28/20 05:11 CBC WITH AUTO DIFF [HEME] AM CMP [COMPREHENSIVE METABOLIC PN,CMP] [CHEM] AM - Plan Plan:: Patient is a 89-year-old female admitted for right arm cellulitis and 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 1. Cellulitis: Improved, decreased erythema and swelling arm and forearm, however has noted possible small abscess on the dorsal aspect of right hand to be, swollen, erythematous, tender and fluctuant was assessed with further imaging CT scan indicated possible small abscess, surgery performed I&D procedure this morning which the patient tolerated well. Leukocytosis continues to trend down, 6.8 today, patient remains afebrile Continue antibiotics vancomycin, add zosyn Blood cultures indicated no growth and wound culture indicated staph aureus. patient reported some pain today 6 out of 10, was using Tylenol as needed, encourage that she may use 1 mg morphine every 3 hours as needed for pain, Tylenol for fever as needed Zofran for nausea 2. Constipation: -Resolved, patient has had 2 bowel movements last 24 hours, abdomen is soft, nontender with normal bowel sounds throughout. Patient is still tolerating p.o. diet appropriately MiraLAX daily Docusate twice daily Encouraged to ambulate and hydrate to encourage bowel motility to allow for bowel movement. 3. Unknown able to perform ADLs independently: Patient understands that she requires more assistance, working with social work to help find placement, likely will go to [place] August 29, 2020. DVT prophylaxis will be held today and will consider resuming prophylactic dose of Lovenox 40 subcu daily every 24, GI prophylaxis 40 pantoprazole daily, up with assistance. sepsis from cellulitis: see note above I performed a history and physical exam of the patient and discussed management with resident. I have reviewed the residents note and agree with documented findings and plan unless otherwise specified in my note.
[2020-08-26] MEDS: Piperacillin/Tazobactam 3.375 GM in Sodium Chloride 0.9% 50 ML IV SCH ×3 (00:50→12:31)
[2020-08-26] MEDS: Albuterol/Ipratropium 3.0-0.5 MG/3 ML Neb Soln NEB SCH ×6 (01:00→21:09)
[2020-08-26] MEDS: Acetaminophen 325 MG Tab PO PRN ×3 (03:37→17:34)
[2020-08-26] MEDS: Carbidopa/Levodopa 25-100 MG Tab PO SCH ×3 (06:34→21:15)
[2020-08-26] MEDS: Omeprazole 20 MG Cap.CR PO SCH ×2 (06:34→16:58)
[2020-08-26] MEDS: Levothyroxine 50 MCG Tab PO SCH (06:34)
[2020-08-26 06:52] LABS: CARBON DIOXIDE,CO2 26.1 mmol/L (21.0-32.0); POTASSIUM,K 4.1 mmol/L (3.5-5.1)
[2020-08-26] MEDS: predniSONE 5 MG Tab PO SCH ×2 (08:42→21:14)
[2020-08-26] MEDS: Multivitamin Tab PO SCH (08:42)
[2020-08-26] MEDS: Fish Oil/Omega-3 Fatty Acids 1 Gm Cap PO SCH ×2 (08:42→21:14)
[2020-08-26] MEDS: amLODIPine 5 MG Tab PO SCH (08:42)
[2020-08-26] MEDS: Carboxymethylcellulose Sodium 0.5% Ophth Soln 0.4 ML UD Box of 30 EYEBOTH SCH ×2 (08:45→21:16)
[2020-08-26] MEDS: Brimonidine 0.2% Ophth Soln 5 ML Bottle EYEBOTH SCH ×2 (08:46→21:15)
[2020-08-26] MEDS: Timolol Maleate 0.5% Ophth Soln 15 ML Bottle EYEBOTH SCH ×2 (08:52→21:15)
[2020-08-26] MEDS: Budesonide/Formoterol 160-4.5 MCG/Puff 6 GM Inhaler INH SCH ×2 (09:11→21:09)
--- NOTE | 2020-08-26 11:37 | PN ---
SUBJECTIVE: The patient says her hand is feeling much better today. She has no complaints other than her hand still feels sore. She is not able to close it, but she feels its improving. OBJECTIVE: Wrapping was taken down on the hand. The patient's hand is considerably less swollen. The area that was of fluctuance in the 5th and 4th metacarpal is basically gone, but there is still some induration and swelling and the small incision has sealed off. There is no drainage. ASSESSMENT AND PLAN: This is a pleasant 89-year-old female who has an infection of her right hand after a fall and a laceration. Swelling and erythema are greatly reduced. Did have evacuation of a large hematoma on the dorsum of her hand yesterday. She is doing well from this. The patient is to continue with keeping her hand clean and dry. She is to continue on her antibiotics. Surgery will sign off for now. Please contact us if there are any changes or further develop of hematomas or abscesses. Did discuss the patient with the Medicine team. TERESA GIBSON /[id number]
--- NOTE | 2020-08-26 14:06 | PCM.PN ---
- General Info Date of Service: 08/26/20 - Review of Systems Systems Review Comment:: hand pain and swelling has improved - Patient Data Vitals - Most Recent: Last Vital Signs Temp 36.3 C 08/26/20 11:11 Pulse 67 08/26/20 11:11 Resp 18 08/26/20 11:11 BP 145/83 H 08/26/20 11:11 Pulse Ox 93 L 08/26/20 11:11 Weight - Most Recent: 66.224 kg I&O - Last 24 Hours: Intake & Output 08/25/20 08/26/20 08/26/20 22:59 06:59 14:59 Intake Total 1120 720 Output Total 1300 800 Balance -180 -80 Lab Results Last 24 Hours: Laboratory Results - last 24 hr 08/26/20 08/26/20 Range/Units 05:20 05:20 WBC 6.13 (4.0-11.0) K/uL RBC 3.46 L (4.30-5.90) M/uL Hgb 11.2 L (12.0-16.0) g/dL Hct 35.7 L (36.0-46.0) % MCV 103.2 H (80.0-98.0) fL MCH 32.4 H (27.0-32.0) pg MCHC 31.4 (31.0-37.0) g/dL RDW Std Deviation 56.7 (28.0-62.0) fl RDW Coeff of Sánchez 15 (11.0-15.0) % Plt Count 230 (150-400) K/uL MPV 9.70 (7.40-12.00) fL Neut % (Auto) 72.7 (48.0-80.0) % Lymph % (Auto) 17.8 (16.0-40.0) % [place] % (Auto) 9.3 (0.0-15.0) % Eos % (Auto) 0.2 (0.0-7.0) % Baso % (Auto) 0.0 (0.0-1.5) % Neut # (Auto) 4.5 (1.4-5.7) K/uL Lymph # (Auto) 1.1 (0.6-2.4) K/uL [place] # (Auto) 0.6 (0.0-0.8) K/uL Eos # (Auto) 0.0 (0.0-0.7) K/uL Baso # (Auto) 0.0 (0.0-0.1) K/uL Nucleated RBC % 0.0 /100WBC Nucleated RBCs # 0 K/uL Sodium 139 (136-145) mmol/L Potassium 4.1 (3.5-5.1) mmol/L Chloride 104 (98-107) mmol/L Carbon Dioxide 26.1 (21.0-32.0) mmol/L BUN 20 H (7.0-18.0) mg/dL Creatinine 0.9 (0.6-1.0) mg/dL Est Cr Clr Drug Dosing 31.04 mL/min Estimated GFR (MDRD) 59.1 ml/min Glucose 118 H (74-106) mg/dL Calcium 9.4 (8.5-10.1) mg/dL Total Bilirubin 0.3 (0.2-1.0) mg/dL AST 28 (15-37) IU/L ALT 12 L (14-63) IU/L Alkaline Phosphatase 76 (46-116) U/L Total Protein 5.6 L (6.4-8.2) g/dL Albumin 2.1 L (3.4-5.0) g/dL Globulin 3.5 (2.6-4.0) g/dL Albumin/Globulin Ratio 0.6 L (0.9-1.6) Nikolai Results Last 24 Hours: Microbiology 08/21/20 10:24 Aerobic Blood Culture - Final Blood - Venous - Lab Draw NO GROWTH AFTER 5 DAYS Anaerobic Blood Culture - Final 08/21/20 09:55 Aerobic Blood Culture - Final Blood - Venous NO GROWTH AFTER 5 DAYS Anaerobic Blood Culture - Final NO GROWTH AFTER 5 DAYS Med Orders - Current: Current Medications Acetaminophen (Tylenol) 650 mg PO Q4H PRN PRN Reason: Pain (Mild 1-3)/fever Last Admin: 08/26/20 11:46 Dose: 650 mg Documented by: Albuterol/Ipratropium (Duoneb 3.0-0.5 Mg/3 Ml) 3 ml NEB Q4HRRT [facility] Last Admin: 08/26/20 13:27 Dose: 3 ml Documented by: Amlodipine Besylate (Norvasc) 5 mg PO DAILY [facility] Last Admin: 08/26/20 08:42 Dose: 5 mg Documented by: Artificial Tears (Refresh Plus 0.5%) 0 each EYEBOTH BID [facility] Last Admin: 08/26/20 08:45 Dose: 1 drop Documented by: Brimonidine Tartrate (Alphagan 0.2% Ophth Soln) 0 ml EYEBOTH BID [facility] Last Admin: 08/26/20 08:46 Dose: 1 drop Documented by: Budesonide/Formoterol Fumarate (Symbicort 160-4.5 Mcg) 0 gm INH BID [facility] Last Admin: 08/26/20 09:11 Dose: 2 puff Documented by: Carbidopa/Levodopa (Sinemet 25-100 Mg) 1 tab PO TID [facility] Last Admin: 08/26/20 13:01 Dose: 1 tab Documented by: Docusate Sodium (Colace) 100 mg PO DAILY PRN PRN Reason: Constipation Last Admin: 08/25/20 08:10 Dose: 100 mg Documented by: Fish Oil (Fish Oil) 1 gm PO BID [facility] Last Admin: 08/26/20 08:42 Dose: 1 gm Documented by: Levothyroxine Sodium (Synthroid) 50 mcg PO ACBREAKFAST [facility] Last Admin: 08/26/20 06:34 Dose: 50 mcg Documented by: Morphine Sulfate (Morphine) 1 mg IVPUSH Q3H PRN PRN Reason: Pain (severe 7-10) Last Admin: 08/25/20 10:18 Dose: 1 mg Documented by: Multivitamins/Minerals/Vitamin C (Tab-A-Harjeet) 1 tab PO DAILY [facility] Last Admin: 08/26/20 08:42 Dose: 1 tab Documented by: Omeprazole (Omeprazole) 20 mg PO BIDAC [facility] Last Admin: 08/26/20 06:34 Dose: 20 mg Documented by: Ondansetron HCl (Zofran) 4 mg IVPUSH Q4H PRN PRN Reason: Nausea/Vomiting Prednisone (Prednisone) 5 mg PO BID [facility] Last Admin: 08/26/20 08:42 Dose: 5 mg Documented by: Sodium Chloride (Saline Flush) 10 ml FLUSH ASDIRECTED PRN PRN Reason: Keep Vein Open Last Admin: 08/21/20 10:27 Dose: 10 ml Documented by: Sodium Chloride (Saline Flush) 2.5 ml FLUSH ASDIRECTED PRN PRN Reason: Keep Vein Open Last Admin: 08/21/20 10:26 Dose: 2.5 ml Documented by: Timolol Maleate (Timoptic 0.5% Ophth Soln) 0 ml EYEBOTH BID [facility] Last Admin: 08/26/20 08:52 Dose: 1 drop Documented by: Trimethoprim/Sulfamethoxazole (Septra Ds) 1 tab PO BID [facility] Vancomycin HCl (Pharmacy To Dose - Vancomycin) 1 dose .XX ASDIRECTED [facility] Discontinued Medications Albuterol/Ipratropium (Duoneb 3.0-0.5 Mg/3 Ml) 3 ml NEB Q4HRRT PRN PRN Reason: Shortness Of Breath/wheezing Last Admin: 08/22/20 03:27 Dose: 3 ml Documented by: Enoxaparin Sodium (Lovenox) 40 mg SUBCUT Q12H [facility] Last Admin: 08/22/20 03:22 Dose: 40 mg Documented by: Enoxaparin Sodium (Lovenox) 70 mg SUBCUT Q24H [facility] Last Admin: 08/24/20 18:00 Dose: 70 mg Documented by: Vancomycin HCl 1.1 gm/ (Dextrose/Water) 250 mls @ 167 mls/hr IV ONETIME ONE Stop: 08/21/20 11:35 Last Admin: 08/21/20 10:38 Dose: Not Given Documented by: Ceftriaxone Sodium 1 gm/ (Sodium Chloride) 100 mls @ 200 mls/hr IV STAT ONE Stop: 08/21/20 10:35 Last Admin: 08/21/20 10:27 Dose: Not Given Documented by: Sodium Chloride (Normal Saline) 1,000 mls @ 999 mls/hr IV BOLUS ONE; Protocol Stop: 08/21/20 11:06 Last Admin: 08/21/20 10:24 Dose: 999 mls/hr Documented by: Ceftriaxone Sodium/Dextrose 1 (gm/ Premix) 50 mls @ 100 mls/hr IV STAT ONE Stop: 08/21/20 10:59 Last Admin: 08/21/20 10:25 Dose: 100 mls/hr Documented by: Vancomycin HCl 1.25 gm/ Premix 250 mls @ 167.007 mls/hr IV ONETIME ONE Stop: 08/21/20 11:59 Last Admin: 08/21/20 10:37 Dose: 167.007 mls/hr Documented by: Lactated Ringer's (Ringers, Lactated) 1,000 mls @ 125 mls/hr IV ASDIRECTED [facility] Last Admin: 08/25/20 02:35 Dose: 125 mls/hr Documented by: Vancomycin HCl 1 gm/ Sodium (Chloride) 250 mls @ 166.667 mls/hr IV Q24H [facility] Last Admin: 08/22/20 11:46 Dose: Not Given Documented by: Magnesium Sulfate (Magnesium Sulfate In Water Premix) 2 gm in 50 mls @ 50 mls/hr IV ONETIME ONE Stop: 08/22/20 09:35 Last Admin: 08/22/20 08:43 Dose: 50 mls/hr Documented by: Vancomycin HCl 1 gm/ Sodium (Chloride) 250 mls @ 166.667 mls/hr IV Q24H [facility] Last Admin: 08/26/20 10:39 Dose: 166.667 mls/hr Documented by: Lactated Ringer's (Ringers, Lactated) 1,000 mls @ 999 mls/hr IV BOLUS [facility] Stop: 08/22/20 13:01 Last Admin: 08/22/20 12:55 Dose: 999 mls/hr Documented by: Piperacillin Sod/Tazobactam (Sod 3.375 gm/ Sodium Chloride) 50 mls @ 100 mls/hr IV Q6H [facility] Last Admin: 08/26/20 12:31 Dose: 100 mls/hr Documented by: Iopamidol (Isovue Multipack-370 (76%)) 100 ml IVPUSH ONETIME STA Stop: 08/24/20 23:40 Last Admin: 08/24/20 23:40 Dose: 100 ml Documented by: Ketorolac Tromethamine (Toradol) 15 mg IVPUSH ONETIME STA Stop: 08/21/20 11:25 Last Admin: 08/21/20 11:32 Dose: 15 mg Documented by: Ketorolac Tromethamine (Toradol) 15 mg IM ONETIME ONE Stop: 08/21/20 14:17 Last Admin: 08/21/20 14:37 Dose: 15 mg Documented by: Lidocaine HCl (Xylocaine 1%) 10 ml INJECT ONETIME ONE Stop: 08/25/20 09:29 Last Admin: 08/25/20 10:17 Dose: 10 ml Documented by: Morphine Sulfate (Morphine) 2 mg IVPUSH ONETIME ONE Stop: 08/21/20 10:35 Last Admin: 08/21/20 10:37 Dose: 2 mg Documented by: Morphine Sulfate (Morphine) Confirm Administered Dose 2 mg .ROUTE .STK-MED ONE Stop: 08/21/20 10:36 Last Admin: 08/21/20 10:38 Dose: Not Given Documented by: Morphine Sulfate (Morphine) 2 mg IVPUSH ONETIME ONE Stop: 08/21/20 11:01 Last Admin: 08/21/20 11:06 Dose: 2 mg Documented by: Non-Formulary Medication (Mineral Oil/Petrolatum,White [Refresh P.M.]) 1 applic EYEBOTH BEDTIME ANAMARIA Non-Formulary Medication (Mouthwash-Om) 1 dose PO ASDIRECTED PRN PRN Reason: Other Polyethylene Glycol (Miralax) 17 gm PO ONETIME ONE Stop: 08/22/20 10:35 Last Admin: 08/22/20 11:41 Dose: 17 gm Documented by: - Exam General: Alert, Oriented Neck: Supple Lungs: Clear to Auscultation, Normal Respiratory Effort Cardiovascular: Regular Rate, Regular Rhythm GI/Abdominal Exam: Normal Bowel Sounds, Soft, Non-Tender, No Distention Extremities: Normal Inspection, Non-Tender, Other (erythema and swelling of dosum of right hand improving, minimal drainage,) Sepsis Event Note - Evaluation Sepsis Screening Result: No Definite Risk - Focused Exam Vital Signs: Vital Signs Temp Pulse Resp BP BP Pulse Ox 08/26/20 11:11 36.3 C 67 18 145/83 H 93 L 08/26/20 08:42 148/73 H 08/26/20 08:40 36.6 C 85 18 143/78 H 95 08/26/20 04:00 73 16 147/74 H 95 08/26/20 03:39 36.3 C 93 18 174/97 H 93 L - Problem List Review Problem List Initiated/Reviewed/Updated: Yes - My Orders Last 24 Hours: My Active Orders 08/26/20 21:00 Sulfamethoxazole/Trimethoprim [Septra DS] 1 tab PO BID - Plan Plan:: Patient is a 89-year-old female admitted for right arm cellulitis and 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 1. Cellulitis: s/p I&D yesterday, of hematoma/abscess, will transition to oral antibitotics will place on Heparin for DVT prophylaxis, U/S showed possible chronic thrombus but no acute DVT Dispo: likely to SNF on Saturday or when bed available.
[2020-08-26] MEDS: Heparin Sodium 5,000 Units/ML Vial SUBCUT SCH (14:26)
[2020-08-26] MEDS: Sulfamethoxazole/Trimethoprim 800-160 MG Tab PO SCH (21:15)
[2020-08-27] MEDS: Acetaminophen 325 MG Tab PO PRN ×2 (00:24→13:01)
[2020-08-27] MEDS: Albuterol/Ipratropium 3.0-0.5 MG/3 ML Neb Soln NEB SCH ×7 (02:42→21:38)
[2020-08-27] MEDS: Heparin Sodium 5,000 Units/ML Vial SUBCUT SCH ×2 (02:42→15:03)
[2020-08-27] MEDS: Levothyroxine 50 MCG Tab PO SCH (06:55)
[2020-08-27] MEDS: Omeprazole 20 MG Cap.CR PO SCH ×2 (06:55→16:48)
[2020-08-27] MEDS: Carbidopa/Levodopa 25-100 MG Tab PO SCH ×3 (06:55→21:18)
[2020-08-27 06:56] LABS: CARBON DIOXIDE,CO2 28.4 mmol/L (21.0-32.0); POTASSIUM,K 4.5 mmol/L (3.5-5.1)
[2020-08-27] MEDS: Multivitamin Tab PO SCH (08:38)
[2020-08-27] MEDS: Sulfamethoxazole/Trimethoprim 800-160 MG Tab PO SCH ×2 (08:38→21:19)
[2020-08-27] MEDS: predniSONE 5 MG Tab PO SCH ×2 (08:38→21:05)
[2020-08-27] MEDS: Fish Oil/Omega-3 Fatty Acids 1 Gm Cap PO SCH ×2 (08:38→21:05)
[2020-08-27] MEDS: amLODIPine 5 MG Tab PO SCH (08:38)
[2020-08-27] MEDS: Carboxymethylcellulose Sodium 0.5% Ophth Soln 0.4 ML UD Box of 30 EYEBOTH SCH ×2 (08:39→21:06)
[2020-08-27] MEDS: Timolol Maleate 0.5% Ophth Soln 15 ML Bottle EYEBOTH SCH ×2 (08:41→21:12)
[2020-08-27] MEDS: Brimonidine 0.2% Ophth Soln 5 ML Bottle EYEBOTH SCH ×2 (08:42→21:07)
--- NOTE | 2020-08-27 09:27 | PCM.PN ---
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 There were no overnight events, this morning feels better, erythema has improved, but still remains swollen and red. Pain is well controlled, patient is tolerating p.o. diet. Denies any fever, chills, shortness of breath. Functional Status: Reports: Pain Controlled, Tolerating Diet - Review of Systems General: Reports: No Symptoms HEENT: Reports: No Symptoms Pulmonary: Reports: No Symptoms Cardiovascular: Reports: No Symptoms Gastrointestinal: Reports: No Symptoms Genitourinary: Reports: No Symptoms Musculoskeletal: Reports: No Symptoms Skin: Reports: No Symptoms Neurological: Reports: No Symptoms Psychiatric: Reports: No Symptoms - Patient Data Vitals - Most Recent: Last Vital Signs Temp 96.8 F L 08/27/20 08:00 Pulse 95 08/27/20 08:00 Resp 19 08/27/20 08:00 BP 154/90 H 08/27/20 08:38 Pulse Ox 92 L 08/27/20 08:00 Weight - Most Recent: 146 lb I&O - Last 24 Hours: Intake & Output 08/26/20 08/27/20 08/27/20 22:59 06:59 14:59 Intake Total 640 550 Output Total 1950 750 Balance -1310 -200 Lab Results Last 24 Hours: Laboratory Results - last 24 hr 08/27/20 08/27/20 Range/Units 05:45 05:45 WBC 8.61 (4.0-11.0) K/uL RBC 3.90 L (4.30-5.90) M/uL Hgb 12.4 (12.0-16.0) g/dL Hct 40.8 (36.0-46.0) % MCV 104.6 H (80.0-98.0) fL MCH 31.8 (27.0-32.0) pg MCHC 30.4 L (31.0-37.0) g/dL RDW Std Deviation 57.5 (28.0-62.0) fl RDW Coeff of Sánchez 15 (11.0-15.0) % Plt Count 285 (150-400) K/uL MPV 9.80 (7.40-12.00) fL Neut % (Auto) 72.0 (48.0-80.0) % Lymph % (Auto) 17.1 (16.0-40.0) % [place] % (Auto) 10.1 (0.0-15.0) % Eos % (Auto) 0.7 (0.0-7.0) % Baso % (Auto) 0.1 (0.0-1.5) % Neut # (Auto) 6.2 H (1.4-5.7) K/uL Lymph # (Auto) 1.5 (0.6-2.4) K/uL [place] # (Auto) 0.9 H (0.0-0.8) K/uL Eos # (Auto) 0.1 (0.0-0.7) K/uL Baso # (Auto) 0.0 (0.0-0.1) K/uL Nucleated RBC % 0.5 /100WBC Nucleated RBCs # 0 K/uL Sodium 138 (136-145) mmol/L Potassium 4.5 (3.5-5.1) mmol/L Chloride 103 (98-107) mmol/L Carbon Dioxide 28.4 (21.0-32.0) mmol/L BUN 24 H (7.0-18.0) mg/dL Creatinine 1.0 (0.6-1.0) mg/dL Est Cr Clr Drug Dosing 27.93 mL/min Estimated GFR (MDRD) 52.3 ml/min Glucose 102 (74-106) mg/dL Calcium 10.2 H (8.5-10.1) mg/dL Total Bilirubin 0.3 (0.2-1.0) mg/dL AST 35 (15-37) IU/L ALT 16 (14-63) IU/L Alkaline Phosphatase 91 (46-116) U/L Total Protein 6.5 (6.4-8.2) g/dL Albumin 2.5 L (3.4-5.0) g/dL Globulin 4.0 (2.6-4.0) g/dL Albumin/Globulin Ratio 0.6 L (0.9-1.6) Nikolai Results Last 24 Hours: Microbiology 08/21/20 10:24 Aerobic Blood Culture - Final Blood - Venous - Lab Draw NO GROWTH AFTER 5 DAYS Anaerobic Blood Culture - Final 08/21/20 09:55 Aerobic Blood Culture - Final Blood - Venous NO GROWTH AFTER 5 DAYS Anaerobic Blood Culture - Final NO GROWTH AFTER 5 DAYS Med Orders - Current: Current Medications Acetaminophen (Tylenol) 650 mg PO Q4H PRN PRN Reason: Pain (Mild 1-3)/fever Last Admin: 08/27/20 00:24 Dose: 650 mg Documented by: Albuterol/Ipratropium (Duoneb 3.0-0.5 Mg/3 Ml) 3 ml NEB Q4HRRT [facility] Last Admin: 08/27/20 06:22 Dose: 3 ml Documented by: Amlodipine Besylate (Norvasc) 5 mg PO DAILY [facility] Last Admin: 08/27/20 08:38 Dose: 5 mg Documented by: Artificial Tears (Refresh Plus 0.5%) 0 each EYEBOTH BID [facility] Last Admin: 08/27/20 08:39 Dose: 1 drop Documented by: Brimonidine Tartrate (Alphagan 0.2% [facility]) 0 ml EYEBOTH BID [facility] Last Admin: 08/27/20 08:42 Dose: 1 drop Documented by: Budesonide/Formoterol Fumarate (Symbicort 160-4.5 Mcg) 0 gm INH BID [facility] Last Admin: 08/26/20 21:09 Dose: 2 puff Documented by: Carbidopa/Levodopa (Sinemet 25-100 Mg) 1 tab PO TID [facility] Last Admin: 08/27/20 06:55 Dose: 1 tab Documented by: Docusate Sodium (Colace) 100 mg PO DAILY PRN PRN Reason: Constipation Last Admin: 08/25/20 08:10 Dose: 100 mg Documented by: Fish Oil (Fish Oil) 1 gm PO BID [facility] Last Admin: 08/27/20 08:38 Dose: 1 gm Documented by: Heparin Sodium (Porcine) (Heparin Sodium) 5,000 units SUBCUT Q12H [facility] Last Admin: 08/27/20 02:42 Dose: 5,000 units Documented by: Levothyroxine Sodium (Synthroid) 50 mcg PO ACBREAKFAST [facility] Last Admin: 08/27/20 06:55 Dose: 50 mcg Documented by: Morphine Sulfate (Morphine) 1 mg IVPUSH Q3H PRN PRN Reason: Pain (severe 7-10) Last Admin: 08/25/20 10:18 Dose: 1 mg Documented by: Multivitamins/Minerals/Vitamin C (Tab-A-Harjeet) 1 tab PO DAILY [facility] Last Admin: 08/27/20 08:38 Dose: 1 tab Documented by: Omeprazole (Omeprazole) 20 mg PO BIDAC [facility] Last Admin: 08/27/20 06:55 Dose: 20 mg Documented by: Ondansetron HCl (Zofran) 4 mg IVPUSH Q4H PRN PRN Reason: Nausea/Vomiting Prednisone (Prednisone) 5 mg PO BID [facility] Last Admin: 08/27/20 08:38 Dose: 5 mg Documented by: Sodium Chloride (Saline Flush) 10 ml FLUSH ASDIRECTED PRN PRN Reason: Keep Vein Open Last Admin: 08/21/20 10:27 Dose: 10 ml Documented by: Sodium Chloride (Saline Flush) 2.5 ml FLUSH ASDIRECTED PRN PRN Reason: Keep Vein Open Last Admin: 08/21/20 10:26 Dose: 2.5 ml Documented by: Timolol Maleate (Timoptic 0.5% Ophth Soln) 0 ml EYEBOTH BID [facility] Last Admin: 08/27/20 08:41 Dose: 1 drop Documented by: Trimethoprim/Sulfamethoxazole (Septra Ds) 1 tab PO BID [facility] Last Admin: 08/27/20 08:38 Dose: 1 tab Documented by: Discontinued Medications Albuterol/Ipratropium (Duoneb 3.0-0.5 Mg/3 Ml) 3 ml NEB Q4HRRT PRN PRN Reason: Shortness Of Breath/wheezing Last Admin: 08/22/20 03:27 Dose: 3 ml Documented by: Enoxaparin Sodium (Lovenox) 40 mg SUBCUT Q12H [facility] Last Admin: 08/22/20 03:22 Dose: 40 mg Documented by: Enoxaparin Sodium (Lovenox) 70 mg SUBCUT Q24H [facility] Last Admin: 08/24/20 18:00 Dose: 70 mg Documented by: Vancomycin HCl 1.1 gm/ (Dextrose/Water) 250 mls @ 167 mls/hr IV ONETIME ONE Stop: 08/21/20 11:35 Last Admin: 08/21/20 10:38 Dose: Not Given Documented by: Ceftriaxone Sodium 1 gm/ (Sodium Chloride) 100 mls @ 200 mls/hr IV STAT ONE Stop: 08/21/20 10:35 Last Admin: 08/21/20 10:27 Dose: Not Given Documented by: Sodium Chloride (Normal Saline) 1,000 mls @ 999 mls/hr IV BOLUS ONE; Protocol Stop: 08/21/20 11:06 Last Admin: 08/21/20 10:24 Dose: 999 mls/hr Documented by: Ceftriaxone Sodium/Dextrose 1 (gm/ Premix) 50 mls @ 100 mls/hr IV STAT ONE Stop: 08/21/20 10:59 Last Admin: 08/21/20 10:25 Dose: 100 mls/hr Documented by: Vancomycin HCl 1.25 gm/ Premix 250 mls @ 167.007 mls/hr IV ONETIME ONE Stop: 08/21/20 11:59 Last Admin: 08/21/20 10:37 Dose: 167.007 mls/hr Documented by: Lactated Ringer's (Ringers, Lactated) 1,000 mls @ 125 mls/hr IV ASDIRECTED [facility] Last Admin: 08/25/20 02:35 Dose: 125 mls/hr Documented by: Vancomycin HCl 1 gm/ Sodium (Chloride) 250 mls @ 166.667 mls/hr IV Q24H [facility] Last Admin: 08/22/20 11:46 Dose: Not Given Documented by: Magnesium Sulfate (Magnesium Sulfate In Water Premix) 2 gm in 50 mls @ 50 mls/hr IV ONETIME ONE Stop: 08/22/20 09:35 Last Admin: 08/22/20 08:43 Dose: 50 mls/hr Documented by: Vancomycin HCl 1 gm/ Sodium (Chloride) 250 mls @ 166.667 mls/hr IV Q24H [facility] Last Admin: 08/26/20 10:39 Dose: 166.667 mls/hr Documented by: Lactated Ringer's (Ringers, Lactated) 1,000 mls @ 999 mls/hr IV BOLUS [facility] Stop: 08/22/20 13:01 Last Admin: 08/22/20 12:55 Dose: 999 mls/hr Documented by: Piperacillin Sod/Tazobactam (Sod 3.375 gm/ Sodium Chloride) 50 mls @ 100 mls/hr IV Q6H [facility] Last Admin: 08/26/20 12:31 Dose: 100 mls/hr Documented by: Iopamidol (Isovue Multipack-370 (76%)) 100 ml IVPUSH ONETIME STA Stop: 08/24/20 23:40 Last Admin: 08/24/20 23:40 Dose: 100 ml Documented by: Ketorolac Tromethamine (Toradol) 15 mg IVPUSH ONETIME STA Stop: 08/21/20 11:25 Last Admin: 08/21/20 11:32 Dose: 15 mg Documented by: Ketorolac Tromethamine (Toradol) 15 mg IM ONETIME ONE Stop: 08/21/20 14:17 Last Admin: 08/21/20 14:37 Dose: 15 mg Documented by: Lidocaine HCl (Xylocaine 1%) 10 ml INJECT ONETIME ONE Stop: 08/25/20 09:29 Last Admin: 08/25/20 10:17 Dose: 10 ml Documented by: Morphine Sulfate (Morphine) 2 mg IVPUSH ONETIME ONE Stop: 08/21/20 10:35 Last Admin: 08/21/20 10:37 Dose: 2 mg Documented by: Morphine Sulfate (Morphine) Confirm Administered Dose 2 mg .ROUTE .STK-MED ONE Stop: 08/21/20 10:36 Last Admin: 08/21/20 10:38 Dose: Not Given Documented by: Morphine Sulfate (Morphine) 2 mg IVPUSH ONETIME ONE Stop: 08/21/20 11:01 Last Admin: 08/21/20 11:06 Dose: 2 mg Documented by: Non-Formulary Medication (Mineral Oil/Petrolatum,White [Refresh P.M.]) 1 applic EYEBOTH BEDTIME [facility] Non-Formulary Medication (Mouthwash-Om) 1 dose PO ASDIRECTED PRN PRN Reason: Other Polyethylene Glycol (Miralax) 17 gm PO ONETIME ONE Stop: 08/22/20 10:35 Last Admin: 08/22/20 11:41 Dose: 17 gm Documented by: Vancomycin HCl (Pharmacy To Dose - Vancomycin) 1 dose .XX ASDIRECTED ANAMARIA - Exam Quality Assessment: DVT Prophylaxis General: Alert, Oriented, Cooperative, No Acute Distress HEENT: Pupils Equal, Pupils Reactive, EOMI, Mucous Membr. Moist/[place] Neck: Supple Lungs: Clear to Auscultation, Normal Respiratory Effort Cardiovascular: Regular Rate, Regular Rhythm GI/Abdominal Exam: Normal Bowel Sounds, Soft, Non-Tender, No Distention Back Exam: Normal Inspection Extremities: Normal Inspection, Normal Range of Motion, Non-Tender, No Pedal Edema, Normal Capillary Refill Peripheral Pulses: 2+: Radial (L), Radial (R), Popliteal (L), Popliteal (R) Skin: Warm, Dry, Intact Wound/Incisions: Healing Well Neurological: No New Focal Deficit Psy/Mental Status: Alert, Normal Affect, Normal Mood Sepsis Event Note - Evaluation Sepsis Screening Result: No Definite Risk - Focused Exam Vital Signs: Vital Signs Temp Pulse Resp BP BP Pulse Ox 08/27/20 08:38 154/90 H 08/27/20 08:00 96.8 F L 95 19 154/90 H 92 L 08/27/20 03:00 97.8 F 71 18 158/74 H 93 L 08/26/20 23:00 98.7 F 77 14 139/67 94 L - Problem List Review Problem List Initiated/Reviewed/Updated: Yes - My Orders Last 24 Hours: My Active Orders 08/28/20 05:11 CBC WITH AUTO DIFF [HEME] AM CMP [COMPREHENSIVE METABOLIC PN,CMP] [CHEM] AM - Plan Plan:: Patient is a 89-year-old female admitted for right arm cellulitis and 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 1. Cellulitis: -s/p I&D 2 days ago, pain is well controlled, mild increase in leukocyte count 8.6, mild improvement from yesterday with regards to erythema and swelling, was started on piperacillin tazobactam yesterday. -Started on Heparin for DVT prophylaxis, U/S showed possible chronic thrombus but no acute DVT Dispo: likely to SNF on Saturday or when bed available.
[2020-08-27] MEDS: Budesonide/Formoterol 160-4.5 MCG/Puff 6 GM Inhaler INH SCH ×2 (09:31→21:10)
[2020-08-28] MEDS: Albuterol/Ipratropium 3.0-0.5 MG/3 ML Neb Soln NEB SCH ×7 (02:02→21:03)
[2020-08-28] MEDS: Heparin Sodium 5,000 Units/ML Vial SUBCUT SCH ×2 (02:03→15:48)
[2020-08-28] MEDS: Acetaminophen 325 MG Tab PO PRN ×2 (02:23→09:50)
[2020-08-28] MEDS: Carbidopa/Levodopa 25-100 MG Tab PO SCH ×3 (06:22→21:16)
[2020-08-28] MEDS: Levothyroxine 50 MCG Tab PO SCH (06:29)
[2020-08-28] MEDS: Omeprazole 20 MG Cap.CR PO SCH ×2 (06:29→17:21)
[2020-08-28 06:39] LABS: CARBON DIOXIDE,CO2 26.1 mmol/L (21.0-32.0); POTASSIUM,K 4.5 mmol/L (3.5-5.1)
--- NOTE | 2020-08-28 08:53 | PCM.PN ---
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 There were no overnight events, this morning feels better, erythema has improved, but still remains swollen and red. Pain is well controlled, patient is tolerating p.o. diet. Denies any fever, chills, shortness of breath. Functional Status: Reports: Pain Controlled, Tolerating Diet - Review of Systems General: Reports: No Symptoms HEENT: Reports: No Symptoms Pulmonary: Reports: No Symptoms Cardiovascular: Reports: No Symptoms Gastrointestinal: Reports: No Symptoms Genitourinary: Reports: No Symptoms Musculoskeletal: Reports: Hand Pain (Significantly improved), Joint Swelling (Significantly improved as cellulitis is resolving) Skin: Reports: Other (Cellulitis is improving, erythema and swelling have resol clint over arm and right alexander) Neurological: Reports: No Symptoms Psychiatric: Reports: No Symptoms - Patient Data Vitals - Most Recent: Last Vital Signs Temp 98 F 08/28/20 07:19 Pulse 74 08/28/20 07:19 Resp 16 08/28/20 07:19 BP 145/85 H 08/28/20 07:19 Pulse Ox 94 L 08/28/20 07:19 Weight - Most Recent: 146 lb I&O - Last 24 Hours: Intake & Output 08/27/20 08/28/20 08/28/20 22:59 06:59 14:59 Intake Total 686 500 Output Total 740 1000 Balance -54 -500 Lab Results Last 24 Hours: Laboratory Results - last 24 hr 08/28/20 08/28/20 Range/Units 05:50 05:50 WBC 8.98 (4.0-11.0) K/uL RBC 3.61 L (4.30-5.90) M/uL Hgb 11.8 L (12.0-16.0) g/dL Hct 37.6 (36.0-46.0) % MCV 104.2 H (80.0-98.0) fL MCH 32.7 H (27.0-32.0) pg MCHC 31.4 (31.0-37.0) g/dL RDW Std Deviation 56.6 (28.0-62.0) fl RDW Coeff of Sánchez 15 (11.0-15.0) % Plt Count 300 (150-400) K/uL MPV 9.70 (7.40-12.00) fL Add Manual Diff YES Neutrophils % (Manual) 75 (48.0-80.0) % Band Neutrophils % 1 % Lymphocytes % (Manual) 18 (16.0-40.0) % Monocytes % (Manual) 5 (0.0-15.0) % Myelocytes % 1 % Nucleated RBC % 0.3 /100WBC Absolute Seg Neuts 6.7 H (1.4-5.7) Band Neutrophils # 0.1 Lymphocytes # (Manual) 1.6 (0.6-2.4) Monocytes # (Manual) 0.4 (0.0-0.8) Absolute Myelocytes 0.1 Nucleated RBCs # 0 K/uL Sodium 137 (136-145) mmol/L Potassium 4.5 (3.5-5.1) mmol/L Chloride 104 (98-107) mmol/L Carbon Dioxide 26.1 (21.0-32.0) mmol/L BUN 28 H (7.0-18.0) mg/dL Creatinine 0.9 (0.6-1.0) mg/dL Est Cr Clr Drug Dosing 31.04 mL/min Estimated GFR (MDRD) 59.1 ml/min Glucose 105 (74-106) mg/dL Calcium 9.9 (8.5-10.1) mg/dL Total Bilirubin 0.3 (0.2-1.0) mg/dL AST 20 (15-37) IU/L ALT 11 L (14-63) IU/L Alkaline Phosphatase 80 (46-116) U/L Total Protein 5.8 L (6.4-8.2) g/dL Albumin 2.4 L (3.4-5.0) g/dL Globulin 3.4 (2.6-4.0) g/dL Albumin/Globulin Ratio 0.7 L (0.9-1.6) Med Orders - Current: Current Medications Acetaminophen (Tylenol) 650 mg PO Q4H PRN PRN Reason: Pain (Mild 1-3)/fever Last Admin: 08/28/20 02:23 Dose: 650 mg Documented by: Albuterol/Ipratropium (Duoneb 3.0-0.5 Mg/3 Ml) 3 ml NEB Q4HRRT [facility] Last Admin: 08/28/20 06:02 Dose: 3 ml Documented by: Amlodipine Besylate (Norvasc) 5 mg PO DAILY [facility] Last Admin: 08/27/20 08:38 Dose: 5 mg Documented by: Artificial Tears (Refresh Plus 0.5%) 0 each EYEBOTH BID [facility] Last Admin: 08/27/20 21:06 Dose: 1 drop Documented by: Brimonidine Tartrate (Alphagan 0.2% Oph Sol) 0 ml EYEBOTH BID [facility] Last Admin: 08/27/20 21:07 Dose: 1 drop Documented by: Budesonide/Formoterol Fumarate (Symbicort 160-4.5 Mcg) 0 gm INH BID [facility] Last Admin: 08/27/20 21:10 Dose: 2 puff Documented by: Carbidopa/Levodopa (Sinemet 25-100 Mg) 1 tab PO TID [facility] Last Admin: 08/28/20 06:22 Dose: 1 tab Documented by: Docusate Sodium (Colace) 100 mg PO DAILY PRN PRN Reason: Constipation Last Admin: 08/25/20 08:10 Dose: 100 mg Documented by: Fish Oil (Fish Oil) 1 gm PO BID [facility] Last Admin: 08/27/20 21:05 Dose: 1 gm Documented by: Heparin Sodium (Porcine) (Heparin Sodium) 5,000 units SUBCUT Q12H [facility] Last Admin: 08/28/20 02:03 Dose: 5,000 units Documented by: Levothyroxine Sodium (Synthroid) 50 mcg PO ACBREAKFAST [facility] Last Admin: 08/28/20 06:29 Dose: 50 mcg Documented by: Morphine Sulfate (Morphine) 1 mg IVPUSH Q3H PRN PRN Reason: Pain (severe 7-10) Last Admin: 08/25/20 10:18 Dose: 1 mg Documented by: Multivitamins/Minerals/Vitamin C (Tab-A-Harjeet) 1 tab PO DAILY [facility] Last Admin: 08/27/20 08:38 Dose: 1 tab Documented by: Omeprazole (Omeprazole) 20 mg PO BIDAC [facility] Last Admin: 08/28/20 06:29 Dose: 20 mg Documented by: Ondansetron HCl (Zofran) 4 mg IVPUSH Q4H PRN PRN Reason: Nausea/Vomiting Prednisone (Prednisone) 5 mg PO BID [facility] Last Admin: 08/27/20 21:05 Dose: 5 mg Documented by: Sodium Chloride (Saline Flush) 10 ml FLUSH ASDIRECTED PRN PRN Reason: Keep Vein Open Last Admin: 08/21/20 10:27 Dose: 10 ml Documented by: Sodium Chloride (Saline Flush) 2.5 ml FLUSH ASDIRECTED PRN PRN Reason: Keep Vein Open Last Admin: 08/21/20 10:26 Dose: 2.5 ml Documented by: Timolol Maleate (Timoptic 0.5% Ophth Soln) 0 ml EYEBOTH BID [facility] Last Admin: 08/27/20 21:12 Dose: 1 drop Documented by: Trimethoprim/Sulfamethoxazole (Septra Ds) 1 tab PO BID [facility] Last Admin: 08/27/20 21:19 Dose: 1 tab Documented by: Discontinued Medications Albuterol/Ipratropium (Duoneb 3.0-0.5 Mg/3 Ml) 3 ml NEB Q4HRRT PRN PRN Reason: Shortness Of Breath/wheezing Last Admin: 08/22/20 03:27 Dose: 3 ml Documented by: Enoxaparin Sodium (Lovenox) 40 mg SUBCUT Q12H [facility] Last Admin: 08/22/20 03:22 Dose: 40 mg Documented by: Enoxaparin Sodium (Lovenox) 70 mg SUBCUT Q24H [facility] Last Admin: 08/24/20 18:00 Dose: 70 mg Documented by: Vancomycin HCl 1.1 gm/ (Dextrose/Water) 250 mls @ 167 mls/hr IV ONETIME ONE Stop: 08/21/20 11:35 Last Admin: 08/21/20 10:38 Dose: Not Given Documented by: Ceftriaxone Sodium 1 gm/ (Sodium Chloride) 100 mls @ 200 mls/hr IV STAT ONE Stop: 08/21/20 10:35 Last Admin: 08/21/20 10:27 Dose: Not Given Documented by: Sodium Chloride (Normal Saline) 1,000 mls @ 999 mls/hr IV BOLUS ONE; Protocol Stop: 08/21/20 11:06 Last Admin: 08/21/20 10:24 Dose: 999 mls/hr Documented by: Ceftriaxone Sodium/Dextrose 1 (gm/ Premix) 50 mls @ 100 mls/hr IV STAT ONE Stop: 08/21/20 10:59 Last Admin: 08/21/20 10:25 Dose: 100 mls/hr Documented by: Vancomycin HCl 1.25 gm/ Premix 250 mls @ 167.007 mls/hr IV ONETIME ONE Stop: 08/21/20 11:59 Last Admin: 08/21/20 10:37 Dose: 167.007 mls/hr Documented by: Lactated Ringer's (Ringers, Lactated) 1,000 mls @ 125 mls/hr IV ASDIRECTED [facility] Last Admin: 08/25/20 02:35 Dose: 125 mls/hr Documented by: Vancomycin HCl 1 gm/ Sodium (Chloride) 250 mls @ 166.667 mls/hr IV Q24H [facility] Last Admin: 08/22/20 11:46 Dose: Not Given Documented by: Magnesium Sulfate (Magnesium Sulfate In Water Premix) 2 gm in 50 mls @ 50 mls/hr IV ONETIME ONE Stop: 08/22/20 09:35 Last Admin: 08/22/20 08:43 Dose: 50 mls/hr Documented by: Vancomycin HCl 1 gm/ Sodium (Chloride) 250 mls @ 166.667 mls/hr IV Q24H [facility] Last Admin: 08/26/20 10:39 Dose: 166.667 mls/hr Documented by: Lactated Ringer's (Ringers, Lactated) 1,000 mls @ 999 mls/hr IV BOLUS [facility] Stop: 08/22/20 13:01 Last Admin: 08/22/20 12:55 Dose: 999 mls/hr Documented by: Piperacillin Sod/Tazobactam (Sod 3.375 gm/ Sodium Chloride) 50 mls @ 100 mls/hr IV Q6H [facility] Last Admin: 08/26/20 12:31 Dose: 100 mls/hr Documented by: Iopamidol (Isovue Multipack-370 (76%)) 100 ml IVPUSH ONETIME STA Stop: 08/24/20 23:40 Last Admin: 08/24/20 23:40 Dose: 100 ml Documented by: Ketorolac Tromethamine (Toradol) 15 mg IVPUSH ONETIME STA Stop: 08/21/20 11:25 Last Admin: 08/21/20 11:32 Dose: 15 mg Documented by: Ketorolac Tromethamine (Toradol) 15 mg IM ONETIME ONE Stop: 08/21/20 14:17 Last Admin: 08/21/20 14:37 Dose: 15 mg Documented by: Lidocaine HCl (Xylocaine 1%) 10 ml INJECT ONETIME ONE Stop: 08/25/20 09:29 Last Admin: 08/25/20 10:17 Dose: 10 ml Documented by: Morphine Sulfate (Morphine) 2 mg IVPUSH ONETIME ONE Stop: 08/21/20 10:35 Last Admin: 08/21/20 10:37 Dose: 2 mg Documented by: Morphine Sulfate (Morphine) Confirm Administered Dose 2 mg .ROUTE .STK-MED ONE Stop: 08/21/20 10:36 Last Admin: 08/21/20 10:38 Dose: Not Given Documented by: Morphine Sulfate (Morphine) 2 mg IVPUSH ONETIME ONE Stop: 08/21/20 11:01 Last Admin: 08/21/20 11:06 Dose: 2 mg Documented by: Non-Formulary Medication (Mineral Oil/Petrolatum,White [Refresh P.M.]) 1 applic EYEBOTH BEDTIME [facility] Non-Formulary Medication (Mouthwash-Om) 1 dose PO ASDIRECTED PRN PRN Reason: Other Polyethylene Glycol (Miralax) 17 gm PO ONETIME ONE Stop: 08/22/20 10:35 Last Admin: 08/22/20 11:41 Dose: 17 gm Documented by: Vancomycin HCl (Pharmacy To Dose - Vancomycin) 1 dose .XX ASDIRECTED ANAMARIA - Exam Quality Assessment: DVT Prophylaxis General: Alert, Oriented HEENT: Pupils Equal, Pupils Reactive, EOMI, Mucous Membr. Moist/[place] Neck: Supple Lungs: Clear to Auscultation, Normal Respiratory Effort Cardiovascular: Regular Rate, Regular Rhythm GI/Abdominal Exam: Normal Bowel Sounds, Soft, Non-Tender, No Organomegaly, No Distention, No Mass Extremities: Normal Inspection, Normal Range of Motion, Non-Tender, No Pedal Edema Peripheral Pulses: 2+: Radial (L), Radial (R), Dorsalis Pedis (L), Dorsalis Pedis (R) Skin: Warm, Dry, Intact Wound/Incisions: Healing Well (Dorsal aspect of right hand is healing well) Neurological: No New Focal Deficit Psy/Mental Status: Alert, Normal Affect, Normal Mood Sepsis Event Note - Evaluation Sepsis Screening Result: No Definite Risk - Focused Exam Vital Signs: Vital Signs Temp Pulse Resp BP Pulse Ox 08/28/20 07:19 98 F 74 16 145/85 H 94 L 08/28/20 04:00 97.8 F 73 16 145/75 H 94 L 08/28/20 00:00 97.5 F 64 18 122/64 95 - Problem List Review Problem List Initiated/Reviewed/Updated: Yes - Plan Plan:: Patient is a 89-year-old female admitted for right arm cellulitis and 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 1. Cellulitis: -s/p I&D 3 days, pain is well controlled, mild increase in leukocyte count 9.0, significant improvement with regards to erythema and swelling, continue on piperacillin tazobactam for a total course of 10 to 14 days. 2. Chronic tibial thrombus-continue on Heparin 5000 subcu for DVT prophylaxis, U/S on admission had show shown possible chronic thrombus but no acute DVT. Dispo: likely to SNF on Saturday or when bed available.
[2020-08-28] MEDS: Timolol Maleate 0.5% Ophth Soln 15 ML Bottle EYEBOTH SCH ×2 (09:42→21:17)
[2020-08-28] MEDS: Sulfamethoxazole/Trimethoprim 800-160 MG Tab PO SCH ×2 (09:43→21:16)
[2020-08-28] MEDS: Fish Oil/Omega-3 Fatty Acids 1 Gm Cap PO SCH ×2 (09:43→21:16)
[2020-08-28] MEDS: Multivitamin Tab PO SCH (09:44)
[2020-08-28] MEDS: amLODIPine 5 MG Tab PO SCH (09:44)
[2020-08-28] MEDS: predniSONE 5 MG Tab PO SCH ×2 (09:44→21:16)
[2020-08-28] MEDS: Brimonidine 0.2% Ophth Soln 5 ML Bottle EYEBOTH SCH ×2 (09:45→21:16)
[2020-08-28] MEDS: Budesonide/Formoterol 160-4.5 MCG/Puff 6 GM Inhaler INH SCH ×2 (10:10→21:03)
[2020-08-28] MEDS: Carboxymethylcellulose Sodium 0.5% Ophth Soln 0.4 ML UD Box of 30 EYEBOTH PRN ×2 (11:44→17:14)
[2020-08-28] MEDS ORDERED: Calcium Carbonate 500 MG Tab.Chew PO PRN (23:25)
[2020-08-29] MEDS: Albuterol/Ipratropium 3.0-0.5 MG/3 ML Neb Soln NEB SCH ×4 (02:33→13:13)
[2020-08-29] MEDS: Heparin Sodium 5,000 Units/ML Vial SUBCUT SCH (02:33)
[2020-08-29] MEDS: Acetaminophen 325 MG Tab PO PRN ×2 (03:15→12:34)
[2020-08-29 06:10] LABS: CARBON DIOXIDE,CO2 26.8 mmol/L (21.0-32.0); POTASSIUM,K 5.2 mmol/L (3.5-5.1)
[2020-08-29] MEDS: Omeprazole 20 MG Cap.CR PO SCH (06:33)
[2020-08-29] MEDS: Levothyroxine 50 MCG Tab PO SCH (06:33)
[2020-08-29] MEDS: Carbidopa/Levodopa 25-100 MG Tab PO SCH ×2 (06:34→15:14)
[2020-08-29] MEDS ORDERED: Sulfamethoxazole/Trimethoprim 800-160 MG Tab PO SCH (09:00)
[2020-08-29] MEDS: Budesonide/Formoterol 160-4.5 MCG/Puff 6 GM Inhaler INH SCH (09:08)
--- NOTE | 2020-08-29 09:57 | PCM.DCSUM1 ---
<Grace Peters - Last Filed: 08/29/20 19:37> Discharge Summary - Hospital Course Brief History: Patient is a janene 89-year-old female with a past medical history of hypertension, asthma, Parkinson's and glaucoma. Patient came into ER with right arm pain and swelling since 2 days. States she had a bad fall for 5 days ago hurting her right arm and leg. States that she caught her dorsal aspect of the right hand. Over the last 2 days it appears to have become infected. She denies any fever, chills. States that pain medication and antibiotics given in the ED has helped with the pain initially a 10 out of 10 now a 4-5 on the pain scale described as a throb. There is significant erythema and swelling with pustular exudate draining from the cut. States that pain is worse with movement and better with rest. Patient denies any fever, chills, cough, GI, symptoms, leg pain, shortness of breath. ER course: Patient was given Vanco and Rocephin, Toradol/morphine, bolus of normal saline. 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 Right arm and leg Diagnosis: Stroke: No - Discharge Data Discharge Date: 08/29/20 Discharge Disposition: DC/Tfer to SNF 03 Condition: Stable - Referral to Home Health Primary Care Physician: PCP None - Patient Summary/Data Consults: Consultations 08/24/20 15:55 Consult to Physician [CONS] Routine Hospital Course: Patient was admitted with right hand cellulitis and possible right lower extremity cellulitis, treated with IV antibiotics. Possible abscess development on her right hand therefore had I&D completed. Patient tolerated procedure well, no purulent material was drained except for possible hematoma. Patient was transitioned to p.o. antibiotics and discharged for an additional 6 days of clindamycin. - Patient Instructions Diet: Heart Healthy Diet Activity: As Tolerated (with walker ) Driving: Do Not Drive Showering/Bathing: May Shower Wound/Incision Care: Keep Operative Site/Wound Site Clean and Dry, Change Dressing Daily Notify Provider of: Fever, Increased Pain, Swelling and Redness, Drainage, Nausea and/or Vomiting - Discharge Plan *PRESCRIPTION DRUG MONITORING PROGRAM REVIEWED*: Not Applicable *COPY OF PRESCRIPTION DRUG MONITORING REPORT IN PATIENT LISBETH: Not Applicable Prescriptions/Med Rec: clindamycin HCL [Cleocin] 450 mg PO Q8H 6 Days #18 cap Home Medications: Home Meds Levothyroxine [Synthroid] 50 mcg PO DAILY 02/22/14 [History] Carbidopa/Levodopa [Carbidopa-Levodopa 25-100 Tab] 25 - 100 tab PO TID 04/19/16 [History] Mouthwash-Om 1 dose PO ASDIRECTED PRN 04/19/16 [History] Multivitamin [Daily Multiple Vitamin] 1 tab PO DAILY 04/19/16 [History] Omeprazole 20 mg PO DAILY 04/19/16 [History] Ubidecarenone [Co Q-10] 1 cap PO DAILY 04/19/16 [History] predniSONE [Prednisone] 5 mg PO BID 04/19/16 [History] Acetaminophen [Tylenol] 650 mg PO ASDIRECTED PRN 12/12/18 [History] Albuterol Sulfate [Proair Respiclick] 2 puff INH Q6H PRN 12/12/18 [History] Albuterol [Proventil] 2.5 mg INH Q4HRRT 12/12/18 [History] Better Woman 1 tab PO DAILY 12/12/18 [History] Brimonidine [Alphagan 0.2% Ophth Soln] 1 drop EYEBOTH BID 12/12/18 [History] Budesonide/Formoterol [Symbicort 160-4.5 MCG] 2 puff INH BID 12/12/18 [History] Carboxymethylcellulose Sodium [Refresh Tears] 1 drop EYEBOTH DAILY 12/12/18 [History] Fish Oil/[place]-3 Fatty Acids [Fish Oil 1,000 MG] 1,000 mg PO BID 12/12/18 [History] Mineral Oil/Petrolatum,White [Refresh P.M.] 1 applic EYEBOTH BEDTIME 12/12/18 [History] amLODIPine [Norvasc] 5 mg PO DAILY 12/12/18 [History] timoloL maleate [Timoptic 0.5% Ophth Soln] 1 drop EYEBOTH BID 12/12/18 [History] Codeine Phosphate/Guaifenesin [Guaifen-Codeine 100-10 mg/5 ml] 1 tsp PO Q4HR PRN 08/21/20 [History] Magnesium Hydroxide [Milk of Magnesia] 2 tsp PO DAILY PRN 08/21/20 [History] Melatonin/Pyridoxine HCl (B6) [Melatonin 5 mg Tablet] 1 each PO Q4HR PRN 08/21/20 [History] Acetaminophen [Tylenol] 650 mg PO Q4H PRN tablet 08/29/20 [Rx] Albuterol/Ipratropium [DuoNeb 3.0-0.5 MG/3 ML] 3 ml NEB Q4HRRT neb 08/29/20 [Rx] Calcium Carbonate [Tums] 1,000 mg PO TID PRN tab.chew 08/29/20 [Rx] Docusate Sodium [Colace] 100 mg PO DAILY PRN #0 cap 08/29/20 [Rx] clindamycin HCL [Cleocin] 450 mg PO Q8H 6 Days #18 cap 08/29/20 [Rx] Oxygen Therapy Mode: Room Air Patient Handouts: Nonsutured Laceration Care Referrals: Adam Ash MD [Ordering Only Provider] - 08/31/20 10:00 am - Discharge Summary/Plan Comment DC Time >30 min.: Yes (Due to discharge to [facility]) Discharge Summary/Plan Comment: Patient will be discharged to [facility] to help with her daily ADLs, as well as strengthening patient. Furthermore patient has been resumed on her home medications. Is medically stable and will be sent home with prescription of c lindamycin for an additional 6 days. Patient is to follow-up with PCP within the week to reevaluate treated cellulitis and medications. - Patient Data Vitals - Most Recent: Last Vital Signs Temp 97.3 F 08/29/20 07:15 Pulse 76 08/29/20 07:15 Resp 18 08/29/20 07:15 BP 127/70 08/29/20 07:15 Pulse Ox 94 L 08/29/20 07:15 Weight - Most Recent: 66.224 kg I&O - Last 24 hours: Intake & Output 08/28/20 08/29/20 08/29/20 22:59 06:59 14:59 Intake Total 930 680 Output Total 1312 550 Balance -382 130 Lab Results - Last 24 hrs: Laboratory Results - last 24 hr 08/29/20 08/29/20 Range/Units 05:35 05:35 WBC 9.72 (4.0-11.0) K/uL RBC 3.48 L (4.30-5.90) M/uL Hgb 11.4 L (12.0-16.0) g/dL Hct 36.0 (36.0-46.0) % MCV 103.4 H (80.0-98.0) fL MCH 32.8 H (27.0-32.0) pg MCHC 31.7 (31.0-37.0) g/dL RDW Std Deviation 56.7 (28.0-62.0) fl RDW Coeff of Sánchez 15 (11.0-15.0) % Plt Count 311 (150-400) K/uL MPV 9.70 (7.40-12.00) fL Add Manual Diff YES Neutrophils % (Manual) 75 (48.0-80.0) % Band Neutrophils % 1 % Lymphocytes % (Manual) 17 (16.0-40.0) % Monocytes % (Manual) 4 (0.0-15.0) % Metamyelocytes % 2 % Myelocytes % 1 % Nucleated RBC % 0.0 /100WBC Absolute Seg Neuts 7.3 H (1.4-5.7) Band Neutrophils # 0.1 Lymphocytes # (Manual) 1.7 (0.6-2.4) Monocytes # (Manual) 0.4 (0.0-0.8) Absolute Metamyelocyte 0.2 Absolute Myelocytes 0.1 Nucleated RBCs # 0 K/uL Sodium 138 (136-145) mmol/L Potassium 5.2 H (3.5-5.1) mmol/L Chloride 105 (98-107) mmol/L Carbon Dioxide 26.8 (21.0-32.0) mmol/L BUN 33 H (7.0-18.0) mg/dL Creatinine 1.2 H (0.6-1.0) mg/dL Est Cr Clr Drug Dosing 23.28 mL/min Estimated GFR (MDRD) 42.4 ml/min Glucose 96 (74-106) mg/dL Calcium 10.1 (8.5-10.1) mg/dL Total Bilirubin 0.2 (0.2-1.0) mg/dL AST 14 L (15-37) IU/L ALT 9 L (14-63) IU/L Alkaline Phosphatase 78 (46-116) U/L Total Protein 5.7 L (6.4-8.2) g/dL Albumin 2.4 L (3.4-5.0) g/dL Globulin 3.3 (2.6-4.0) g/dL Albumin/Globulin Ratio 0.7 L (0.9-1.6) Med Orders - Current: Current Medications Acetaminophen (Tylenol) 650 mg PO Q4H PRN PRN Reason: Pain (Mild 1-3)/fever Last Admin: 08/29/20 03:15 Dose: 650 mg Documented by: Albuterol/Ipratropium (Duoneb 3.0-0.5 Mg/3 Ml) 3 ml NEB Q4HRRT [facility] Last Admin: 08/29/20 09:09 Dose: 3 ml Documented by: Amlodipine Besylate (Norvasc) 5 mg PO DAILY [facility] Last Admin: 08/28/20 09:44 Dose: 5 mg Documented by: Artificial Tears (Refresh Plus 0.5%) 1 each EYEBOTH Q2HR PRN PRN Reason: Dry Eyes Last Admin: 08/28/20 17:14 Dose: 1 drop Documented by: Brimonidine Tartrate (Alphagan 0.2% Ophth Soln) 0 ml EYEBOTH BID [facility] Last Admin: 08/28/20 21:16 Dose: 1 drop Documented by: Budesonide/Formoterol Fumarate (Symbicort 160-4.5 Mcg) 0 gm INH BID [facility] Last Admin: 08/29/20 09:08 Dose: 2 puff Documented by: Calcium Carbonate/Glycine (Tums) 1,000 mg PO TID PRN PRN Reason: Indigestion Last Admin: 08/28/20 23:38 Dose: 1,000 mg Documented by: Carbidopa/Levodopa (Sinemet 25-100 Mg) 1 tab PO TID [facility] Last Admin: 08/29/20 06:34 Dose: 1 tab Documented by: Docusate Sodium (Colace) 100 mg PO DAILY PRN PRN Reason: Constipation Last Admin: 08/25/20 08:10 Dose: 100 mg Documented by: Fish Oil (Fish Oil) 1 gm PO BID [facility] Last Admin: 08/28/20 21:16 Dose: 1 gm Documented by: Heparin Sodium (Porcine) (Heparin Sodium) 5,000 units SUBCUT Q12H [facility] Last Admin: 08/29/20 02:33 Dose: 5,000 units Documented by: Levothyroxine Sodium (Synthroid) 50 mcg PO ACBREAKFAST [facility] Last Admin: 08/29/20 06:33 Dose: 50 mcg Documented by: Morphine Sulfate (Morphine) 1 mg IVPUSH Q3H PRN PRN Reason: Pain (severe 7-10) Last Admin: 08/25/20 10:18 Dose: 1 mg Documented by: Multivitamins/Minerals/Vitamin C (Tab-A-Harjeet) 1 tab PO DAILY [facility] Last Admin: 08/28/20 09:44 Dose: 1 tab Documented by: Omeprazole (Omeprazole) 20 mg PO BIDAC [facility] Last Admin: 08/29/20 06:33 Dose: 20 mg Documented by: Ondansetron HCl (Zofran) 4 mg IVPUSH Q4H PRN PRN Reason: Nausea/Vomiting Prednisone (Prednisone) 5 mg PO BID [facility] Last Admin: 08/28/20 21:16 Dose: 5 mg Documented by: Sodium Chloride (Saline Flush) 10 ml FLUSH ASDIRECTED PRN PRN Reason: Keep Vein Open Last Admin: 08/21/20 10:27 Dose: 10 ml Documented by: Sodium Chloride (Saline Flush) 2.5 ml FLUSH ASDIRECTED PRN PRN Reason: Keep Vein Open Last Admin: 08/21/20 10:26 Dose: 2.5 ml Documented by: Timolol Maleate (Timoptic 0.5% Ophth Soln) 0 ml EYEBOTH BID [facility] Last Admin: 08/28/20 21:17 Dose: 1 drop Documented by: Trimethoprim/Sulfamethoxazole (Septra Ds) 0.5 tab PO BID [facility] Discontinued Medications Albuterol/Ipratropium (Duoneb 3.0-0.5 Mg/3 Ml) 3 ml NEB Q4HRRT PRN PRN Reason: Shortness Of Breath/wheezing Last Admin: 08/22/20 03:27 Dose: 3 ml Documented by: Artificial Tears (Refresh Plus 0.5%) 0 each EYEBOTH BID [facility] Last Admin: 08/27/20 21:06 Dose: 1 drop Documented by: Enoxaparin Sodium (Lovenox) 40 mg SUBCUT Q12H [facility] Last Admin: 08/22/20 03:22 Dose: 40 mg Documented by: Enoxaparin Sodium (Lovenox) 70 mg SUBCUT Q24H [facility] Last Admin: 08/24/20 18:00 Dose: 70 mg Documented by: Vancomycin HCl 1.1 gm/ (Dextrose/Water) 250 mls @ 167 mls/hr IV ONETIME ONE Stop: 08/21/20 11:35 Last Admin: 08/21/20 10:38 Dose: Not Given Documented by: Ceftriaxone Sodium 1 gm/ (Sodium Chloride) 100 mls @ 200 mls/hr IV STAT ONE Stop: 08/21/20 10:35 Last Admin: 08/21/20 10:27 Dose: Not Given Documented by: Sodium Chloride (Normal Saline) 1,000 mls @ 999 mls/hr IV BOLUS ONE; Protocol Stop: 08/21/20 11:06 Last Admin: 08/21/20 10:24 Dose: 999 mls/hr Documented by: Ceftriaxone Sodium/Dextrose 1 (gm/ Premix) 50 mls @ 100 mls/hr IV STAT ONE Stop: 08/21/20 10:59 Last Admin: 08/21/20 10:25 Dose: 100 mls/hr Documented by: Vancomycin HCl 1.25 gm/ Premix 250 mls @ 167.007 mls/hr IV ONETIME ONE Stop: 08/21/20 11:59 Last Admin: 08/21/20 10:37 Dose: 167.007 mls/hr Documented by: Lactated Ringer's (Ringers, Lactated) 1,000 mls @ 125 mls/hr IV ASDIRECTED [facility] Last Admin: 08/25/20 02:35 Dose: 125 mls/hr Documented by: Vancomycin HCl 1 gm/ Sodium (Chloride) 250 mls @ 166.667 mls/hr IV Q24H [facility] Last Admin: 08/22/20 11:46 Dose: Not Given Documented by: Magnesium Sulfate (Magnesium Sulfate In Water Premix) 2 gm in 50 mls @ 50 mls/hr IV ONETIME ONE Stop: 08/22/20 09:35 Last Admin: 08/22/20 08:43 Dose: 50 mls/hr Documented by: Vancomycin HCl 1 gm/ Sodium (Chloride) 250 mls @ 166.667 mls/hr IV Q24H [facility] Last Admin: 08/26/20 10:39 Dose: 166.667 mls/hr Documented by: Lactated Ringer's (Ringers, Lactated) 1,000 mls @ 999 mls/hr IV BOLUS [facility] Stop: 08/22/20 13:01 Last Admin: 08/22/20 12:55 Dose: 999 mls/hr Documented by: Piperacillin Sod/Tazobactam (Sod 3.375 gm/ Sodium Chloride) 50 mls @ 100 mls/hr IV Q6H [facility] Last Admin: 08/26/20 12:31 Dose: 100 mls/hr Documented by: Iopamidol (Isovue Multipack-370 (76%)) 100 ml IVPUSH ONETIME STA Stop: 08/24/20 23:40 Last Admin: 08/24/20 23:40 Dose: 100 ml Documented by: Ketorolac Tromethamine (Toradol) 15 mg IVPUSH ONETIME STA Stop: 08/21/20 11:25 Last Admin: 08/21/20 11:32 Dose: 15 mg Documented by: Ketorolac Tromethamine (Toradol) 15 mg IM ONETIME ONE Stop: 08/21/20 14:17 Last Admin: 08/21/20 14:37 Dose: 15 mg Documented by: Lidocaine HCl (Xylocaine 1%) 10 ml INJECT ONETIME ONE Stop: 08/25/20 09:29 Last Admin: 08/25/20 10:17 Dose: 10 ml Documented by: Morphine Sulfate (Morphine) 2 mg IVPUSH ONETIME ONE Stop: 08/21/20 10:35 Last Admin: 08/21/20 10:37 Dose: 2 mg Documented by: Morphine Sulfate (Morphine) Confirm Administered Dose 2 mg .ROUTE .STK-MED ONE Stop: 08/21/20 10:36 Last Admin: 08/21/20 10:38 Dose: Not Given Documented by: Morphine Sulfate (Morphine) 2 mg IVPUSH ONETIME ONE Stop: 08/21/20 11:01 Last Admin: 08/21/20 11:06 Dose: 2 mg Documented by: Non-Formulary Medication (Mineral Oil/Petrolatum,White [Refresh P.M.]) 1 applic EYEBOTH BEDTIME [facility] Non-Formulary Medication (Mouthwash-Om) 1 dose PO ASDIRECTED PRN PRN Reason: Other Polyethylene Glycol (Miralax) 17 gm PO ONETIME ONE Stop: 08/22/20 10:35 Last Admin: 08/22/20 11:41 Dose: 17 gm Documented by: Trimethoprim/Sulfamethoxazole (Septra Ds) 1 tab PO BID [facility] Last Admin: 08/28/20 21:16 Dose: 1 tab Documented by: Vancomycin HCl (Pharmacy To Dose - Vancomycin) 1 dose .XX ASDIRECTED [facility] <Eligio Celis J - Last Filed: 08/29/20 22:30> Discharge Summary - Referral to Home Health Primary Care Physician: PCP None - Patient Summary/Data Consults: Consultations 08/24/20 15:55 Consult to Physician [CONS] Routine - Patient Data Vitals - Most Recent: Last Vital Signs Temp 36.8 C 08/29/20 12:00 Pulse 66 08/29/20 12:00 Resp 18 08/29/20 12:00 BP 123/58 L 08/29/20 12:00 Pulse Ox 93 L 08/29/20 12:00 I&O - Last 24 hours: Intake & Output 08/29/20 08/29/20 08/29/20 06:59 14:59 22:59 Intake Total 680 600 Output Total 550 640 Balance 130 -40 Lab Results - Last 24 hrs: Laboratory Results - last 24 hr 08/29/20 08/29/20 08/29/20 Range/Units 05:35 05:35 11:30 WBC 9.72 (4.0-11.0) K/uL RBC 3.48 L (4.30-5.90) M/uL Hgb 11.4 L (12.0-16.0) g/dL Hct 36.0 (36.0-46.0) % MCV 103.4 H (80.0-98.0) fL MCH 32.8 H (27.0-32.0) pg MCHC 31.7 (31.0-37.0) g/dL RDW Std Deviation 56.7 (28.0-62.0) fl RDW Coeff of Sánchez 15 (11.0-15.0) % Plt Count 311 (150-400) K/uL MPV 9.70 (7.40-12.00) fL Add Manual Diff YES Neutrophils % (Manual) 75 (48.0-80.0) % Band Neutrophils % 1 % Lymphocytes % (Manual) 17 (16.0-40.0) % Monocytes % (Manual) 4 (0.0-15.0) % Metamyelocytes % 2 % Myelocytes % 1 % Nucleated RBC % 0.0 /100WBC Absolute Seg Neuts 7.3 H (1.4-5.7) Band Neutrophils # 0.1 Lymphocytes # (Manual) 1.7 (0.6-2.4) Monocytes # (Manual) 0.4 (0.0-0.8) Absolute Metamyelocyte 0.2 Absolute Myelocytes 0.1 Nucleated RBCs # 0 K/uL Sodium 138 (136-145) mmol/L Potassium 5.2 H (3.5-5.1) mmol/L Chloride 105 (98-107) mmol/L Carbon Dioxide 26.8 (21.0-32.0) mmol/L BUN 33 H (7.0-18.0) mg/dL Creatinine 1.2 H (0.6-1.0) mg/dL Est Cr Clr Drug Dosing 23.28 mL/min Estimated GFR (MDRD) 42.4 ml/min Glucose 96 (74-106) mg/dL Calcium 10.1 (8.5-10.1) mg/dL Total Bilirubin 0.2 (0.2-1.0) mg/dL AST 14 L (15-37) IU/L ALT 9 L (14-63) IU/L Alkaline Phosphatase 78 (46-116) U/L Total Protein 5.7 L (6.4-8.2) g/dL Albumin 2.4 L (3.4-5.0) g/dL Globulin 3.3 (2.6-4.0) g/dL Albumin/Globulin Ratio 0.7 L (0.9-1.6) SARS-CoV-2 RNA ([facility]) NEGATIVE (NEGATIVE) Med Orders - Current: Current Medications Discontinued Medications Acetaminophen (Tylenol) 650 mg PO Q4H PRN PRN Reason: Pain (Mild 1-3)/fever Last Admin: 08/29/20 12:34 Dose: 650 mg Documented by: Albuterol/Ipratropium (Duoneb 3.0-0.5 Mg/3 Ml) 3 ml NEB Q4HRRT PRN PRN Reason: Shortness Of Breath/wheezing Last Admin: 08/22/20 03:27 Dose: 3 ml Documented by: Albuterol/Ipratropium (Duoneb 3.0-0.5 Mg/3 Ml) 3 ml NEB Q4HRRT [facility] Last Admin: 08/29/20 13:13 Dose: 3 ml Documented by: Amlodipine Besylate (Norvasc) 5 mg PO DAILY [facility] Last Admin: 08/29/20 10:12 Dose: 5 mg Documented by: Artificial Tears (Refresh Plus 0.5%) 0 each EYEBOTH BID [facility] Last Admin: 08/27/20 21:06 Dose: 1 drop Documented by: Artificial Tears (Refresh Plus 0.5%) 1 each EYEBOTH Q2HR PRN PRN Reason: Dry Eyes Last Admin: 08/29/20 12:35 Dose: 1 drop Documented by: Brimonidine Tartrate (Alphagan 0.2% Oph Soln) 0 ml EYEBOTH BID [facility] Last Admin: 08/29/20 10:15 Dose: 1 drop Documented by: Budesonide/Formoterol Fumarate (Symbicort 160-4.5 Mcg) 0 gm INH BID [facility] Last Admin: 08/29/20 09:08 Dose: 2 puff Documented by: Calcium Carbonate/Glycine (Tums) 1,000 mg PO TID PRN PRN Reason: Indigestion Last Admin: 08/28/20 23:38 Dose: 1,000 mg Documented by: Carbidopa/Levodopa (Sinemet 25-100 Mg) 1 tab PO TID [facility] Last Admin: 08/29/20 15:14 Dose: Not Given Documented by: Docusate Sodium (Colace) 100 mg PO DAILY PRN PRN Reason: Constipation Last Admin: 08/25/20 08:10 Dose: 100 mg Documented by: Enoxaparin Sodium (Lovenox) 40 mg SUBCUT Q12H [facility] Last Admin: 08/22/20 03:22 Dose: 40 mg Documented by: Enoxaparin Sodium (Lovenox) 70 mg SUBCUT Q24H [facility] Last Admin: 08/24/20 18:00 Dose: 70 mg Documented by: Fish Oil (Fish Oil) 1 gm PO BID [facility] Last Admin: 08/29/20 10:11 Dose: 1 gm Documented by: Heparin Sodium (Porcine) (Heparin Sodium) 5,000 units SUBCUT Q12H [facility] Last Admin: 08/29/20 02:33 Dose: 5,000 units Documented by: Vancomycin HCl 1.1 gm/ (Dextrose/Water) 250 mls @ 167 mls/hr IV ONETIME ONE Stop: 08/21/20 11:35 Last Admin: 08/21/20 10:38 Dose: Not Given Documented by: Ceftriaxone Sodium 1 gm/ (Sodium Chloride) 100 mls @ 200 mls/hr IV STAT ONE Stop: 08/21/20 10:35 Last Admin: 08/21/20 10:27 Dose: Not Given Documented by: Sodium Chloride (Normal Saline) 1,000 mls @ 999 mls/hr IV BOLUS ONE; Protocol Stop: 08/21/20 11:06 Last Admin: 08/21/20 10:24 Dose: 999 mls/hr Documented by: Ceftriaxone Sodium/Dextrose 1 (gm/ Premix) 50 mls @ 100 mls/hr IV STAT ONE Stop: 08/21/20 10:59 Last Admin: 08/21/20 10:25 Dose: 100 mls/hr Documented by: Vancomycin HCl 1.25 gm/ Premix 250 mls @ 167.007 mls/hr IV ONETIME ONE Stop: 08/21/20 11:59 Last Admin: 08/21/20 10:37 Dose: 167.007 mls/hr Documented by: Lactated Ringer's (Ringers, Lactated) 1,000 mls @ 125 mls/hr IV ASDIRECTED [facility] Last Admin: 08/25/20 02:35 Dose: 125 mls/hr Documented by: Vancomycin HCl 1 gm/ Sodium (Chloride) 250 mls @ 166.667 mls/hr IV Q24H [facility] Last Admin: 08/22/20 11:46 Dose: Not Given Documented by: Magnesium Sulfate (Magnesium Sulfate In Water Premix) 2 gm in 50 mls @ 50 mls/hr IV ONETIME ONE Stop: 08/22/20 09:35 Last Admin: 08/22/20 08:43 Dose: 50 mls/hr Documented by: Vancomycin HCl 1 gm/ Sodium (Chloride) 250 mls @ 166.667 mls/hr IV Q24H [facility] Last Admin: 08/26/20 10:39 Dose: 166.667 mls/hr Documented by: Lactated Ringer's (Ringers, Lactated) 1,000 mls @ 999 mls/hr IV BOLUS [facility] Stop: 08/22/20 13:01 Last Admin: 08/22/20 12:55 Dose: 999 mls/hr Documented by: Piperacillin Sod/Tazobactam (Sod 3.375 gm/ Sodium Chloride) 50 mls @ 100 mls/hr IV Q6H [facility] Last Admin: 08/26/20 12:31 Dose: 100 mls/hr Documented by: Iopamidol (Isovue Multipack-370 (76%)) 100 ml IVPUSH ONETIME STA Stop: 08/24/20 23:40 Last Admin: 08/24/20 23:40 Dose: 100 ml Documented by: Ketorolac Tromethamine (Toradol) 15 mg IVPUSH ONETIME STA Stop: 08/21/20 11:25 Last Admin: 08/21/20 11:32 Dose: 15 mg Documented by: Ketorolac Tromethamine (Toradol) 15 mg IM ONETIME ONE Stop: 08/21/20 14:17 Last Admin: 08/21/20 14:37 Dose: 15 mg Documented by: Levothyroxine Sodium (Synthroid) 50 mcg PO ACBREAKFAST [facility] Last Admin: 08/29/20 06:33 Dose: 50 mcg Documented by: Lidocaine HCl (Xylocaine 1%) 10 ml INJECT ONETIME ONE Stop: 08/25/20 09:29 Last Admin: 08/25/20 10:17 Dose: 10 ml Documented by: Morphine Sulfate (Morphine) 2 mg IVPUSH ONETIME ONE Stop: 08/21/20 10:35 Last Admin: 08/21/20 10:37 Dose: 2 mg Documented by: Morphine Sulfate (Morphine) Confirm Administered Dose 2 mg .ROUTE .STK-MED ONE Stop: 08/21/20 10:36 Last Admin: 08/21/20 10:38 Dose: Not Given Documented by: Morphine Sulfate (Morphine) 2 mg IVPUSH ONETIME ONE Stop: 08/21/20 11:01 Last Admin: 08/21/20 11:06 Dose: 2 mg Documented by: Morphine Sulfate (Morphine) 1 mg IVPUSH Q3H PRN PRN Reason: Pain (severe 7-10) Last Admin: 08/25/20 10:18 Dose: 1 mg Documented by: Multivitamins/Minerals/Vitamin C (Tab-A-Harjeet) 1 tab PO DAILY [facility] Last Admin: 08/29/20 10:12 Dose: 1 tab Documented by: Non-Formulary Medication (Mineral Oil/Petrolatum,White [Refresh P.M.]) 1 applic EYEBOTH BEDTIME [facility] Non-Formulary Medication (Mouthwash-Om) 1 dose PO ASDIRECTED PRN PRN Reason: Other Omeprazole (Omeprazole) 20 mg PO BIDAC [facility] Last Admin: 08/29/20 06:33 Dose: 20 mg Documented by: Ondansetron HCl (Zofran) 4 mg IVPUSH Q4H PRN PRN Reason: Nausea/Vomiting Polyethylene Glycol (Miralax) 17 gm PO ONETIME ONE Stop: 08/22/20 10:35 Last Admin: 08/22/20 11:41 Dose: 17 gm Documented by: Prednisone (Prednisone) 5 mg PO BID [facility] Last Admin: 08/29/20 10:12 Dose: 5 mg Documented by: Sodium Chloride (Saline Flush) 10 ml FLUSH ASDIRECTED PRN PRN Reason: Keep Vein Open Last Admin: 08/21/20 10:27 Dose: 10 ml Documented by: Sodium Chloride (Saline Flush) 2.5 ml FLUSH ASDIRECTED PRN PRN Reason: Keep Vein Open Last Admin: 08/21/20 10:26 Dose: 2.5 ml Documented by: Timolol Maleate (Timoptic 0.5% [facility]) 0 ml EYEBOTH BID [facility] Last Admin: 08/29/20 10:08 Dose: 1 drop Documented by: Trimethoprim/Sulfamethoxazole (Septra Ds) 1 tab PO BID [facility] Last Admin: 08/28/20 21:16 Dose: 1 tab Documented by: Trimethoprim/Sulfamethoxazole (Septra Ds) 0.5 tab PO BID [facility] Last Admin: 08/29/20 10:13 Dose: 0.5 tab Documented by: Vancomycin HCl (Pharmacy To Dose - Vancomycin) 1 dose .XX ASDIRECTED [facility] - Free Text/Narrative Note: I have seen and evaluated the patient. I have discussed findings and treatment plan with resident. I agree with the assessment and plan in the following note.
[2020-08-29] MEDS: Timolol Maleate 0.5% Ophth Soln 15 ML Bottle EYEBOTH SCH (10:08)
[2020-08-29] MEDS: Fish Oil/Omega-3 Fatty Acids 1 Gm Cap PO SCH (10:11)
[2020-08-29] MEDS: Multivitamin Tab PO SCH (10:12)
[2020-08-29] MEDS: predniSONE 5 MG Tab PO SCH (10:12)
[2020-08-29] MEDS: amLODIPine 5 MG Tab PO SCH (10:12)
[2020-08-29] MEDS: Brimonidine 0.2% Ophth Soln 5 ML Bottle EYEBOTH SCH (10:15)
[2020-08-29 12:21] VITALS: BP 123/58; PULSE 66
[2020-08-29] MEDS: Carboxymethylcellulose Sodium 0.5% Ophth Soln 0.4 ML UD Box of 30 EYEBOTH PRN (12:35)
== END 2020-08-29 13:40 | DRG 603 ==
LOC: MW.ED 09:49 → OBSVTOIN 13:31 → UNDOADMOB 13:31 → MW.MS 13:31 → INTOOBSV 13:31 → OBSVTOIN 08-23 11:03 → MW.MS 08-23 11:03 → UNDODISIN 08-29 13:40
PROVIDERS: ADMIT Student in an Organized Health Care Education/Training Program; ATTEND Student in an Organized Health Care Education/Training Program
PROC: 0H9FXZZ Drainage of Right Hand Skin, External Approach (ICD-10-PCS; principal; 2020-08-25)
DX: L03.113 Cellulitis of right upper limb (principal); H91.93 Unspecified hearing loss, bilateral; L03.115 Cellulitis of right lower limb; K21.9 Gastro-esophageal reflux disease without esophagitis; L02.511 Cutaneous abscess of right hand; M06.9 Rheumatoid arthritis, unspecified; I10 Essential (primary) hypertension; J45.909 Unspecified asthma, uncomplicated; G20 Parkinson's disease; I82.541 Chronic embolism and thrombosis of right tibial vein; Z88.1 Allergy status to other antibiotic agents; H40.9 Unspecified glaucoma; H91.90 Unspecified hearing loss, unspecified ear; Z91.048 Other nonmedicinal substance allergy status; H54.7 Unspecified visual loss; Z79.51 Long term (current) use of inhaled steroids; M19.90 Unspecified osteoarthritis, unspecified site; F41.9 Anxiety disorder, unspecified; E03.9 Hypothyroidism, unspecified; Z20.828 Contact with and (suspected) exposure to other viral communicable diseases; Z91.81 History of falling; Z96.641 Presence of right artificial hip joint; K59.00 Constipation, unspecified; Z20.822 Contact with and (suspected) exposure to COVID-19; Z79.890 Hormone replacement therapy; Z79.52 Long term (current) use of systemic steroids; Z79.899 Other long term (current) drug therapy; Z91.040 Latex allergy status; Z88.8 Allergy status to other drugs, medicaments and biological substances; Z91.09 Other allergy status, other than to drugs and biological substances; Z98.49 Cataract extraction status, unspecified eye; Z90.89 Acquired absence of other organs; Z90.49 Acquired absence of other specified parts of digestive tract
CPT/HCPCS: 36415; 71045; 80053; 81001; 83605; 83735; 84100; 85025; 85610; 87040 ×2; 93005; 93970; 96365; 96367; 96375; 99285; J0696; J1885; J2270 ×2; J3370; J7030; U0002; 73201-26-RT; 73201-RT; 73202-26-RT; 73202-RT; 76882; 76882-26; 80048; 80202; 87070; 87077; 87186; 93010; 94640; 96366; 96372; 96376; 99222; 99231; 99232; 99239; 99284; A9270-GY; G0378; J1644; J1650; J2001; J2543; J3475; J7050; J7120; J7512; J7620-GY; Q9967